=== PATIENT | female | born 1975 | race Caucasian/White ===

== ENCOUNTER 2016-07-12 18:53 | Emergency (ER) | payer OTHER ==
[~2016-07-12] VITALS: Ht 160 cm; Wt 71.7 kg
[~2016-07-12 18:53] MED LIST: AMBIEN 10MG10 MG PO; CLONAZEPAM1 MG PO; FLEXERIL10 MG PO; LAMICTAL200 MG PO; LEVOTHROID SO0.05 MG PO; MOBIC 15MG15 MG PO; MOBIC15 MG PO; MOTRIN 600 MG600 MG PO; NAPROXEN500 MG PO; PERCOCET 325 MG1 TA2 PO; PREDNISONE 20MG20 MG PO; VENLAFAXINE HY150 MG PO; VENLAFAXINE HYD75 M1 PO; VICODIN5-300 PO
--- NOTE | 2016-07-12 20:35 | ED MVC/FALL/TRAUMA COMPLAINT ---
History of Present Illness General Chief Complaint: Headache Stated Complaint: PT FELL AND GETTING HEADACHES Source: patient Exam Limitations: no limitations Vital Signs & Intake/Output Vital Signs & Intake/Output Vital Signs Date Time Temp Pulse Resp B/P Pulse O2 O2 Flow FiO2 Ox Delivery Rate 07/120 96.7 80 20 128/80 07/12 1913 97.2 84 20 129/84 97 Room Air ED Intake and Output 07/13 0000 07/12 1200 Intake Total Output Total Balance Patient 158 lb Weight Allergies Coded Allergies: cat dander (UNKNOWN 08/31/15) Reconcile Medications Clonazepam 1 MG TAB 1 TAB PO BID DEPRESSION (Reported) Cyclobenzaprine HCl 10 MG TABLET 1 TAB PO TID spasms Hydrocodone/Acetaminophen (Hydrocodon-Acetaminophen 5-325) 5 MG-325 MG TABLET 1-2 TAB PO Q4-6 PRN PRN pain Ibuprofen 800 MG TABLET 1 TAB PO TID pain Ibuprofen (Motrin 600 MG Tab) 600 MG TAB 1 TAB PO Q6P PRN PAIN Lamotrigine (Lamictal) 200 MG TAB 1 TAB PO DAILY DEPRESSION (Reported) Levothyroxine Sodium (Levothroid Sodium) 0.05 MG TAB 1 TAB PO DAILY AC THYROID (Reported) Naproxen 500 MG TAB 1 TAB PO BID PAIN OXYCODONE HCL/ACETAMINOPHEN (Percocet 5-325 MG Tablet) 325 MG/5 MG TAB 1 TAB PO Q4-6 PRN PRN PAIN VENLAFAXINE HCL (Venlafaxine HCl ER) 75 MG CER 1 CAP PO DAILY DEPRESSION ( Reported) VENLAFAXINE HCL (Venlafaxine HCl ER) 150 MG CER 1 CAP PO DAILY DEPRESSION ( Reported) Zolpidem Tartrate (Ambien 10MG) 10 MG TAB 1 TAB PO QPM SLEEP (Reported) Triage Note: PT TO ED C/O CONTINUED THROBBING HEADACHES, RT SHOULDER AND ARM PAIN S/P FALL 2 WEEKS AGO. HAD XRAYS AFTER FALL. "THE ALIGNMENT IS WRONG ON MY NECK" TAKES RA MEDS AND PERCOCETS 7.5 MG WITH NO RELIEF. Triage Nurses Notes Reviewed? yes Onset: Abrupt Duration: week(s): (2), continues in ED Severity: moderate, severe Injuries/Fall Location: head, neck, upper extremity Loss of Consciousness: brief (seconds) No Modifying Factors: none : No Patient currently breastfeeds: No HPI: 41-year-old female comes in for further evaluation after falling 2 weeks ago her head. Patient reports that she had a loss of consciousness. Patient reports that since the fall that she's had some persistent headaches bitemporal as well as neck pain. Patient had some x-rays of her neck but reports that her symptoms are getting progressively worse and she has pain in her right shoulder now is well. Denies any vomiting. Denies any confusion or slurring of words. Patient has a history of rheumatoid arthritis and reports that she falls intermittently due to pain issues and this is how she fell a couple weeks ago. (MARIA DEL CARMEN OMALLEY) Past History Travel History Traveled to [place] past 21 day No Medical History Any Pertinent Medical History? see below for history Neurological: NONE EENT: NONE Cardiovascular: NONE Respiratory: asthma Gastrointestinal: NONE Hepatic: NONE Renal: NONE Musculoskeletal: rheumatoid arthritis Psychiatric: NONE Endocrine: hypothyroidism Blood Disorders: NONE Cancer(s): NONE PAROLE OR PROBATION OFFICER/Reproductive: NONE Surgical History Surgical History: APPY Psychosocial History What is your primary language Belarusian Tobacco Use: Never used ETOH Use: denies use Illicit Drug Use: denies illicit drug use Family History Hx Contributory? No (MARIA DEL CARMEN OMALLEY) Review of Systems Review of Systems Constitutional: Reports: no symptoms. Eyes: Reports: no symptoms. Ears, Nose, Throat, Mouth: Reports: no symptoms. Respiratory: Reports: no symptoms. Cardiovascular: Reports: no symptoms. Gastrointestinal/Abdominal: Reports: no symptoms. Genitourinary: Reports: no symptoms. Musculoskeletal: Reports: see HPI. Skin: Reports: no symptoms. Neurological/Psychological: Reports: see HPI. All Other Systems: Reviewed and Negative (MARIA DEL CARMEN OMLALEY) Physical Exam Physical Exam General Appearance: well developed/nourished, no apparent distress, alert Head: atraumatic, normal appearance Eyes: Bilateral: normal appearance, PERRL, EOMI. Ears, Nose, Throat, Mouth: hearing grossly normal, moist mucous membrane Neck: normal inspection, full range of motion, normal alignment, paraspinous muscle tender Respiratory: normal breath sounds, chest non-tender, no respiratory distress Cardiovascular: regular rate/rhythm Back: normal inspection Extremities: pain with forward flexion and abduction, full range of motion, radial pulse intact, sensation intact Neurologic/Psych: awake, alert, oriented x 3, normal gait, normal mood/affect Skin: intact, normal color Core Measures ACS in differential dx? No Severe Sepsis Present: No Septic Shock Present: No (MARIA DEL CRAMEN OMALLEY) Progress Differential Diagnosis: abd injury, C/T/L spine injury, ext injury, ICH, pelvis injury, pnemothorax, spinal cord injury Plan of Care: Orders Procedure Date/time Status URINE 07/12 2026 Complete Laboratory Tests 07/12/162129: Urine Test NEGATIVE Diagnostic Imaging: Viewed by Me: Radiology Read, CT Scan. Discussed w/RAD: Radiology Read, CT Scan. Radiology Impression: SERVICE DATE: 07/12/16 EXAM TYPE: RAD - XRY- SHOULDER COMPLETE-RIGHT EXAMINATION: XR SHOULDER, RIGHT CLINICAL INFORMATION: Trauma. Fall. Pain COMPARISON: None TECHNIQUE: Three views of the right shoulder. FINDINGS: There is no acute fracture, subluxation or focal lesion. No abnormal soft tissue calcification. No suspicious abnormality in the visualized right upper chest. Small cystic or erosive changes in the humeral head at the expected insertion of the rotator cuff. IMPRESSION: No fracture or subluxation demonstrated DICTATED BY: MELLY ANGULO MD , SERVICE DATE: 07/12/16 EXAM TYPE: CAT - CT CERV SPINE WO IV CONTRAST EXAMINATION: CT CERVICAL SPINE WITHOUT CONTRAST CLINICAL INFORMATION: Fall. Trauma. Pain. COMPARISON: None TECHNIQUE: Multidetector CT. Examination of the cervical spine without contrast. Postprocessing including reformatting in the coronal and parasagittal planes DLP : 876 mGy-cm total FINDINGS: No prevertebral hematoma. There is no fracture, subluxation, focal lesion or loss of volume. Small smooth ossific densities associated with the ventral aspect of the C5/C6 and C6/C7 discs are likely chronic or degenerative. No suspicious abnormality in the visualized apex of the chest. IMPRESSION: No cervical fracture or subluxation DICTATED BY: MELLY ANGULO MD , SERVICE DATE: 07/12/16 EXAM TYPE: CAT - CT HEAD WO IV CONTRAST EXAMINATION: CT HEAD WITHOUT CONTRAST CLINICAL INFORMATION: Trauma. Fall. Pain. Headache COMPARISON: None. TECHNIQUE: Multidetector CT examination of the head is performed without contrast. DLP: 876 mGy-cm total for brain and cervical CT FINDINGS: There is no evidence of a recent intracranial hemorrhage or extra- axial collection. The midline structures are nondisplaced. The ventricles, cisterns, and sulci are within normal limits. There is no evidence of an intra- axial mass. There are no suspicious focal areas of abnormal brain attenuation. The merrill-white interface is within normal limits. There is no evidence of acute territorial infarct. No fluid. There is irregularity of the mandibular condyles on each side which appears chronic IMPRESSION: 1. There is no evidence of a recent intracranial hemorrhage. 2. No acute infarct. DICTATED BY: MELLY ANGULO MD DATE/TIME DICTATED:07/12/162213 FOOD SERVICE DIRECTOR:JACKELYN (NIYAH MARIA DEL CARMEN COMER) Departure Departure Disposition: HOME OR SELF CARE Condition: Stable Clinical Impression Primary Impression: Cervical strain Secondary Impressions: Head injury Referrals: GREGORY BO MD (PCP/Family) Additional Instructions: Take Vicodin, Flexeril, and ibuprofen as prescribed. Follow-up with orthopedic doctor. Return if any concerns worsening symptoms. Please go over all results of today's visit with your primary care doctor. Contact your primary care doctor to let them know you were here in the emergency room. There may be nonspecific findings which may not be related to your visit today here in the emergency room but may require further evaluation and chronic monitoring by your primary care doctor. If you had a laceration today the chance of foreign body always remains. You should follow-up with your primary care doctor for recheck in 3-5 days for a wound check. If you had an x-ray done there is a chance that a fracture could have been missed on initial read and you should follow-up with your primary care doctor for repeat x-rays if symptoms persist. If your blood pressure was elevated here in the emergency room please have rechecked by her primary care doctor within the next 48 hours by your primary care doctor. If you were prescribed a narcotic here in the emergency room or any type of controlled substances you're not allowed to drive while taking this medication or operate any type of heavy machinery. Narcotics can make you feel lightheaded dizziness nausea and can cause constipation. You may need to vegetable picker a stool softener. Thank you for choosing [facility] emergency room. Please return to the emergency room immediately if you have any other concerns worsening of symptoms. Departure Forms: Customer Survey General Discharge Information Prescriptions: Current Visit Scripts Ibuprofen 1 TAB PO TID #30 TAB Cyclobenzaprine HCl 1 TAB PO TID #20 TAB Hydrocodone/Acetaminophen (Hydrocodon-Acetaminophen 5-325) 1-2 TAB PO Q4-6 PRN PRN pain #10 TAB (MARIA DEL CARMEN OMALLEY) PA/COAL DUMPING EQUIPMENT OPERATOR Co-Sign Statement Statement: ED Attending supervision documentation- [] I saw and evaluated the patient. I have also reviewed all the pertinent lab results and diagnostic results. I agree with the findings and the plan of care as documented in the PA's/COAL DUMPING EQUIPMENT OPERATOR's documentation. x I have reviewed the ED Record and agree with the PA's/COAL DUMPING EQUIPMENT OPERATOR's documentation. [] Additions or exceptions (if any) to the PAs/COAL DUMPING EQUIPMENT OPERATOR's note and plan are summarized below: [] (MANUEL ABDUL,[place])
--- NOTE | 2016-07-12 22:24 | CT SCAN REPORT ---
EXAMINATION: CT HEAD WITHOUT CONTRAST CLINICAL INFORMATION: Trauma. Fall. Pain. Headache COMPARISON: None. TECHNIQUE: Multidetector CT examination of the head is performed without contrast. DLP: 876 mGy-cm total for brain and cervical CT FINDINGS: There is no evidence of a recent intracranial hemorrhage or extra-axial collection. The midline structures are nondisplaced. The ventricles, cisterns, and sulci are within normal limits. There is no evidence of an intra-axial mass. There are no suspicious focal areas of abnormal brain attenuation. The merrill-white interface is within normal limits. There is no evidence of acute territorial infarct. No fluid. There is irregularity of the mandibular condyles on each side which appears chronic IMPRESSION: 1. There is no evidence of a recent intracranial hemorrhage. 2. No acute infarct.
[2016-07-12 22:30] VITALS: BP 128/80
--- NOTE | 2016-07-12 22:30 | CT SCAN REPORT ---
EXAMINATION: CT CERVICAL SPINE WITHOUT CONTRAST CLINICAL INFORMATION: Fall. Trauma. Pain. COMPARISON: None TECHNIQUE: Multidetector CT. Examination of the cervical spine without contrast. Postprocessing including reformatting in the coronal and parasagittal planes DLP: 876 mGy-cm total FINDINGS: No prevertebral hematoma. There is no fracture, subluxation, focal lesion or loss of volume. Small smooth ossific densities associated with the ventral aspect of the C5/C6 and C6/C7 discs are likely chronic or degenerative. No suspicious abnormality in the visualized apex of the chest. IMPRESSION: No cervical fracture or subluxation
--- NOTE | 2016-07-12 22:37 | RADIOLOGY REPORT ---
EXAMINATION: XR SHOULDER, RIGHT CLINICAL INFORMATION: Trauma. Fall. Pain COMPARISON: None TECHNIQUE: Three views of the right shoulder. FINDINGS: There is no acute fracture, subluxation or focal lesion. No abnormal soft tissue calcification. No suspicious abnormality in the visualized right upper chest. Small cystic or erosive changes in the humeral head at the expected insertion of the rotator cuff. IMPRESSION: No fracture or subluxation demonstrated
[2016-07-12] MEDS ORDERED: HYDROCODON-ACE1 EAC2 PO (23:02)
[2016-07-12] MEDS ORDERED: CYCLOBENZAPRINE10 M1 PO (23:02)
[2016-07-12] MEDS ORDERED: IBUPROFEN800 M1 PO (23:02)
== END 2016-07-12 23:32 ==
LOC: ERH 18:53
DX: S16.1XXA Strain of muscle, fascia and tendon at neck level, initial encounter (principal); S06.9X1A Unspecified intracranial injury with loss of consciousness of 30 minutes or less, initial encounter; W19.XXXA Unspecified fall, initial encounter; Y93.9 Activity, unspecified; Y92.9 Unspecified place or not applicable
CPT/HCPCS: 73030-RT; 81025

== ENCOUNTER 2016-08-05 19:50 | Inpatient (IN) | payer OTHER ==
[~2016-08-05] VITALS: Ht 160 cm; Wt 76.2 kg
[~2016-08-05 19:50] MED LIST changes: +CYCLOBENZAPRINE10 M1 PO; +HYDROCODON-ACE1 EAC2 PO; +IBUPROFEN800 M1 PO
--- NOTE | 2016-08-05 19:57 | NUR ---
PT TO TRIAGE WITH ASTHMA EXACERBATION SINCE YESTERDAY PROGRESSIVELY GETTING WORSE, AUDITORY WHEEZES, O2SAT 93% ON RA, INCREASED WORK OF BREATHING. PT TO ROOM1. RESP CALLED FOR CROW.
--- NOTE | 2016-08-05 20:03 | NUR ---
SOULEYMANE LINDER AT BEDSIDE TO LUIS
--- NOTE | 2016-08-05 20:06 | ED DYSPNEA/ASTHMA COMPLAINT ---
History of Present Illness General Chief Complaint: Wheezing/Asthma Stated Complaint: ASTHMA ACTING UP, DIFF BREATHING 92% 111 HR Source: patient Exam Limitations: no limitations Vital Signs & Intake/Output Vital Signs & Intake/Output Vital Signs Date Time Temp Pulse Resp B/P Pulse O2 O2 Flow FiO2 Ox Delivery Rate 08/05 2301 97.3 103 20 131/60 95 Nasal 2.0L Cannula 08/05 2128 97 Nasal 2.0L Cannula 08/06 2023 100 Nasal 3.0L Cannula 08/05 2021 94 Room Air 08/06 1955 97.1 91 28 142/89 93 Room Air Allergies Coded Allergies: cat dander (UNKNOWN 08/31/15) Reconcile Medications Adalimumab (Humira) 40 MG/0.8 ML SYRINGEKIT 40 MG SC Q2W RA (Reported) Clonazepam 0.5 MG TABLET 1 TAB PO BID ANXIETY (Reported) Folic Acid 1 MG TABLET 1 TAB PO DAILY SUPPLEMENT (Reported) Hydroxychloroquine Sulfate 200 MG TABLET 1 TAB PO BID RA (Reported) Lamotrigine 200 MG TABLET 1 TAB PO DAILY MENTAL HEALTH (Reported) Leflunomide (Arava) 20 MG TABLET 1 TAB PO BID RA (Reported) Levothyroxine Sodium 50 MCG TABLET 1 TAB PO DAILY THYROID (Reported) Oxycodone HCl/Acetaminophen (Percocet 7.5-325 MG Tablet) 7.5 MG-325 MG TABLET 1 TAB PO BID PRN PAIN (Reported) Prednisone 2.5 MG TABLET 1 TAB PO BID STEROID (Reported) Ranitidine (Ranitidine HCl) 150 MG TABLET 1 TAB PO PRN GI (Reported) Sulfasalazine 500 MG TABLET 1 TAB PO BID RA (Reported) Venlafaxine HCl (Venlafaxine HCl ER) 225 MG TAB.ER.24 1 TAB PO DAILY MENTAL HEALTH (Reported) Zolpidem Tartrate 5 MG TABLET 1 TAB PO QPM SLEEP (Reported) Triage Note: PT TO TRIAGE WITH ASTHMA EXACERBATION SINCE YESTERDAY PROGRESSIVELY GETTING WORSE, AUDITORY WHEEZES, O2SAT 93% ON RA, INCREASED WORK OF BREATHING. PT TO ROOM1. Triage Nurses Notes Reviewed? yes Onset: Abrupt Duration: day(s):, constant Timing: recent history Severity: severe : No Patient currently breastfeeds: No HPI: 41-year-old female comes into the emergency room for further evaluation of shortness of breath is been going on for the past few days getting progressively worse. Patient has a history of bronchitis and asthma. Denies any smoking. Breathing has gotten progressively worse. Denies any fever or chills or cough. Patient has associated chest tightness. Denies any other associated symptoms. (MARIA DEL CARMEN OMALLEY) Past History Travel History Traveled to [place] past 21 day No Medical History Any Pertinent Medical History? 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 No (MARIA DEL CARMEN OMALLEY) Review of Systems Review of Systems Constitutional: Reports: no symptoms. EENTM: Reports: no symptoms. Respiratory: Reports: see HPI. Cardiovascular: Reports: see HPI. GI: Reports: no symptoms. Genitourinary: Reports: no symptoms. Musculoskeletal: Reports: no symptoms. Skin: Reports: no symptoms. Neurological/Psychological: Reports: no symptoms. Hematologic/Endocrine: Reports: no symptoms. Immunologic/Allergic: Reports: no symptoms. All Other Systems: Reviewed and Negative (MARIA DEL CARMEN OMALLEY) Physical Exam Physical Exam General Appearance: well developed/nourished, alert, moderate distress Head: atraumatic, normal appearance Eyes: Bilateral: normal appearance. Ears, Nose, Throat: normal ENT inspection, hearing grossly normal Neck: normal inspection Respiratory: decreased breath sounds, rhonchi, wheezing Cardiovascular: regular rate/rhythm Gastrointestinal: soft Extremities: normal inspection, normal range of motion Neurologic/Psych: awake, alert, oriented x 3, normal gait, normal mood/affect Skin: intact, normal color Core Measures ACS in differential dx? No Severe Sepsis Present: No Septic Shock Present: No (MARIA DEL CARMEN OMALLEY) Progress Differential Diagnosis: asthma, AMI, bronchitis, costochondritis, CHF, COPD, musculoskeletal pain, pericarditis, pulmonary embolism, pneumonia, pneumothorax, rib fracture, unstable angina Plan of Care: Orders Procedure Date/time Status Nothing by Mouth 08/06 B Active Saline Lock 08/05 2313 Active Misc Message 08/05 2313 Active ED Holding Orders 08/05 2313 Active Admit to inpatient 04/16 2314 Active Vital Signs 08/05 2314 Active Code Status 08/054 Active Patient Data 08/05 2257 Active TROPONIN LEVEL 08/05 2004 Complete COMPREHENSIVE METABOLIC PANEL 08/05 2004 Complete CBC WITHOUT DIFFERENTIAL 08/05 2004 Complete EKG 08/05 2004 Active Laboratory Tests 08/05/16 2019: Anion Gap 12, Estimated GFR > 60, BUN/Creatinine Ratio 13.3, Glucose 109 H, Calcium 8.9, Total Bilirubin 0.4, AST 24, ALT 28, Alkaline Phosphatase 94, Troponin I < 0.01, Total Protein 7.3, Albumin 3.4 L, Globulin 3.9, Albumin/ Globulin Ratio 0.9 L, CBC w Diff NO MAN DIFF REQ, RBC 5.14, MCV 76.9 L, MCH 24.7 L, RDW 17.4 H, MPV 7.2 L, Gran % 49.2, Lymphocytes % 30.0, Monocytes % 10.5 H, Eosinophils % 9.6 H, Basophils % 0.7, Absolute Granulocytes 4.7, Absolute Lymphocytes 2.9, Absolute Monocytes 1.0 H, Absolute Eosinophils 0.9, Absolute Basophils 0.1, PUBS MCHC 32.1 L Diagnostic Imaging: Viewed by Me: Radiology Read. Discussed w/RAD: Radiology Read. Radiology Impression: EXAM TYPE: RAD - XRY-PORTABLE CHEST XRAY EXAMINATION: XR CHEST PORTABLE CLINICAL INFORMATION: Shortness of breath. COMPARISON: None. TECHNIQUE: Portable AP view of the chest was obtained. FINDINGS: No airspace consolidation. No pleural effusion or pneumothorax. No cardiomediastinal silhouette enlargement. No abnormal soft tissue calcification. IMPRESSION: No airspace consolidation. No significant interval change since the prior examination. Initial ED EKG: normal intervals, normal p-waves, normal sinus rhythm, rate (86) (NIYAH COMER,MARIA DEL CARMEN) Departure Departure Disposition: STILL A PATIENT Condition: Stable Clinical Impression Primary Impression: Asthma exacerbation Referrals: GREGORY BO MD (PCP/Family) Departure Forms: Customer Survey General Discharge Information Admission Note Spoke With: ZABRINA ABDUL,VY Documentation of Exam: Documentation of any treatments & extenuating circumstances including Concerns Regarding Discharge (functional status, medication knowledge or non-compliance, living conditions, etc.) that warrant an admission rather than observation: Patient will require IV steroids. Supplemental oxygen. Pulmonary consult. Serial breathing treatments. Patient would do poorly as an outpatient. Patients walking O2 saturation is 85% on room air. (MARIA DEL CARMEN OMALLEY) PA/INFORMATICA ARCHITECT Co-Sign Statement Statement: ED Attending supervision documentation- [] I saw and evaluated the patient. I have also reviewed all the pertinent lab results and diagnostic results. I agree with the findings and the plan of care as documented in the PA's/INFORMATICA ARCHITECT's documentation. [x] I have reviewed the ED Record and agree with the PA's/INFORMATICA ARCHITECT's documentation. [] Additions or exceptions (if any) to the PAs/INFORMATICA ARCHITECT's note and plan are summarized below: [] (JONAH ABDUL,AUBREE Forte) Critical Care Note Critical Care Note Critical Care Time: 30-74 min (60 minutes) (MARIA DEL CARMEN OMALLEY)
[2016-08-05] MEDS ORDERED: CLONAZEPAM0.5 M2 PO (20:12)
[2016-08-05] MEDS ORDERED: PERCOCET 7.5-31 EACH PO (20:12)
[2016-08-05] MEDS ORDERED: RANITIDINE HCL150 MG PO (20:13)
[2016-08-05] MEDS ORDERED: LAMOTRIGINE200 M2 PO (20:13)
[2016-08-05] MEDS ORDERED: ZOLPIDEM TARTRAT5 M1 PO (20:13)
[2016-08-05] MEDS ORDERED: PREDNISONE2.5 M1 PO (20:13)
[2016-08-05] MEDS ORDERED: VENLAFAXINE HC225 MG PO (20:14)
[2016-08-05] MEDS ORDERED: HUMIRA40 MG/0.1 SC (20:14)
[2016-08-05] MEDS ORDERED: ARAVA20 M1 PO (20:15)
[2016-08-05] MEDS ORDERED: LEVOTHYROXINE50 MCG PO (20:15)
[2016-08-05] MEDS ORDERED: HYDROXYCHLOROQ200 M2 PO (20:15)
[2016-08-05] MEDS ORDERED: SULFASALAZINE500 M2 PO (20:16)
[2016-08-05] MEDS ORDERED: FOLIC ACID1 M1 PO (20:16)
--- NOTE | 2016-08-05 20:22 | NUR ---
PT MEDICATED WITH SOLU MEDROL PER EMAR. TOLERATED WELL. RESP AT BEDSIDE FOR TX. BLOOD SENT TO LAB (1SST,1LAV,1GRAY,1BLUE)
[2016-08-05 20:26] LABS: ABSOLUTE BASOPHIL COUNT 0.1 /CUMM (0.0-0.2); ABSOLUTE EOSINOPHIL COUNT 0.9 /CUMM (0.0-0.7); ABSOLUTE GRANULOCYTE CT 4.7 /CUMM (1.4-6.5); ABSOLUTE LYMPH COUNT 2.9 /CUMM (1.2-3.4); BASOPHIL % 0.7 % (0.0-2.0); EOSINOPHIL % 9.6 % (0-5); GRANULOCYTE % 49.2 % (42.2-75.2); HEMATOCRIT 39.5 % (37-47); MEAN CORPUSCULAR HGB 24.7 PG (27.0-31.0); MEAN CORPUSCULAR HGB CONC 32.1 G/DL (33.0-37.0); MEAN CORPUSCULAR VOLUME 76.9 FL (81.0-99.0); MEAN PLATELET VOLUME 7.2 FL (7.4-10.4); PLATELET COUNT 380 /CUMM (130-400); RBC DISTRIBUTION WIDTH 17.4 % (11.5-14.5); RED BLOOD CELL CT 5.14 /CUMM (4.20-5.40); WHITE BLOOD CELL COUNT 9.6 /CUMM (4.8-10.8)
--- NOTE | 2016-08-05 20:37 | NUR ---
PT SATTING 98% ON 2L NC S/P SOLUMEDROL AND DUONEB. SOULEYMANE LINDER AWARE.
--- NOTE | 2016-08-05 20:49 | NUR ---
PT RECIEVING CONTINUOUS NEB AT THIS TIME BY RESPIRATORY. WILL CTM.
--- NOTE | 2016-08-05 21:30 | NUR ---
PT CONTINUES TO BE WHEEZING. SATTING 97% ON 2L NC. PROVIDER AWARE.
--- NOTE | 2016-08-05 21:32 | NUR ---
[facility] NOTIFIED THAT PT IS RECEIVING A CONTINUOUS NEB TX AND PORTABLE INDICATED FOR CXR
--- NOTE | 2016-08-05 21:49 | NUR ---
RADIOLOGY AT BEDSIDE FOR PORTABLE CHEST XRAY
--- NOTE | 2016-08-05 22:22 | NUR ---
LIVE ANDERS AMBULATED PT IN FRIEND ON RA, PT DESATTED TO 85%.
--- NOTE | 2016-08-05 22:34 | RADIOLOGY REPORT ---
EXAMINATION: XR CHEST PORTABLE CLINICAL INFORMATION: Shortness of breath. COMPARISON: None. TECHNIQUE: Portable AP view of the chest was obtained. FINDINGS: No airspace consolidation. No pleural effusion or pneumothorax. No cardiomediastinal silhouette enlargement. No abnormal soft tissue calcification. IMPRESSION: No airspace consolidation. No significant interval change since the prior examination.
--- NOTE | 2016-08-05 22:39 | NUR ---
PT SATTING 98% ON 2 L NC AT THIS TIME. WITH A HR 109. SLIGHT WHEEZING NOTED. NO ACCESSORY MUSCLE USE NOTED AT THIS TIME.
--- NOTE | 2016-08-05 23:02 | NUR ---
1GM MAG IN D5 INFUSING AT THIS TIME AT 50MLS/HR PER EMAR. PT TOLERATED WELL. PT AWAITING ADMISSION. VSS.
--- NOTE | 2016-08-05 23:03 | NUR ---
HOUSE STAFF AT BEDSIDE
--- NOTE | 2016-08-05 23:32 | History & Physical ---
BUSTER ABDUL,MINNIE 08/05/16 8261: General Information and HPI MD Statement: I have seen and personally examined BRENDA ANGULO and documented this H&P. The patient is a 41 year old F who presented with a patient stated chief complaint of [SOB]. Source of Information: patient, old records Exam Limitations: no limitations History of Present Illness: 41-year-old lady with a medical history of hypothyroidism, anxiety, depression, rheumatoid arthritis, asthma since childhood, never been intubated, apparently had an admission to [facility] 5 years ago (no records available in EMR) presents with a three-day history of progressive dyspnea. She states that this happens to her every year during spring, she ran out of her albuterol inhaler, became extremely dyspneic today subsequently came to the emergency room. The ER physician did try to ambulate with her and her oxygen saturation dropped to the mid 80s. Denies any fevers, chills, cough. Just states that it has been extremely difficult for her to breathe lately. He uses no oxygen at home. Does not see a park ranger. No recent pet or environmental exposure. Allergies/Medications Allergies: Coded Allergies: cat dander (UNKNOWN 08/31/15) Home Med list Adalimumab (Humira) 40 MG/0.8 ML SYRINGEKIT 40 MG SC Q2W RA (Reported) Clonazepam 0.5 MG TABLET 1 TAB PO BID ANXIETY (Reported) Folic Acid 1 MG TABLET 1 TAB PO DAILY SUPPLEMENT (Reported) Hydroxychloroquine Sulfate 200 MG TABLET 1 TAB PO BID RA (Reported) Lamotrigine 200 MG TABLET 1 TAB PO DAILY MENTAL HEALTH (Reported) Leflunomide (Arava) 20 MG TABLET 1 TAB PO BID RA (Reported) Levothyroxine Sodium 50 MCG TABLET 1 TAB PO DAILY THYROID (Reported) Oxycodone HCl/Acetaminophen (Percocet 7.5-325 MG Tablet) 7.5 MG-325 MG TABLET 1 TAB PO BID PRN PAIN (Reported) Prednisone 2.5 MG TABLET 1 TAB PO BID STEROID (Reported) Ranitidine (Ranitidine HCl) 150 MG TABLET 1 TAB PO PRN GI (Reported) Sulfasalazine 500 MG TABLET 1 TAB PO BID RA (Reported) Venlafaxine HCl (Venlafaxine HCl ER) 225 MG TAB.ER.24 1 TAB PO DAILY MENTAL HEALTH (Reported) Zolpidem Tartrate 5 MG TABLET 1 TAB PO QPM SLEEP (Reported) Past History Travel History Traveled to [place] past 21 day No Medical History Neurological: NONE EENT: NONE Cardiovascular: NONE Respiratory: asthma Gastrointestinal: NONE Hepatic: NONE Renal: NONE Musculoskeletal: rheumatoid arthritis Psychiatric: NONE Endocrine: hypothyroidism Blood Disorders: NONE Cancer(s): NONE INCIDENT ANALYST/Reproductive: NONE Surgical History Surgical History: appendectomy Review of Systems Review of Systems Constitutional: Reports: see HPI. Exam & Diagnostic Data Last 24 Hrs of Vital Signs/I&O Vital Signs Date Time Temp Pulse Resp B/P Pulse O2 O2 Flow FiO2 Ox Delivery Rate 08/05 2301 97.3 103 20 131/60 95 Nasal 2.0L Cannula 08/05 2128 97 Nasal 2.0L Cannula 08/06 2023 100 Nasal 3.0L Cannula 08/05 2021 94 Room Air 08/06 1955 97.1 91 28 142/89 93 Room Air Physical Exam General Appearance Alert, Oriented X3, Cooperative, No Acute Distress HEENT Atraumatic, PERRLA, EOMI Cardiovascular Regular Rate, Normal S1, Normal S2 Lungs B/L DIFFUSE RONCHII AND RALES Abdomen Normal Bowel Sounds, Soft, No Tenderness Neurological Normal Gait, Normal Speech, Strength at 5/5 X4 Ext, Normal Tone, Sensation Intact, Cranial Nerves 3-12 NL Last 24 Hrs of Labs/Shreyas: Laboratory Tests 08/05/16 2019: Anion Gap 12, Estimated GFR > 60, BUN/Creatinine Ratio 13.3, Glucose 109 H, Calcium 8.9, Total Bilirubin 0.4, AST 24, ALT 28, Alkaline Phosphatase 94, Troponin I < 0.01, Total Protein 7.3, Albumin 3.4 L, Globulin 3.9, Albumin/ Globulin Ratio 0.9 L, CBC w Diff NO MAN DIFF REQ, RBC 5.14, MCV 76.9 L, MCH 24.7 L, RDW 17.4 H, MPV 7.2 L, Gran % 49.2, Lymphocytes % 30.0, Monocytes % 10.5 H, Eosinophils % 9.6 H, Basophils % 0.7, Absolute Granulocytes 4.7, Absolute Lymphocytes 2.9, Absolute Monocytes 1.0 H, Absolute Eosinophils 0.9, Absolute Basophils 0.1, PUBS MCHC 32.1 L Diagnostic Data EKG Results Rate 86, SD 144, QRS 88, QTC 488 Sinus rhythm CXR Results PATIENT: BRENDA ANGULO PRESENT AGE: 41 PATIENT ACCOUNT NO: [id number] : 77 LOCATION: [facility] ORDERING PHYSICIAN: MARIA DEL CARMEN COMER SERVICE DATE: 08/05/16 EXAM TYPE: RAD - XRY-PORTABLE CHEST XRAY EXAMINATION: XR CHEST PORTABLE CLINICAL INFORMATION: Shortness of breath. COMPARISON: None. TECHNIQUE: Portable AP view of the chest was obtained. FINDINGS: No airspace consolidation. No pleural effusion or pneumothorax. No cardiomediastinal silhouette enlargement. No abnormal soft tissue calcification. IMPRESSION: No airspace consolidation. No significant interval change since the prior examination. DICTATED BY: LEONIE PETTY MD DATE/TIME DICTATED:08/05/162225 POULTRY HATCHERY MAN:JACKELYN DATE/TIME TRANSCRIBED:08/05/162225 CONFIDENTIAL, DO NOT COPY WITHOUT APPROPRIATE AUTHORIZATION. <Electronically signed in Other Vendor System> SIGNED BY: LEONIE PETTY MD 2233 Assessment/Plan Assessment: Assessment- 1. SIRS, likely secondary to asthma exacerbation 2. Asthma exacerbation 3. Hypothyroidism 4. Rheumatoid arthritis 5. Anxiety and depression Plan- Gen med admission Vitals per protocol Solu-Medrol 40 every 8 Accu-Cheks while on steroids Daily peak flow TRC evaluation and treatment Pulmonary consultation in the morning Continue all other home meds Will get CT angiogram, PE protocol Pain pathway Regular diet Subcutaneous heparin for DVT prophylaxis Full code Addendum 08/06/16 at 2:30 AM- Her CTA shows no PE but is suggestive of PNA. Blood cultures x 2 were ordered, pt started on Ceftriaxone and Azithromycin for suspected CAP. As Ranked By This Provider Problem List: 1. Asthma exacerbation Core Measures/Miscellaneous Acute Coronary Syndrome ACS Diagnosis: No Cerebrovascular Accident CVA/TIA Diagnosis: No Congestive Heart Failure CHF Diagnosis: No Venous Thromboembolism VTE Risk Factors: Age > 40 [facility] prophylaxis d/t: No contraindications No VTE Pharm Prophylaxis d/t: No contraindications VTE Diagnosis: No VTE Type: NONE VTE Confirmed by (Test): NONE Severe Sepsis Severe Sepsis Present: No Septic Shock Septic Shock Present: No Miscellaneous Documentation Attending Case Discussed With: DR. GERBER Primary Care Physician: GREGORY BO MD Patient sees these Specialists [facility] Level of Patient Care: General Medicine Resident Review Statement Resident Statement: examined this patient, discussed with international account manager ZABRINA ABDUL, [facility] 08/06/16 0000: Attending MD Review Statement Attending Statement Attending MD Statement: examined this patient, discuss w/resident/PA/CARD PUNCHING MACHINE OPERATOR, agreed w/resident/PA/CARD PUNCHING MACHINE OPERATOR, reviewed EMR data (avail) Attending Assessment/Plan: 41 yo F with h/o childhood asthma, RA (on prednisone), hypothyroidism (stopped synthroid), anxiety, depression, is here with 3-day h/o worsening dyspnea on exertion. Denies smoking. She ran out of her albuterol inhaler. Denies cough/ phlegm, fever or chills. She reports her last asthma exacerbation was 5-6 yrs ago, never intubated and she does not follow a Printing Machine Operator Tape Rules. She has a pet dog at home. On ER arrival O2 dats were low 90's on RA with work of breathing and wheezing. She received solumedrol, mag sulf and multiple doses of albuterol, after which ambulatory sats were checked 85% on RA. Vitals: afebrile, tachycardic to 90-100's, BP 136/72, sats 95% on 2L. Chest b/l diffuse expiratory wheeze and rhonchi++, LE: b/l erythematous, warm and swollen 2/2 rheumatoid arthritis (not a new finding). Labs: WBC 9.6, eosinophils 9.6, trop neg, TSH 5.420, free T4 1.117. CXR: no airspace consolidation. EKG: SR, Qtc prolonged. 1. Acute hypoxic respiratory failure 2/2 asthma exacerbation with peripheral eosinophilia. GM admit, TRC nebs, check flu swab, sputum culture if able, IV solumedrol, no need for antibiotics. Anti-tussives PRN. Daily peak flows. Keep O2 sats > 92%. Check CTA to rule out PE and assess lung parenchyma. Pulm consult in AM. Check urine tox screen. 2. Rheumatoid arthritis. Patient is on chronic prednisone. She is also on disease modifying drugs hydroxychloroquine, sulfasalazine, leflunomide and adalimumab for her rheumatoid. These drugs have about 1-5% chances of worsening bronchospasm, hence will hold them for now. Please confirm with patient's activated sludge attendant (Rianna Rosen) about her current rheumatoid meds and resume based on her respiratory status. 3. Hypothyroidism. Resume synthroid. DVT ppx Lovenox. Full code. Update: 2.30 AM: CTA showed consolidative disease in the middle lobe c/w pneumonia. No PE. Given that patient is on chronic immunosuppresive therapy, she may not spike a fever or mount a WBC count, hence we have initiated Ceftriaxone and azithromycin to cover for CAP.
--- NOTE | 2016-08-05 23:51 | NUR ---
PHARMACY CALLED FOR MEDICATIONS
--- NOTE | 2016-08-06 00:01 | Admission Certification ---
Admission Certification Certification Statement - As attending physician, I certify that at the time of - admission, based on clinical presentation, severity of - symptoms, need for further diagnostic testing and - therapeutic interventions, and risk of adverse outcomes - without in-hospital treatment, in my clinical assessment, - this patient requires an acute hospital stay for a minimum - of two nights or longer. I have also considered psychsocial - factors such as support system, advanced age, financial - issues, cognitive issues, and failed out-patient treatments, - past re-admission history, safety of patient, and lack of - compliance as applicable. Specific rationale supporting this admission is: Acute hypoxic respiratory failure, asthma exacerbation.
--- NOTE | 2016-08-06 00:23 | NUR ---
PT IS GOING TO 204-2
--- NOTE | 2016-08-06 00:25 | NUR ---
PT MEDICATED WITH NIGHTTIME MEDS.
--- NOTE | 2016-08-06 00:26 | NUR ---
CALLED CAT SCAN, WILL BE COMING FOR PT
--- NOTE | 2016-08-06 00:37 | NUR ---
REPORT GIVEN TO WENDY DELAROSA
[2016-08-06 02:12] VITALS: BP 140/70
--- NOTE | 2016-08-06 02:17 | CT SCAN REPORT ---
EXAMINATION: CT ANGIOGRAM OF THE CHEST WITH AND WITHOUT CONTRAST (CT PULMONARY ANGIOGRAM FOR PE) CLINICAL INFORMATION: Shortness of breath. Cough. Wheezing. Tachycardia. COMPARISON: Chest radiograph 08/05/2016. TECHNIQUE: Prior to contrast administration, noncontrast localization images were obtained. Subsequently, multidetector volumetric imaging was performed from the thoracic inlet to below the diaphragms following the administration of 90 mL Optiray 320 intravenous contrast. No contrast reaction reported. Sagittal, coronal, and MIP oblique sagittal reformatted images were obtained on the CT workstation, uploaded to PACS, and reviewed. Total exam dose-length product 442 mGy-cm. FINDINGS: The timing of the contrast bolus injection provides adequate opacification of the pulmonary arterial vasculature. There is however some degradation of image quality due to patient motion. No central luminal filling defect is visualized to suggest the presence of a acute pulmonary embolism. There is focal consolidative disease within the medial segment of the middle lobe that is most consistent with pneumonia. Otherwise no worrisome pulmonary nodule. There is no pleural effusion. No pneumothorax. The trachea and major airways are patent. The heart is normal in size. There is no pericardial effusion. The thoracic aortic arch is normal. Origins of the major aortic branches are widely patent. Limited visualization of the thoracic outlet including the thyroid gland are unremarkable. IMPRESSION: Consolidative disease within the medial segment of the middle lobe is most consistent with pneumonia. There is no evidence of acute pulmonary embolism. VTE: Negative.
--- NOTE | 2016-08-06 05:18 | NUR ---
PT ARRIVED TO FLOOR APPX 0115. PT ANXIOUS BUT COOPERATIVE, SATTING 95% ON 2L NC WITH TENDENCY TO REMOVE OXYGEN. INSPIRATORY AND EXPIRATORY WHEEZES HEARD ON AUSCULTATION. PT'S LOWER EXTREMITIES TRACE TO +1 SWELLING. SMALL DOT-LIKE SPOTS TO PATIENT'S LEG. PT STATED THAT HER LEGS ARE CONSTANTLY ITCHY. PT REPORTED FALL ABOUT THREE MONTHS AGO THAT RESULTED IN RIGHT SHOULDER NOT BEING ABLE TO BACK A CIRCULAR MOTION WITHOUT CRACKING OR HURTING. PT ALSO REPORTS HEADACHE AND STATES HER LEG PAIN IS BASELINE AND NOW RATING AT 8/10. URINALYSIS AND FLU SWAB SENT TO LABL. BEFORE GIVING SECOND BOLUS OF MG, THIS RN NOTED NO MG WAS DRAWN. MD CONTACTED WHO THEN ORDERED AN ADD-ON AND ORDERED RN TO HOLD MAGNESIUM UNTIL ABX WERE DONE. ABX HUNG AND RUNNING. MG FROM LAB REPORTED AT 1.9. MD CONTACTED. ORDERED SECOND BOLUS OF MG TO NOT BE RUN.
[2016-08-06 06:00] VITALS: BP 137/73
--- NOTE | 2016-08-06 07:39 | PN- Housestaff ---
IAIN BOSS 08/06/16 0739: Subjective Follow-up For: Asthma exacerbation Subjective: Seen and examined patient this morning. I saw her after she ambulated to the bathroom and came back. She seems very anxious and jittery and short of breath. She was able to complete sentences. Zachary that her breathing improved since her admission however is not back to her baseline. Denied chest pain, palpitations. Review of Systems Constitutional: Denies: chills, diaphoresis, fever, malaise, weakness, unexplained weight loss. Cardiovascular: Denies: chest pain, edema, orthopena, palpitations, peripheral edema, syncope. Respiratory: Reports: short of breath. Denies: cough, hemoptysis, orthopnea, sputum production, stridor, wheezing. Objective Last 24 Hrs of Vital Signs/I&O Vital Signs Date Time Temp Pulse Resp B/P Pulse O2 O2 Flow FiO2 Ox Delivery Rate 08/06 1425 97.9 68 20 150/71 98 Room Air 08/06 1103 96 Nasal 2.0L Cannula 08/06 1011 Nasal Cannula 08/06 0800 Room Air 08/06 0600 97.4 83 24 137/73 95 Nasal 2.0L Cannula 08/06 0212 98.0 102 28 140/70 95 Nasal 2.0L Cannula 08/06 0118 Nasal 2.0L Cannula 08/06 0027 97.3 97 20 136/72 95 Nasal 2.0L Cannula 08/05 2302 97.3 103 20 131/60 95 Nasal 2.0L Cannula 08/059 97 Nasal 2.0L Cannula 08/06 2023 100 Nasal 3.0L Cannula 08/05 2021 94 Room Air 08/05 1956 97.1 91 28 142/89 93 Room Air Intake & Output 08/06 1600 08/06 0800 08/06 0000 Intake Total 1180 0 Output Total 500 Balance 680 0 Intake, IV 380 Intake, Oral 800 0 Output, Urine 500 Patient 168 lb 160 lb Weight Physical Exam General Appearance: Alert, Oriented X3, Cooperative, No Acute Distress Cardiovascular: Regular Rate, Normal S1, Normal S2 Lungs: Normal Air Movement, b/l wheezing Extremities: No Edema Current Medications: Current Medications Sig/Carlos Start time Last Medication Dose Route Stop Time Status Admin Acetaminophen 650 MG Q4P PRN 08/06 1145 AC 04/17 PO 1235 Albuterol Sulfate 3 ML EVERY 4 HRS/AWAKE 08/06 1200 AC 08/06 INH 1100 Albuterol Sulfate 3 ML ONCE ONE 08/05 204 DC 08/05 INH 08/05 Albuterol Sulfate 3 ML ONCE ONE 08/05 2045 DC 08/05 INH 08/05 Albuterol Sulfate 3 ML ONCE ONE 08/05 2045 DC 08/05 INH 08/05 Albuterol Sulfate 3 ML ONCE ONE 08/05 2045 DC 08/05 INH 08/05 2045 204 Albuterol Sulfate 3 ML ONCE ONE 08/05 204 DC 08/05 INH 08/05 Albuterol Sulfate 3 ML ONCE ONE 08/05 2044 DC 08/05 INH 08/05 Albuterol Sulfate 3 ML ONCE ONE 08/05 2014 DC 08/05 INH 08/05 Azithromycin 500 MG DAILY 08/06 0245 AC 08/06 Sodium Chloride 250 ML IV 0339 Ceftriaxone Sodium 1,000 MG DAILY 08/06 0245 AC 08/06 IV 0331 Clonazepam 0 .STK-MED ONE 08/06 0023 DC PO Clonazepam 0.5 MG BID 08/05 2341 AC 08/06 PO 08/12 2340 0025 Folic Acid 1 MG DAILY 08/06 1000 AC 08/06 PO 0945 Heparin Sodium 5,000 UNIT Q8 08/06 0600 AC (Porcine) SC Hydroxychloroquine 200 MG BID 08/05 2359 DC 08/06 Sulfate PO 0025 Ipratropium [place] 2.5 ML ONCE ONE 08/05 2014 DC 08/05 INH 08/05 Lamotrigine 200 MG DAILY 08/06 1000 AC 08/06 PO 0945 Leflunomide 20 MG BID 08/06 1000 DC PO Leflunomide 20 MG DAILY 08/06 1000 CAN PO Levothyroxine Sodium 0.05 MG DAILY AC 08/06 0700 AC 08/06 PO 0649 Magnesium Sulfate 1 GM Q2H 08/05 2245 DC 08/05 Dextrose/Water 100 ML IV 08/07 0244 2301 Methylprednisolone 40 MG Q12 08/06 2200 AC IV Methylprednisolone 40 MG Q8 08/06 0600 DC 08/06 IV 0638 Methylprednisolone 0 .STK-MED ONE 08/05 2018 DC .ROUTE Methylprednisolone 125 MG ONCE ONE 08/05 2014 DC 08/05 IV 08/05 Non-Formulary 0 SEE ADMIN CRITERIA 08/06 0915 CAN Medication ANY Omeprazole 40 MG DAILY AC 08/06 0700 AC 08/06 PO 0649 Oxycodone HCl 7.5 MG Q12 08/06 1000 AC 08/06 PO 0946 Oxycodone/ 1 TAB Q12P PRN 08/05 2345 DC 08/06 Acetaminophen PO 0306 Patient Medication 1 ED .STK-MED ONE 08/06 1322 DC Teaching ED 08/06 1323 Potassium Chloride 0 .STK-MED ONE 08/06 0023 DC PO Potassium Chloride 60 MEQ ONCE ONE 08/05 2345 DC 08/06 PO 08/05 2346 0025 Sulfasalazine 500 MG BID 08/05 2359 DC 08/06 PO 0025 Venlafaxine HCl 225 MG 0800 08/06 0800 AC 08/06 PO 0945 Zolpidem Tartrate 5 MG QPM 08/06 2200 AC PO Last 24 Hrs of Lab/Shreyas Results Last 24 Hrs of Labs/Mics: Laboratory Tests 08/06/1615: Anion Gap 14, Estimated GFR > 60, BUN/Creatinine Ratio 18.0, CBC w Diff NO MAN DIFF REQ, RBC 4.61, MCV 76.2 L, MCH 25.5 L, RDW 17.5 H, MPV 7.7, Gran % 90.6 H, Lymphocytes % 5.7 L, Monocytes % 3.6, Eosinophils % 0, Basophils % 0.1, Absolute Granulocytes 5.8, Absolute Lymphocytes 0.4 L, Absolute Monocytes 0.2, Absolute Eosinophils 0, Absolute Basophils 0, PUBS MCHC 33.4 08/06/16 0253: Urine Opiates Screen 105.00, Methadone Screen > 735 H, Barbiturate Screen < 60, Ur Phencyclidine Scrn 10.40, Amphetamines Screen < 100, U Benzodiazepines Scrn < 85, Urine Cocaine Screen < 50, Urine Cannabis Screen < 5.00, Urine Color YEL, Urine Clarity HAZY H, Urine pH 6.0, Ur Specific [place] <= 1.005, Urine Protein NEG, Urine Ketones NEG, Urine Nitrite NEG, Urine Bilirubin NEG, Urine Urobilinogen 0.2, Ur Leukocyte Esterase NEG, Ur Microscopic SEDIMENT EXAMINED, Urine RBC 25-50 H, Urine WBC 1-3 H, Ur Epithelial Cells FEW, Urine Crystals 1+ HIPPURATE, Urine Bacteria FEW H, Urine Hemoglobin LARGE H, Urine Glucose 250 H 08/05/16 2019: Anion Gap 12, Estimated GFR > 60, BUN/Creatinine Ratio 13.3, Glucose 109 H, Calcium 8.9, Magnesium 1.9, Total Bilirubin 0.4, AST 24, ALT 28, Alkaline Phosphatase 94, Troponin I < 0.01, Total Protein 7.3, Albumin 3.4 L, Globulin 3.9, Albumin/Globulin Ratio 0.9 L, TSH 5.420 H, Free T4 1.17, Total Beta HCG NEGATIVE, CBC w Diff NO MAN DIFF REQ, RBC 5.14, MCV 76.9 L, MCH 24.7 L, RDW 17.4 H, MPV 7.2 L, Gran % 49.2, Lymphocytes % 30.0, Monocytes % 10.5 H, Eosinophils % 9.6 H, Basophils % 0.7, Absolute Granulocytes 4.7, Absolute Lymphocytes 2.9, Absolute Monocytes 1.0 H, Absolute Eosinophils 0.9, Absolute Basophils 0.1, PUBS MCHC 32.1 L Microbiology 08/07 719 BLOOD: Blood Culture - RECD 08/06 714 BLOOD: Blood Culture - RECD 08/06 309 NASOPHARYN: Influenza Virus A & B Rapid Smear - COMP 08/06 252 URINE ROUT: Legionella Antigen - COMP 08/06 252 URINE ROUT: Streptococcus pneumoniae Antigen (M - COMP 08/06 156 LOWER RESP: Respiratory Culture - COLB 08/06 156 LOWER RESP: Gram Stain - COLB Assessment/Plan Assessment: 41 -year-old woman nonsmoker with past medical history significant for asthma diagnosed in childhood (last exacerbation 5 years ago), RA (on prednisone and disease modifying drugs), hypothyroidism, anxiety, depression, current admission for dyspnea, low O2 sats (90's) on RA. CTA chest ruled out PE, positive for focal consolidative disease within the medial segment of the middle lobe that is most consistent with pneumonia. Continues to have bilateral wheezing this morning on examination. Problem list Asthma exacerbation Pneumonia Hypothyroidism Rheumatoid arthritis Anxiety and depression Plan: Initially started on IV Solu-Medrol 40 mg every 8 hours Pulmonary consulted today, recommending decreasing dose of steroids as it might be causing her to be more anxious and jittery. Daily peak flow ordered, today was 150 Continue IV ceftriaxone/IV azithromycin day 2, afebrile overnight Will try to reach out to her analysis consultant to confirm her medications, continue home meds of leflunomide, Lamictal, Synthyroid, Effexor, Prilosec, Ambien repeat cbc on 08/08/16 Regular diet DVT prophylaxis: Q heparin Patient is a full code Problem List: 1. Asthma exacerbation 2. Hypothyroid 3. Anxiety Pain Ratin Pain Location: na Pain Goal: Pain 4 or less Pain Plan: current regimen Tomorrow's Labs & Rationales: none required JANEE DUKE MD 08/06/16 1310: Attending MD Review Statement Attending Statement Attending MD Statement: examined this patient, discuss w/resident/PA/MIDDLE SCHOOL SPANISH TEACHER, agreed w/resident/PA/MIDDLE SCHOOL SPANISH TEACHER, discussed with family, reviewed EMR data (avail), discussed with nursing, discussed with case mgmt, amended to note Attending Assessment/Plan: Patient seen and examined. Lying in bed. She is not in loco respiratory distress although uncomfortable. She does report feeling better compared to presentation. She denies any chest pain. She is maintaining saturation on 2 L of oxygen. On auscultation she does have diffuse wheezing bilaterally. There is no use of accessory muscles. She does appear mildly agitated. Recommendations: -Pulmonary follow-up appreciated. The reduction of his Synthroid dose as recommended due to her anxiety. -Monitor PFTs daily. -Confirmed from her rheumatologic regimen and steroid dose with her analysis consultant prior to discharge. -There is no indication for repeat chemistry tomorrow. Repeat CBC in 48 hours to ensure stability.
[2016-08-06 08:30] LABS: ABSOLUTE BASOPHIL COUNT 0 /CUMM (0.0-0.2); ABSOLUTE EOSINOPHIL COUNT 0 /CUMM (0.0-0.7); ABSOLUTE GRANULOCYTE CT 5.8 /CUMM (1.4-6.5); ABSOLUTE LYMPH COUNT 0.4 /CUMM (1.2-3.4); ABSOLUTE MONOCYTE COUNT 0.2 /CUMM (0.10-0.60); BASOPHIL % 0.1 % (0.0-2.0); EOSINOPHIL % 0 % (0-5); HEMATOCRIT 35.1 % (37-47); MEAN CORPUSCULAR HGB 25.5 PG (27.0-31.0); MEAN CORPUSCULAR HGB CONC 33.4 G/DL (33.0-37.0); MEAN CORPUSCULAR VOLUME 76.2 FL (81.0-99.0); MEAN PLATELET VOLUME 7.7 FL (7.4-10.4); RBC DISTRIBUTION WIDTH 17.5 % (11.5-14.5); RED BLOOD CELL CT 4.61 /CUMM (4.20-5.40); WHITE BLOOD CELL COUNT 6.4 /CUMM (4.8-10.8)
[2016-08-06 08:56] LABS: GRANULOCYTE % 90.6 % (42.2-75.2); PLATELET COUNT 306 /CUMM (130-400)
--- NOTE | 2016-08-06 12:35 | Cons- Pulmonary ---
General Information and HPI Consulting Request Date of Consult: 08/06/16 Requested By: Dr. Wright Reason for Consult: asthma exacerbation/pna Source of Information: patient Exam Limitations: no limitations History of Present Illness: 41 year old woman. Consultation for asthma in setting of pneumonia. PMH - hypothyridism, RA on humira and prednisone, asthma since childhood. No history of intubation. Not on inhalers at home, not a smoker. Presented with a hx of 3 days of dyspnea, she used to have an albuterol mdi inhaler that ran out. Spring allergies are likely. Admitted due to low saturation. No environmental exposures. CTA 07/2016 - consolidation medial segment of RML No leukocytosis, aferbrile. Feels better with steroids, however makes her jittery. No sick contacts or travel history. No n/v/d/c. No cough at this time. Allergies/Medications Allergies: Coded Allergies: cat dander (UNKNOWN 08/31/15) Home Med List: Adalimumab (Humira) 40 MG/0.8 ML SYRINGEKIT 40 MG SC Q2W RA (Reported) Clonazepam 0.5 MG TABLET 1 TAB PO BID ANXIETY (Reported) Folic Acid 1 MG TABLET 1 TAB PO DAILY SUPPLEMENT (Reported) Hydroxychloroquine Sulfate 200 MG TABLET 1 TAB PO BID RA (Reported) Lamotrigine 200 MG TABLET 1 TAB PO DAILY MENTAL HEALTH (Reported) Leflunomide (Arava) 20 MG TABLET 1 TAB PO BID RA (Reported) Levothyroxine Sodium 50 MCG TABLET 1 TAB PO DAILY THYROID (Reported) Oxycodone HCl/Acetaminophen (Percocet 7.5-325 MG Tablet) 7.5 MG-325 MG TABLET 1 TAB PO BID PRN PAIN (Reported) Prednisone 2.5 MG TABLET 1 TAB PO BID STEROID (Reported) Ranitidine (Ranitidine HCl) 150 MG TABLET 1 TAB PO PRN GI (Reported) Sulfasalazine 500 MG TABLET 1 TAB PO BID RA (Reported) Venlafaxine HCl (Venlafaxine HCl ER) 225 MG TAB.ER.24 1 TAB PO DAILY MENTAL HEALTH (Reported) Zolpidem Tartrate 5 MG TABLET 1 TAB PO QPM SLEEP (Reported) Current Medications: Current Medications Sig/Carlos Start time Last Medication Dose Route Stop Time Status Admin Acetaminophen 650 MG Q4P PRN 08/06 1145 AC PO Albuterol Sulfate 3 ML EVERY 4 HRS/AWAKE 08/06 1200 AC 08/06 INH 1100 Albuterol Sulfate 3 ML ONCE ONE 08/05 204 DC 08/05 INH 08/05 Albuterol Sulfate 3 ML ONCE ONE 08/05 204 DC 08/05 INH 08/05 Albuterol Sulfate 3 ML ONCE ONE 08/05 2045 DC 08/05 INH 08/05 Albuterol Sulfate 3 ML ONCE ONE 08/05 2044 DC 08/05 INH 08/05 Albuterol Sulfate 3 ML ONCE ONE 08/05 204 DC 08/05 INH 08/05 Albuterol Sulfate 3 ML ONCE ONE 08/05 2044 DC 08/05 INH 08/05 Albuterol Sulfate 3 ML ONCE ONE 08/05 2014 DC 08/05 INH 08/05 Azithromycin 500 MG DAILY 08/06 0245 AC 08/06 Sodium Chloride 250 ML IV 0339 Ceftriaxone Sodium 1,000 MG DAILY 08/06 0245 AC 08/06 IV 0331 Clonazepam 0 .STK-MED ONE 08/06 0023 DC PO Clonazepam 0.5 MG BID 08/05 2341 AC 08/06 PO 08/12 2340 0025 Folic Acid 1 MG DAILY 08/06 1000 AC 08/06 PO 0945 Heparin Sodium 5,000 UNIT Q8 08/06 0600 AC (Porcine) SC Hydroxychloroquine 200 MG BID 08/05 2359 DC 08/06 Sulfate PO 0025 Ipratropium [place] 2.5 ML ONCE ONE 08/05 2014 DC 08/05 INH 08/05 Lamotrigine 200 MG DAILY 08/06 1000 AC 08/06 PO 0945 Leflunomide 20 MG BID 08/06 1000 DC PO Leflunomide 20 MG DAILY 08/06 1000 CAN PO Levothyroxine Sodium 0.05 MG DAILY AC 08/06 0700 AC 08/06 PO 0649 Magnesium Sulfate 1 GM Q2H 08/05 2245 DC 08/05 Dextrose/Water 100 ML IV 08/07 0244 2301 Methylprednisolone 40 MG Q12 08/06 2200 AC IV Methylprednisolone 40 MG Q8 08/06 0600 DC 08/06 IV 0638 Methylprednisolone 0 .STK-MED ONE 08/05 2018 DC .ROUTE Methylprednisolone 125 MG ONCE ONE 08/05 2014 DC 08/05 IV 08/05 Non-Formulary 0 SEE ADMIN CRITERIA 08/06 0915 CAN Medication ANY Omeprazole 40 MG DAILY AC 08/06 0700 AC 08/06 PO 0649 Oxycodone HCl 7.5 MG Q12 08/06 1000 AC 08/06 PO 0946 Oxycodone/ 1 TAB Q12P PRN 08/05 2345 DC 08/06 Acetaminophen PO 0306 Potassium Chloride 0 .STK-MED ONE 08/06 0023 DC PO Potassium Chloride 60 MEQ ONCE ONE 08/05 2345 DC 08/06 PO 08/05 2346 0025 Sulfasalazine 500 MG BID 08/05 2359 DC 08/06 PO 0025 Venlafaxine HCl 225 MG 0800 08/06 0800 AC 08/06 PO 0945 Zolpidem Tartrate 5 MG QPM 08/06 2200 AC PO Review of Systems Comments 18 point review of systems performed. Pertinent positive and negative findings are in the HPI, otherwise negative. 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 Home Smoking Status: Never Smoked Exam & Diagnostic Data Last 24 Hrs of Vital Signs/I&O Vital Signs Date Time Temp Pulse Resp B/P Pulse O2 O2 Flow FiO2 Ox Delivery Rate 08/06 1103 96 Room Air 08/06 1011 Nasal Cannula 08/06 0800 Room Air 08/06 0600 97.4 83 24 137/73 95 Nasal 2.0L Cannula 08/06 0212 98.0 102 28 140/70 95 Nasal 2.0L Cannula 08/06 0118 Nasal 2.0L Cannula 08/06 0027 97.3 97 20 136/72 95 Nasal 2.0L Cannula 08/05 2302 97.3 103 20 131/60 95 Nasal 2.0L Cannula 08/059 97 Nasal 2.0L Cannula 08/06 2023 100 Nasal 3.0L Cannula 08/05 2021 94 Room Air 08/05 1956 97.1 91 28 142/89 93 Room Air Intake & Output 08/06 1600 08/06 0800 08/06 0000 Intake Total 1180 0 Output Total 500 Balance 680 0 Intake, IV 380 Intake, Oral 800 0 Output, Urine 500 Patient 168 lb 160 lb Weight Physical Exam Other Physical Findings: Gen - alert and awake HEENT - NCAT CVS - S1, S2, no murmurs, rubs or gallops Lungs - bilateral inspiratory and expiratory wheezing Abdomen - soft, non-tender, bs+ Ext - no edema, no cyanosis Last 48 Hrs of Labs/Shreyas: Laboratory Tests 08/06/16 0715: Anion Gap 14, Estimated GFR > 60, BUN/Creatinine Ratio 18.0, CBC w Diff NO MAN DIFF REQ, RBC 4.61, MCV 76.2 L, MCH 25.5 L, RDW 17.5 H, MPV 7.7, Gran % 90.6 H, Lymphocytes % 5.7 L, Monocytes % 3.6, Eosinophils % 0, Basophils % 0.1, Absolute Granulocytes 5.8, Absolute Lymphocytes 0.4 L, Absolute Monocytes 0.2, Absolute Eosinophils 0, Absolute Basophils 0, PUBS MCHC 33.4 08/06/16 0253: Urine Opiates Screen 105.00, Methadone Screen > 735 H, Barbiturate Screen < 60, Ur Phencyclidine Scrn 10.40, Amphetamines Screen < 100, U Benzodiazepines Scrn < 85, Urine Cocaine Screen < 50, Urine Cannabis Screen < 5.00, Urine Color YEL, Urine Clarity HAZY H, Urine pH 6.0, Ur Specific [place] <= 1.005, Urine Protein NEG, Urine Ketones NEG, Urine Nitrite NEG, Urine Bilirubin NEG, Urine Urobilinogen 0.2, Ur Leukocyte Esterase NEG, Ur Microscopic SEDIMENT EXAMINED, Urine RBC 25-50 H, Urine WBC 1-3 H, Ur Epithelial Cells FEW, Urine Crystals 1+ HIPPURATE, Urine Bacteria FEW H, Urine Hemoglobin LARGE H, Urine Glucose 250 H 08/05/16 2019: Anion Gap 12, Estimated GFR > 60, BUN/Creatinine Ratio 13.3, Glucose 109 H, Calcium 8.9, Magnesium 1.9, Total Bilirubin 0.4, AST 24, ALT 28, Alkaline Phosphatase 94, Troponin I < 0.01, Total Protein 7.3, Albumin 3.4 L, Globulin 3.9, Albumin/Globulin Ratio 0.9 L, TSH 5.420 H, Free T4 1.17, Total Beta HCG NEGATIVE, CBC w Diff NO MAN DIFF REQ, RBC 5.14, MCV 76.9 L, MCH 24.7 L, RDW 17.4 H, MPV 7.2 L, Gran % 49.2, Lymphocytes % 30.0, Monocytes % 10.5 H, Eosinophils % 9.6 H, Basophils % 0.7, Absolute Granulocytes 4.7, Absolute Lymphocytes 2.9, Absolute Monocytes 1.0 H, Absolute Eosinophils 0.9, Absolute Basophils 0.1, PUBS MCHC 32.1 L Microbiology 08/06 309 NASOPHARYN: Influenza Virus A & B Rapid Smear - COMP 08/06 252 URINE ROUT: Legionella Antigen - COMP 08/06 252 URINE ROUT: Streptococcus pneumoniae Antigen (M - COMP Assessment/Plan Impression/Plan: Impression 41 year old woman * acute exacerbation of asthma secondary to a community acquired right middle lobe pneumonia with acute hypoxemic respiratory failure on admission requiring oxygen, now improved Plan - cont ceftriaxone, zithromax - sputum cx for c&s - negative legionella, negative influenza, negative strep ag - reduce solumedrol to 40mg iv q12h - peak flow q shift - steroid reduction should be coordinated with sand mill operator core sand - to ensure to get back to baseline dose - will need f/u imaging and pfts as outpt DVT prophylaxis at all times Consult Acknowledgment - Thank you for your consult request.
[2016-08-06 14:25] VITALS: BP 150/71
[2016-08-06 22:23] VITALS: BP 100/68
[2016-08-07 06:41] VITALS: BP 118/76
--- NOTE | 2016-08-07 06:55 | PN- Housestaff ---
IAIN BOSS 08/07/16 0655: Subjective Follow-up For: Asthma exacerbation Subjective: Seen and examined patient this morning. Lying comfortably in bed. Says that her breathing is improved, she still mildly short of breath on ambulation. Denies chest pain, palpitations. Review of Systems Constitutional: Denies: chills, diaphoresis, fever, malaise, weakness, unexplained weight loss. Cardiovascular: Denies: chest pain, edema, orthopena, palpitations, peripheral edema, syncope. Respiratory: Denies: cough, hemoptysis, orthopnea, short of breath, sputum production, stridor, wheezing. Objective Last 24 Hrs of Vital Signs/I&O Vital Signs Date Time Temp Pulse Resp B/P Pulse O2 O2 Flow FiO2 Ox Delivery Rate 08/07 0641 97.9 71 18 118/76 97 Room Air 08/07 0000 Room Air 08/06 2223 98.0 71 20 100/68 94 Room Air 08/06 1705 94 Room Air 08/06 1600 Room Air 08/06 1425 97.9 68 20 150/71 98 Room Air 08/06 1103 96 Nasal 2.0L Cannula 08/06 1011 Nasal Cannula Intake & Output 08/07 1600 08/07 0800 08/07 0000 Intake Total 120 240 Output Total Balance 120 240 Intake, Oral 120 240 Physical Exam General Appearance: Alert, Oriented X3, Cooperative, No Acute Distress Cardiovascular: Regular Rate, Normal S1, Normal S2 Lungs: Clear to Auscultation, b/l scattered wheezes Abdomen: Normal Bowel Sounds, Soft Extremities: No Edema Current Medications: Current Medications Sig/Carlos Start time Last Medication Dose Route Stop Time Status Admin Acetaminophen 650 MG Q4P PRN 08/06 1145 AC 08/06 PO 1830 Albuterol Sulfate 3 ML EVERY 4 HRS/AWAKE 08/06 1200 AC 08/06 INH 2120 Azithromycin 500 MG DAILY 08/06 0245 AC 08/06 Sodium Chloride 250 ML IV 0339 Ceftriaxone Sodium 1,000 MG DAILY 08/06 0245 AC 08/06 IV 0331 Clonazepam 0.5 MG BID 08/05 2341 AC 08/06 PO 08/12 2340 2157 Folic Acid 1 MG DAILY 08/06 1000 AC 08/06 PO 0945 Heparin Sodium 5,000 UNIT Q8 08/06 0600 AC (Porcine) SC Lamotrigine 200 MG DAILY 08/06 1000 AC 08/06 PO 0945 Leflunomide 20 MG BID 08/06 1000 DC PO Levothyroxine Sodium 0.05 MG DAILY AC 08/06 0700 AC 08/07 PO 0610 Methylprednisolone 40 MG Q12 08/06 2200 AC 08/06 IV 2150 Methylprednisolone 40 MG Q8 08/06 0600 DC 08/06 IV 0638 Non-Formulary 0 SEE ADMIN CRITERIA 08/06 0915 CAN Medication ANY Omeprazole 40 MG DAILY AC 08/06 0700 AC 08/06 PO 0649 Oxycodone HCl 7.5 MG Q12 08/06 1000 AC 08/06 PO 2149 Oxycodone/ 1 TAB Q12P PRN 08/05 2345 DC 08/06 Acetaminophen PO 0306 Patient Medication 1 ED .STK-MED ONE 08/06 1322 DC Teaching ED 08/06 1323 Venlafaxine HCl 225 MG 0800 08/06 0800 AC 08/06 PO 0945 Zolpidem Tartrate 5 MG QPM 08/06 2200 AC 08/06 PO 2149 Assessment/Plan Assessment: 41 -year-old woman nonsmoker with past medical history significant for asthma diagnosed in childhood (last exacerbation 5 years ago), RA (on prednisone and disease modifying drugs), hypothyroidism, anxiety, depression, current admission for dyspnea, low O2 sats (90's) on RA. CTA chest ruled out PE, positive for focal consolidative disease within the medial segment of the middle lobe that is most consistent with pneumonia. Improved this morning, saturating well on room air Problem list Asthma exacerbation Pneumonia Hypothyroidism Rheumatoid arthritis Anxiety and depression. Plan: Patient has PCP at [facility] who prescribes her thyroid medication, she goes to [facility] where her Lamictal Effexor Klonopin and Ambien prescribed. We spoke to her flooring sales manager office, [facility] pharmacy as well as [facility] pharmacy to confirm her medications. There is some concern regarding compliance regarding follow-up visits as well as medications. Decrease IV Solu-Medrol to 40 every 12, start by mouth prednisone tomorrow Pulmonary on board appreciate recommendations Daily peak flow 210--> 250 today Continue IV ceftriaxone/IV azithromycin day 2, afebrile overnight continue home meds of leflunomide, Lamictal, Synthyroid, Effexor, Prilosec, Ambien Regular diet DVT prophylaxis: sc heparin Patient is a full code Problem List: 1. Hypothyroid 2. Anxiety 3. Asthma exacerbation Pain Ratin Pain Location: na Pain Goal: Pain 4 or less Pain Plan: Current regimen Tomorrow's Labs & Rationales: CBC BARBARA DUKE [email or web address] 08/07/16 1047: Attending MD Review Statement Attending Statement Attending MD Statement: examined this patient, discuss w/resident/PA/FORESTRY SUPERVISOR, agreed w/resident/PA/FORESTRY SUPERVISOR, discussed with family, reviewed EMR data (avail), discussed with nursing, discussed with case mgmt, amended to note Attending Assessment/Plan: Patient seen and examined. Resting comfortably and not in acute distress today. She is conversing more comfortably today. She reports feeling better. She is actually eager to leave the hospital immediately. Her peak flow rate has improved from 150 yesterday to 250 today. However she continues to have significant wheezing bilaterally. Clarifying her home medication list has been a challenge. Patient states that she does not know which medications she is taking at home. Her medication list was obtained from her rheumatology service. However it appears that patient is no longer taking a number of the medications on that list after discussion with the to pharmacist that she utilizes. Her heart TSH levels are high suggests seen poorly controlled hypothyroidism. From her pharmacy's report it appears she is 2 months overdue from filling her Synthroid. Her urine drug screen was positive for methadone Recommendations: -Recommend continue bronchodilator and steroid therapy in the hospital in order to avoid acute decompensation from premature discharge. -Taper steroid therapy as recommended by the pulmonology service. -Clarify her home medication list indicating the medications she is no longer on. Please forward a completed his to her rheumatology service and primary care provider. 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 -No need for repeat CBC or chemistry tomorrow.
--- NOTE | 2016-08-07 10:42 | Patient Discharge Instructions ---
Discharge Instructions General Discharge Information You were seen/treated for: Asthma exacerbation Special Instructions: please follow up with your pcp with two weeks discharge please follow up with your Derrick Boat Lever Operator with two weeks of discharge please follow up at [facility] Acute Coronary Syndrome Inclusion Criteria At DC or during hospital stay patient has or had the following: ACS DIAGNOSIS No Discharge Core Measures Meds if any: Prescribed or Continued at Discharge Meds if any: NOT Prescribed or Continued at Discharge Congestive Heart Failure Inclusion Criteria At DC or during hospital stay patient has or had the following: CHF DIAGNOSIS No Discharge Core Measures Meds if any: Prescribed or Continued at Discharge Meds if any: NOT Prescribed or Continued at Discharge Cerebrovascular accident Inclusion Criteria At DC or during hospital stay patient has or had the following: CVA/TIA Diagnosis No Discharge Core Measures Meds if any: Prescribed or Continued at Discharge Meds if any: NOT Prescribed or Continued at Discharge Venous thromboembolism Inclusion Criteria VTE Diagnosis No VTE Type NONE VTE Confirmed by (Test) NONE Discharge Core Measures - Per Current guidelines, there needs to be overlap - treatment for the first 5 days of Warfarin therapy. - If discharged on Warfarin prior to 5 days of - overlap therapy, the patient will need to be - assessed for post discharge needs including - *Post discharge parental anticoagulation - *Warfarin and/or parental anticoagulation education - *Follow up date to check INR post discharge At least 5 days overlap therapy as Inpatient No Meds if any: Prescribed or Continued at Discharge Note: Overlap Therapy is Warfarin and Anticoagulant Meds if any: NOT Prescribed or Continued at Discharge
--- NOTE | 2016-08-07 12:55 | PN- Pulmonary ---
Subjective HPI/Critical Care Issues: Patient seen and examined this morning. She appears to be be doing better however she is still wheezing on inspiration and expiration. Patient also has a peak flow that is improved from as low as 120 to 250 today. Objective Current Medications: Current Medications Sig/Carlos Start time Last Medication Dose Route Stop Time Status Admin Acetaminophen 650 MG Q4P PRN 08/06 1145 AC 08/06 PO 1830 Albuterol Sulfate 3 ML EVERY 4 HRS/AWAKE 08/06 1200 AC 08/07 INH 0924 Azithromycin 500 MG DAILY 08/06 0245 AC 08/06 Sodium Chloride 250 ML IV 0339 Ceftriaxone Sodium 1,000 MG DAILY 08/06 0245 AC 08/07 IV 1109 Clonazepam 0.5 MG BID 08/05 2341 AC 08/07 PO 08/12 2340 1108 Folic Acid 1 MG DAILY 08/06 1000 AC 08/07 PO 1108 Heparin Sodium 5,000 UNIT Q8 08/06 0600 AC (Porcine) SC Lamotrigine 200 MG DAILY 08/06 1000 AC 08/07 PO 1108 Levothyroxine Sodium 0.05 MG DAILY AC 08/06 0700 AC 08/07 PO 0610 Methylprednisolone 40 MG Q12 08/06 2200 AC 08/07 IV 1108 Omeprazole 40 MG DAILY AC 08/06 0700 AC 08/06 PO 0649 Oxycodone HCl 7.5 MG Q12 08/06 1000 AC 08/07 PO 1108 Patient Medication 1 ED .STK-MED ONE 08/06 1322 [place] Teaching ED 08/06 1323 Venlafaxine HCl 225 MG 0800 08/06 0800 AC 08/07 PO 1108 Zolpidem Tartrate 5 MG QPM 08/06 2200 AC 08/06 PO 2149 Vital Signs & I&O Last 24 Hrs of Vitals and I&O: Vital Signs Date Time Temp Pulse Resp B/P Pulse O2 O2 Flow FiO2 Ox Delivery Rate 08/07 0932 98 Room Air 08/07 0800 96 Room Air 08/07 0641 97.9 71 18 118/76 97 Room Air 08/07 0000 Room Air 08/06 2223 98.0 71 20 100/68 94 Room Air 08/06 1705 94 Room Air 08/06 1600 Room Air 08/06 1425 97.9 68 20 150/71 98 Room Air Intake & Output 08/07 1600 04/18 0800 04/18 0000 Intake Total 120 240 Output Total Balance 120 240 Intake, Oral 120 240 Exam Other Physical Findings: Gen - alert and awake HEENT - NCAT CVS - S1, S2, no murmurs, rubs or gallops Lungs - bilateral inspiratory and expiratory wheezing Abdomen - soft, non-tender, bs+ Ext - no edema, no cyanosis Impression/Plan Impression/Plan Impression/Plan: Impression 41 year old woman * acute exacerbation of asthma secondary to a community acquired right middle lobe pneumonia with acute hypoxemic respiratory failure on admission requiring oxygen, now improved Plan - cont ceftriaxone, zithromax - can switch over to PO in am - negative legionella, negative influenza, negative strep ag - prednisone 60x3, 50x3, 40x3, 20x3, 10mg and then defer to patient's transcript evaluator for further prednisone dosing - peak flow q shift - will need f/u imaging and pfts as outpt DVT prophylaxis at all times
[2016-08-07 14:42] VITALS: BP 138/76
[2016-08-07] MEDS ORDERED: PREDNISONE10 M2 PO ×2 (15:05)
[2016-08-07 22:04] VITALS: BP 140/92
[2016-08-08 07:31] VITALS: BP 157/105
[2016-08-08 07:41] VITALS: BP 150/88
[2016-08-08 07:55] LABS: ABSOLUTE BASOPHIL COUNT 0 /CUMM (0.0-0.2); ABSOLUTE EOSINOPHIL COUNT 0 /CUMM (0.0-0.7); ABSOLUTE LYMPH COUNT 1.1 /CUMM (1.2-3.4); ABSOLUTE MONOCYTE COUNT 0.5 /CUMM (0.10-0.60); BASOPHIL % 0.2 % (0.0-2.0); EOSINOPHIL % 0 % (0-5)
[2016-08-08] MEDS ORDERED: AUGMENTIN 500-1 EACH PO (08:11)
[2016-08-08 08:21] LABS: HEMATOCRIT 38.4 % (37-47); MEAN CORPUSCULAR HGB 24.8 PG (27.0-31.0); MEAN CORPUSCULAR HGB CONC 31.9 G/DL (33.0-37.0); MEAN CORPUSCULAR VOLUME 77.7 FL (81.0-99.0); MEAN PLATELET VOLUME 7.9 FL (7.4-10.4); PLATELET COUNT 353 /CUMM (130-400); RBC DISTRIBUTION WIDTH 18.6 % (11.5-14.5); RED BLOOD CELL CT 4.94 /CUMM (4.20-5.40)
--- NOTE | 2016-08-08 08:26 | PN- Housestaff ---
IAIN BOSS 08/08/16 0826: Subjective Follow-up For: Asthma exacerbation Subjective: Seen and examined patient. Complaining of left side back pain, associated with pleuritic chest pain. Denies fevers, chills, chest pain, shortness of breath. Review of Systems Constitutional: Denies: chills, diaphoresis, fever, malaise, weakness, unexplained weight loss. Cardiovascular: Denies: chest pain, edema, orthopena, palpitations, peripheral edema, syncope. Respiratory: Denies: cough, hemoptysis, orthopnea, short of breath, sputum production, stridor, wheezing. Objective Last 24 Hrs of Vital Signs/I&O Vital Signs Date Time Temp Pulse Resp B/P B/P Pulse O2 O2 Flow FiO2 Mean Ox Delivery Rate 08/08 1412 97.6 70 18 144/84 97 Room Air 08/08 0821 99 Room Air Room Air 08/08 0800 95 Room Air 08/08 0741 150/88 08/08 0731 97.8 78 20 97 08/08 0136 98 Room Air 08/08 0000 Room Air 08/07 2204 98.6 86 20 140/92 98 08/07 1645 96 Room Air Intake & Output 08/08 1600 08/08 0800 08/08 0000 Intake Total 1150 840 Output Total 150 Balance 1150 690 Intake, IV 250 Intake, Oral 900 840 Number 1 Bowel Movements Output, Urine 150 Physical Exam General Appearance: Alert, Oriented X3, Cooperative, No Acute Distress Cardiovascular: Regular Rate, Normal S1, Normal S2 Lungs: Normal Air Movement, scattered expiratory wheezes Current Medications: Current Medications Sig/Carlos Start time Last Medication Dose Route Stop Time Status Admin Acetaminophen 650 MG Q4P PRN 08/06 1145 DCD 08/06 PO 1830 Albuterol Sulfate 3 ML EVERY 4 HRS/AWAKE 08/06 1200 DCD 08/08 INH 1202 Azithromycin 500 MG DAILY 08/06 0245 DCD 08/08 Sodium Chloride 250 ML IV 0910 Ceftriaxone Sodium 1,000 MG DAILY 08/06 0245 DCD 08/08 IV 0910 Clonazepam 0.5 MG BID 08/05 2341 DCD 08/08 PO 08/12 2340 0911 Folic Acid 1 MG DAILY 08/06 1000 DCD 08/08 PO 0911 Heparin Sodium 5,000 UNIT Q8 08/06 0600 DCD (Porcine) SC Lamotrigine 200 MG DAILY 08/06 1000 DCD 08/08 PO 0911 Levothyroxine Sodium 0.05 MG DAILY AC 08/06 0700 DCD 08/08 PO 0615 Methadone HCl 95 MG DAILY 08/08 1201 DCD 08/08 PO 1251 Methylprednisolone 40 MG Q12 08/06 2200 DC 08/07 IV 08/08 0000 2150 Omeprazole 40 MG DAILY AC 08/06 0700 DCD 08/06 PO 0649 Oxycodone HCl 7.5 MG Q12 08/06 1000 DCD 08/08 PO 0910 Patient Medication 1 ED .STK-MED ONE 08/08 1352 AL Teaching ED 08/08 1353 Prednisone 60 MG DAILY 08/08 1000 DCD 08/08 PO 0910 Venlafaxine HCl 225 MG 0800 08/06 0800 DCD 08/08 PO 0911 Zolpidem Tartrate 5 MG QPM 08/06 2200 DCD 08/07 PO 2150 Last 24 Hrs of Lab/Shreyas Results Last 24 Hrs of Labs/Mics: Laboratory Tests 08/08/16 0615: CBC w Diff NO MAN DIFF REQ, RBC 4.94, MCV 77.7 L, MCH 24.8 L, RDW 18.6 H, MPV 7.9, Gran % 84.6 H, Lymphocytes % 10.3 L, Monocytes % 4.9, Eosinophils % 0, Basophils % 0.2, Absolute Granulocytes 9.0 H, Absolute Lymphocytes 1.1 L, Absolute Monocytes 0.5, Absolute Eosinophils 0, Absolute Basophils 0, PUBS MCHC 31.9 L Assessment/Plan Assessment: 41 -year-old woman nonsmoker with past medical history significant for asthma diagnosed in childhood (last exacerbation 5 years ago), RA (on prednisone and disease modifying drugs), hypothyroidism, anxiety, depression, current admission for dyspnea, low O2 sats (90's) on RA. CTA chest ruled out PE, positive for focal consolidative disease within the medial segment of the middle lobe that is most consistent with pneumonia. Complaining of left upper back pain which is worse with breathing. Problem list Asthma exacerbation Pneumonia Hypothyroidism Rheumatoid arthritis Anxiety and depression. Plan: Repeat chest x-ray this morning was unremarkable On prednisone taper and then will be on maintenance prednisone dose of 10 mg daily. We'll be also discharged on albuterol inhaler. Was consulted counseled on the importance of following up with her regular doctors. Advised her to revise her med list with them to see which medication she should be on ,especially with regards to her rheumatoid arthritis. Pulmonary on board appreciate recommendations, will follow up with them as outpatient Daily peak flow 210--> 250-->250 today Will be discharged on by mouth Augmentin for a total of 7 days duration continue home meds of sulfasalazine leflunomide, Lamictal, Synthyroid, Effexor, Prilosec, Ambien Of note patient goes to the Methadone clinic and her current dose of methadone is 95 mL daily. Regular diet DVT prophylaxis: sc heparin Patient is a full code Medically stable for discharge today Problem List: 1. Asthma exacerbation 2. Hypothyroid 3. Anxiety Pain Ratin Pain Location: Not applicable Pain Goal: Pain 4 or less Pain Plan: Current regimen Tomorrow's Labs & Rationales: None required JANEE DUKE MD 08/08/16 1521: Attending MD Review Statement Attending Statement Attending MD Statement: examined this patient, discuss w/resident/PA/CHILDREN'S MINISTRY DIRECTOR, agreed w/resident/PA/CHILDREN'S MINISTRY DIRECTOR, discussed with family, reviewed EMR data (avail), discussed with nursing, discussed with case mgmt, amended to note Attending Assessment/Plan: Patient seen and examined. Alert and oriented 3. Not in acute distress. Denies shortness of breath at rest. She did complain of left chest wall pain posteriorly. Pain is reproducible and very tender to touch. She denies any trauma. Chest x-ray done to evaluate shows no acute pathology. Pain is likely musculoskeletal in nature due to her repeated coughing. Her urine drug screen was positive for methadone. When patient was asked about this she stated that she was ashamed to notify staff that she was on methadone. We confirm that she is on methadone from a methadone clinic. She was very hesitant to allow support this medication on her discharge medication list but she later conceded. She did not request methadone at all during this admission. We did administer a dose today after confirming that she was indeed on this medication. Her medication list has been cleaned up and we have advised her to notify her healthcare providers of the medications that she is truly taking. There was concern about diabetes due to her glucosuria. Her blood glucose levels have been within normal limits. Her hemoglobin A1c however is 5.1 ruling out diabetes. Recommendations: -Patient is medically stable to be discharged home today. -She is being discharged on a prednisone taper. -She is to follow-up with González Rowell MD as an outpatient. He will follow-up with repeat imaging of her chest to ensure resolution of abnormal findings noted on the CT scan. Chest x-ray today did not clearly delineate the infiltrate.
[2016-08-08 08:28] LABS: WHITE BLOOD CELL COUNT 10.6 /CUMM (4.8-10.8)
[2016-08-08 09:18] LABS: GRANULOCYTE % 84.6 % (42.2-75.2)
--- NOTE | 2016-08-08 10:53 | PN- Pulmonary ---
Subjective HPI/Critical Care Issues: pt seen and examined having some left sided back pain that is reproducible dyspnea improved still with some wheezing Objective Current Medications: Current Medications Sig/Carlos Start time Last Medication Dose Route Stop Time Status Admin Acetaminophen 650 MG Q4P PRN 08/06 1145 AC 08/06 PO 1830 Albuterol Sulfate 3 ML EVERY 4 HRS/AWAKE 08/06 1200 AC 08/08 INH 0819 Azithromycin 500 MG DAILY 08/06 0245 AC 08/08 Sodium Chloride 250 ML IV 0910 Ceftriaxone Sodium 1,000 MG DAILY 08/06 0245 AC 08/08 IV 0910 Clonazepam 0.5 MG BID 08/05 2341 AC 08/08 PO 08/12 2340 0911 Folic Acid 1 MG DAILY 08/06 1000 AC 08/08 PO 0911 Heparin Sodium 5,000 UNIT Q8 08/06 0600 AC (Porcine) SC Lamotrigine 200 MG DAILY 08/06 1000 AC 08/08 PO 0911 Levothyroxine Sodium 0.05 MG DAILY AC 08/06 0700 AC 08/08 PO 0615 Methylprednisolone 40 MG Q12 08/06 2200 DC 08/07 IV 08/08 0000 2150 Omeprazole 40 MG DAILY AC 08/06 0700 AC 08/06 PO 0649 Oxycodone HCl 7.5 MG Q12 08/06 1000 AC 08/08 PO 0910 Prednisone 60 MG DAILY 08/08 1000 AC 08/08 PO 0910 Venlafaxine HCl 225 MG 0800 08/06 0800 AC 08/08 PO 0911 Zolpidem Tartrate 5 MG QPM 08/06 2200 AC 08/07 PO 2150 Vital Signs & I&O Last 24 Hrs of Vitals and I&O: Vital Signs Date Time Temp Pulse Resp B/P B/P Pulse O2 O2 Flow FiO2 Mean Ox Delivery Rate 08/08 0821 99 Room Air Room Air 08/08 0800 95 Room Air 08/08 0741 150/88 08/08 0731 97.8 78 20 97 08/08 0136 98 Room Air 08/08 0000 Room Air 08/07 2204 98.6 86 20 140/92 98 08/07 1645 96 Room Air 08/07 1600 98 Room Air 08/07 1442 98.9 103 20 138/76 98 Intake & Output 08/08 1600 08/08 0800 08/08 0000 Intake Total 840 Output Total 150 Balance 690 Intake, Oral 840 Number 1 Bowel Movements Output, Urine 150 Exam Other Physical Findings: Gen - alert and awake HEENT - NCAT CVS - S1, S2, no murmurs, rubs or gallops Lungs - bilateral inspiratory and expiratory wheezing Abdomen - soft, non-tender, bs+ Ext - no edema, no cyanosis Results Last 24 Hrs of Lab Results: Laboratory Tests 08/08/16 0615: CBC w Diff NO MAN DIFF REQ, RBC 4.94, MCV 77.7 L, MCH 24.8 L, RDW 18.6 H, MPV 7.9, Gran % 84.6 H, Lymphocytes % 10.3 L, Monocytes % 4.9, Eosinophils % 0, Basophils % 0.2, Absolute Granulocytes 9.0 H, Absolute Lymphocytes 1.1 L, Absolute Monocytes 0.5, Absolute Eosinophils 0, Absolute Basophils 0, PUBS MCHC 31.9 L Impression/Plan Impression/Plan Impression/Plan: Impression 41 year old woman * acute exacerbation of asthma secondary to a community acquired right middle lobe pneumonia with acute hypoxemic respiratory failure on admission requiring oxygen, now improved Plan - course of abx - check cxr and rib series prior to discharge to ensure to pathology with back pain on left - negative legionella, negative influenza, negative strep ag - prednisone 60x3, 50x3, 40x3, 20x3, 10mg and then defer to patient's picker feeder for further prednisone dosing - peak flow q shift - will need f/u imaging and pfts as outpt DVT prophylaxis at all times
--- NOTE | 2016-08-08 10:55 | NUR ---
NURSING NOTE: PT LEFT FLOOR VIA STRETCHER WITH DISTRIBUTION FOR CXR PER MD ORDER, PT AWAKE, A/OX3, ROOM AIR, DENIES DISTRESS, IV ANTIBX INFUSING, TICKET TO RIDE COMPLETE, AWAIT RETURN TO FLOOR.
--- NOTE | 2016-08-08 11:44 | RADIOLOGY REPORT ---
EXAMINATION: XR CHEST CLINICAL INFORMATION: Left posterior rib pain. Cough. Asthma. COMPARISON: CT from 08/06/2016 TECHNIQUE: 2 views of the chest were obtained. FINDINGS: The lungs are well expanded. There is no focal consolidation, edema, or effusion. The right middle lobe opacity seen on prior CT is not well visualized on this study. No pneumothorax. The cardiomediastinal silhouette is within normal limits. No acute osseous abnormality. IMPRESSION: No acute pulmonary findings.
[2016-08-08] MEDS ORDERED: ALBUTEROL2.5 MG/3 M INH ×2 (13:46→14:01)
[2016-08-08] MEDS ORDERED: METHADONE PO (13:56)
[2016-08-08 14:12] VITALS: BP 144/84
--- NOTE | 2016-08-09 07:12 | Discharge Summary ---
Visit Information Visit Dates Admission Date: 08/05/16 Discharge Date: 08/08/16 Hospital Course Course Attending Physician: JANEE DUKE M.D Primary Care Physician: BETZY ABDUL,[facility] Course: 41 year old woman non smoker with pmh of childhood asthma,last asthma exacerbation was 5-6 yrs ago, RA (on chronic prednisone), hypothyroidism ( noncompliant with medication),anxiety, depression, admitted to [facility] for worsening dyspnea on exertion of three days duration. She stated that she ran out of her albuterol inhaler. Vitals: afebrile, tachycardic to 90-100's, BP 136/72 Labs On Arrival she was saturating low 90s on room air, In ER she received solumedrol , mag sulf and multiple doses of albuterol, after which ambulatory sats were checked and found to be saturating 85% on RA. Labs significant for: WBC 9.6, eosinophils 9.6, trop neg, TSH 5.420, free T4 1.117. CXR: no airspace consolidation. EKG: SR, Qtc She was admitted to the General Medicine floor and the following issues were addressed: Asthma exacerbation Intially started on IV steroids and then transitioned to PO prednisone taper. Clinical improvement was monitored with daily peak flow. Once her taper is finished she is to be on maintenance prednisone dose of 10 mg daily for her RA. She was also discharged on albuterol inhaler. Pulmonary was consulted and will follow up with them as outpatient. Pneumonia CTA chest ruled out PE however was significant for focal consolidative disease within the medial segment of the middle lobe most consistent with pneumonia. IV ceftriaxone/IV azithromycin was started and then transitioned to Augmentin for a total of 7 days duration. Hypothyroidism Synthyroid was continued Rheumatoid arthritis When we reached out to her [employer] office we were told that she does not follow up regularly with them and noncompliance was an issue. Her Medications were verified and confirmed with the patient as to what she was taking. She was counseled on the importance of following up with her regular doctors. Advised her to revise her med list wtih her [employer]. Continued home meds of sulfasalazine leflunomide, Lamictal. Anxiety/depression/substance abuse Home meds of Effexor, Prilosec, Ambien. Her dose of methadone was confirmed and continued while in the hospital. Her current dose of methadone is 95 mL daily. Complications: none Allergies: Coded Allergies: cat dander (UNKNOWN 08/31/15) Significant Procedures: SERVICE DATE: 08/05/16 EXAM TYPE: CAT - CTA CHEST-PULMONARY EMBOLISM FINDINGS: The timing of the contrast bolus injection provides adequate opacification of the pulmonary arterial vasculature. There is however some degradation of image quality due to patient motion. No central luminal filling defect is visualized to suggest the presence of a acute pulmonary embolism. There is focal consolidative disease within the medial segment of the middle lobe that is most consistent with pneumonia. Otherwise no worrisome pulmonary nodule. There is no pleural effusion. No pneumothorax. The trachea and major airways are patent. The heart is normal in size. There is no pericardial effusion. The thoracic aortic arch is normal. Origins of the major aortic branches are widely patent. Limited visualization of the thoracic outlet including the thyroid gland are unremarkable. IMPRESSION: Consolidative disease within the medial segment of the middle lobe is most consistent with pneumonia. There is no evidence of acute pulmonary embolism. VTE: Negative. SERVICE DATE: 08/08/16 EXAM TYPE: RAD - XRY-CHEST XRAY, PA AND LATERAL EXAMINATION: FINDINGS: The lungs are well expanded. There is no focal consolidation, edema, or effusion. The right middle lobe opacity seen on prior CT is not well visualized on this study. No pneumothorax. The cardiomediastinal silhouette is within normal limits. No acute osseous abnormality. IMPRESSION: No acute pulmonary findings. Disposition Summary Disposition Principal Diagnosis: Asthma exacerbation Additional Diagnosis: Pneumonia Hypothyroidism Rheumatoid arthritis Anxiety and depression. Discharge Disposition: home or self care Discharge Instructions General Discharge Information Code Status: Full Code Patient's Diet: Regular diet Patient's Activity: full activity Follow-Up Instructions/Appts: follow up with your pcp with two weeks discharge follow up with your [employer] with two weeks of discharge follow up at [facility] [place] Medications at Discharge Discharge Medications: Stop taking the following medications: Oxycodone HCl/Acetaminophen (Percocet 7.5-325 MG Tablet) 7.5 MG-325 MG TABLET ORAL TWICE DAILY as needed for PAIN Qty = 60 Prednisone (Prednisone) 2.5 MG TABLET ORAL TWICE DAILY Qty = 240 Folic Acid (Folic Acid) 1 MG TABLET ORAL DAILY Qty = 30 Continue taking these medications: Clonazepam (Clonazepam) 0.5 MG TABLET 1 Tablet ORAL TWICE DAILY Qty = 7 Comments: Last Taken:08/08/16 Time: 0900AM Zolpidem Tartrate (Zolpidem Tartrate) 5 MG TABLET 1 Tablet ORAL Every night Qty = 30 Comments: NOT GIVEN Ranitidine (Ranitidine HCl) 150 MG TABLET 1 Tablet ORAL as needed for GI Qty = 30 Comments: NOT GIVEN Lamotrigine (Lamotrigine) 200 MG TABLET 1 Tablet ORAL DAILY Qty = 5 Comments: Last Taken: 08/08/16 Time:0900AM Venlafaxine HCl (Venlafaxine HCl ER) 225 MG TAB.ER.24 225 Milligram ORAL DAILY Qty = 30 Comments: Last Taken: 08/08/16 Time: 0900AM Adalimumab (Humira) 40 MG/0.8 ML SYRINGEKIT 40 Milligram Inject into fatty tissue EVERY 2 WEEKS Qty = 2 Comments: NOT GIVEN IN HOSPITAL Hydroxychloroquine Sulfate (Hydroxychloroquine Sulfate) 200 MG TABLET 1 Tablet ORAL TWICE DAILY Qty = 60 Comments: NOT GIVEN Leflunomide (Arava) 20 MG TABLET 1 Tablet ORAL TWICE DAILY Qty = 30 Comments: NOT GIVEN Levothyroxine Sodium (Levothyroxine Sodium) 50 MCG TABLET 1 Tablet ORAL DAILY Qty = 30 Comments: Last Taken: 08/08/16 Time: 0600AM Sulfasalazine (Sulfasalazine) 500 MG TABLET 1 Tablet ORAL TWICE DAILY Qty = 60 Comments: NOT GIVEN Methadone HCl (Methadone Intensol) 10 MG/ML ORAL.CONC 9.5 Milliliters ORAL DAILY Days = 30 Comments: Last Taken:08/08/16 Time: 1200pm Start taking the following new medications: Albuterol Sulfate (Albuterol Sulfate) 2.5 MG/3 ML (0.083 %) VIAL.NEB 3 Milliliters Inhale through mouth EVERY SIX HOURS as needed for ASTHMA CONTROL Qty = 1 No Refills Instructions: TAKE 4X DAY DAILY FOR ONE WEEK AND THEN USE NECESSARY Comments: Last Taken: 08/08/16 Time: 1200pm Prednisone (Prednisone) 10 MG TABLET 10 Milligram ORAL See Instructions Qty = 20 No Refills Instructions: On Take 08/08-08/10 6 TAB 08/11-08/13 5 TAB 08/14-08/16 4 TAB 08/17-08/19 3 TAB 08/20-08/22 2 TAB Comments: Last Taken: 08/08/16 60MG GIVEN Time: 0900AM Prednisone (Prednisone) 10 MG TABLET 1 Tablet ORAL DAILY Qty = 10 No Refills Instructions: take after your prednisone taper is done from Aug 22 2016 Comments: NOT GIVEN Augmentin (Augmentin 500-125 Tablet) 500 MG-125 MG TABLET 1 Tablet ORAL TWICE DAILY Days = 4 No Refills Comments: NOT GIVEN Copies To: BETZY ABDUL,GREGORY Attending MD Review Statement Documenting Attending: JANEE DUKE M.D Other Findings: I have reviewed the discharge summary.
== END 2016-08-08 15:21 | DRG 139 ==
LOC: ENRESERVDT → ENRESERVTM → ERH 19:50 → ERHI 23:14 → 2NB 23:14 → ENPENDDIS 08-08 14:33 → 2NB 08-08 15:21
PROVIDERS: Internal Medicine; Physician Assistant Medical; ADMIT Student in an Organized Health Care Education/Training Program
DX: J18.9 Pneumonia, unspecified organism (principal); J96.01 Acute respiratory failure with hypoxia; J45.901 Unspecified asthma with (acute) exacerbation; M06.9 Rheumatoid arthritis, unspecified; E03.9 Hypothyroidism, unspecified; F41.8 Other specified anxiety disorders
CPT/HCPCS: 2NBSP; ERO; 36415; 80307; 81001; 82436; 87040; 87070; 87449; 87450; 87804; 87804-59; 93005; 93010; 94644; 96374; 96375; J0456; J0696; J1644; J2920; J2930; J3490; J7040

== ENCOUNTER 2016-08-24 14:04 | Inpatient (IN) | payer OTHER ==
[~2016-08-24] VITALS: Ht 160 cm; Wt 74.8 kg
[~2016-08-24 14:04] MED LIST changes: +ALBUTEROL2.5 MG/3 M INH; +ARAVA20 M1 PO; +AUGMENTIN 500-1 EACH PO; +CLONAZEPAM0.5 M2 PO; +FOLIC ACID1 M1 PO; +HUMIRA40 MG/0.1 SC; +HYDROXYCHLOROQ200 M2 PO; +LAMOTRIGINE200 M2 PO; +LEVOTHYROXINE50 MCG PO; +METHADONE PO; +PERCOCET 7.5-31 EACH PO; +PREDNISONE10 M2 PO; +PREDNISONE2.5 M1 PO; +RANITIDINE HCL150 MG PO; +SULFASALAZINE500 M2 PO; +VENLAFAXINE HC225 MG PO; +ZOLPIDEM TARTRAT5 M1 PO
--- NOTE | 2016-08-24 14:11 | NUR ---
PT STATES THAT SHE WAS ADMITTED TO HOSPITAL ABOUT 1.5 WEEKS AGO WITH PNA, DISCHARGED ON ABT AND PREDNISONE STATES THAT SHE STILL DOES NOT FEEL BETTER. O2 SAT 95% ON RA WHILE SPEAKING, DENIES COUGH
[2016-08-24] MEDS ORDERED: PREDNISONE5 M1 PO (15:00)
--- NOTE | 2016-08-24 15:03 | NUR ---
APPRECIATE TRIAGE NOTE. PT AMBULATORY TO ROOM 19 WITH STEADY GAIT. SOULEYMANE MORA PT.
--- NOTE | 2016-08-24 15:25 | NUR ---
PT QUESTIONING WHY BLOODWORK IS BEING ORDERED. WAIT FOR PROVIDER EVAL.
--- NOTE | 2016-08-24 15:30 | ED DYSPNEA/ASTHMA COMPLAINT ---
History of Present Illness General Chief Complaint: Upper Respiratory Sx/Fever Stated Complaint: NO RELIEF OF PNA SYMPTOMS Source: patient, old records Exam Limitations: no limitations Vital Signs & Intake/Output Vital Signs & Intake/Output Vital Signs Date Time Temp Pulse Resp B/P B/P Pulse O2 O2 Flow FiO2 Mean Ox Delivery Rate 08/24 2222 97.7 76 20 120/70 96 Room Air 08/24 2205 93 Room Air 08/24 2138 98.0 78 18 118/68 93 Room Air Room Air 08/24 1741 98.1 85 20 121/74 93 Room Air Room Air 08/24 1636 97.1 74 18 113/67 98 Aerosol Mask 08/24 1625 97 08/24 1553 98 08/24 1545 Room Air Room Air 08/24 1408 97.1 86 18 137/80 95 Room Air Allergies Coded Allergies: cat dander (UNKNOWN 08/31/15) Triage Note: PT STATES THAT SHE WAS ADMITTED TO HOSPITAL ABOUT 1.5 WEEKS AGO WITH PNA, DISCHARGED ON ABT AND PREDNISONE STATES THAT SHE STILL DOES NOT FEEL BETTER. O2 SAT 95% ON RA WHILE SPEAKING, DENIES COUGH Triage Nurses Notes Reviewed? yes Onset: Abrupt Duration: constant Timing: recent history Severity: moderate : No Patient currently breastfeeds: No HPI: Patient is a 41-year-old female with past medical history of childhood asthma, rheumatoid arthritis on 5 mg of chronic prednisone, hypothyroidism, anxiety, depression who per old records was admitted to [facility] on August 05 and discharged on the for concerns of asthma exacerbation and significant focal consolidation of pneumonia noted to the middle lobe. Patient received IV antibiotics for 3 days and was discharged home with Augmentin which patient was compliant with. Patient also is compliant with her home medications of prednisone however she states the last 3 days symptoms of wheezing shortness of breath and chills have worsened. Patient does not smoke. Denies any hemoptysis leg swelling abdominal pain and chest pain arm pain and jaw pain nausea vomiting. Patient has not followed up with Dr. Rowell as she was advised patient has taken multiple doses of inhaler with no relief of symptoms. (TYESHA COMER,CATRACHO) Reconcile Medications Adalimumab (Humira) 40 MG/0.8 ML SYRINGEKIT 40 MG SC Q2W RA (Reported) Albuterol Sulfate 2.5 MG/3 ML (0.083 %) VIAL.NEB 3 ML INH Q6 PRN ASTHMA CONTROL TAKE 4X DAY DAILY FOR ONE WEEK AND THEN USE NECESSARY Clonazepam 0.5 MG TABLET 1 TAB PO BID ANXIETY (Reported) Hydroxychloroquine Sulfate 200 MG TABLET 1 TAB PO BID RA (Reported) Lamotrigine 200 MG TABLET 1 TAB PO DAILY MENTAL HEALTH (Reported) Leflunomide (Arava) 20 MG TABLET 1 TAB PO BID RA (Reported) Levothyroxine Sodium 50 MCG TABLET 1 TAB PO DAILY THYROID (Reported) Methadone HCl (Methadone Intensol) 10 MG/ML ORAL.CONC 95 MG PO DAILY MAINTENCE (Reported) Oxycodone HCl/Acetaminophen (Percocet 7.5-325 MG Tablet) 7.5 MG-325 MG TABLET 1 TAB PO BID RA (Reported) Prednisone 5 MG TABLET 1 TAB PO DAILY ARTHRITIS (Reported) Ranitidine (Ranitidine HCl) 150 MG TABLET 1 TAB PO PRN GI (Reported) Sulfasalazine 500 MG TABLET 1 TAB PO BID RA (Reported) Venlafaxine HCl (Venlafaxine HCl ER) 225 MG TAB.ER.24 225 MG PO DAILY MENTAL HEALTH (Reported) Zolpidem Tartrate 5 MG TABLET 1 TAB PO QPM SLEEP (Reported) (JONAH ABDUL,AUBREE Forte) Past History Travel History Traveled to [place] past 21 day No Medical History Any Pertinent Medical History? see below for history Neurological: NONE EENT: NONE Cardiovascular: NONE Respiratory: asthma Gastrointestinal: NONE Hepatic: NONE Renal: NONE Musculoskeletal: rheumatoid arthritis Psychiatric: NONE Endocrine: hypothyroidism Blood Disorders: NONE Cancer(s): NONE ARCHITECTURE INTERN/Reproductive: NONE History of MRSA: No History of VRE: No History of CDIFF: No Surgical History Surgical History: appendectomy Psychosocial History Who do you live with Daughter What is your primary language Mongolian Tobacco Use: Never used ETOH Use: denies use Illicit Drug Use: denies illicit drug use Family History Family History, If Any: Relation not specified for: *No pertinent family history Hx Contributory? No (TYESHA COMER,CATRACHO) Review of Systems Review of Systems Constitutional: Reports: no symptoms. EENTM: Reports: no symptoms. Respiratory: Reports: see HPI, short of breath. Cardiovascular: Reports: no symptoms. GI: Reports: no symptoms. Genitourinary: Reports: no symptoms. Musculoskeletal: Reports: no symptoms. Skin: Reports: no symptoms. Neurological/Psychological: Reports: no symptoms. Hematologic/Endocrine: Reports: no symptoms. Immunologic/Allergic: Reports: no symptoms. All Other Systems: Reviewed and Negative (CATRACHO ERVIN) Physical Exam Physical Exam General Appearance: no apparent distress, comfortable Respiratory: chest non-tender, BILATERAL POSTERIOR LUNG FIELD WHEEZING NOTED Comments: Well-developed well-nourished person in no acute distress HEENT: Normal EENT exam, extraocular motion intact, no nystagmus. Pupils equally round and reactive to light and accommodation. Nose is atraumatic. External auditory canal and Tympanic membranes clear. Pharynx normal. No swelling or edema. Neck: Supple, no lymphadenopathy, normal range of motion without pain or tenderness Back: Nontender, no CVA tenderness Cardiovascular: Regular rate and rhythms no murmurs rubs or gallops, normal JVP Abdomen: Soft, nontender nondistended, no appreciable organomegaly. Normal bowel sounds. No ascites Extremity: No edema, no calf tenderness to palpation, normal and equal pulses. Neuro: Alert oriented x3, motor sensory normal Skin: No appreciable rash on exposed skin, skin is warm and dry. Psych: Mood and affect is normal, memory and judgment is normal. Core Measures ACS in differential dx? No Severe Sepsis Present: No Septic Shock Present: No (CATRACHO ERVIN) Progress Differential Diagnosis: asthma, AMI, bronchitis, costochondritis, CHF, COPD, musculoskeletal pain, pericarditis, pulmonary embolism, pneumonia, pneumothorax, rib fracture, unstable angina Plan of Care: Orders Procedure Date/time Status Nothing by Mouth 08/25 B Active CBC WITHOUT DIFFERENTIAL 08/25 599 Active BASIC ELECTROLYTES PLUS BUN&CR 08/25 599 Active Regular Diet 08/24 D Complete Vital Signs 08/24 2209 Active Teach/Educate 08/24 2209 Active Pain Treatment and Response 08/24 2209 Active Nutritional Intake, Monitor 08/24 2209 Active Isolation 08/24 2209 Active Intake & Output 08/24 2209 Active Patient Care Conference 08/24 2209 Active Activity/Ambulation 08/24 2209 Active Pathway - chart 08/24 2142 Active House Staff 08/24 2142 Active Patient Data 08/24 2142 Active Code Status 08/24 2142 Active Saline Lock 08/24 2009 Active Misc Message 08/24 2009 Active ED Holding Orders 08/24 2009 Active Admit to inpatient 08/24 2009 Active Vital Signs 08/24 2009 Active Code Status 08/24 2009 Complete Patient Data 08/24 2006 Active Add-on Test (ER Only) 08/24 194 Active EKG 08/24 191 Active HUMAN BETA HCG SCREEN 08/24 190 Complete Intake & Output 08/24 1544 Active URINE 08/24 151 Active COMPREHENSIVE METABOLIC PANEL 08/24 151 Complete CBC WITHOUT DIFFERENTIAL 08/24 1510 Complete TRC EVALUATION (GEN) 08/24 UNK Active AEROSOL (GEN) 08/24 UNK Active VTE Mechanical Prophylaxis 08/24 UNK Active Current Medications Sig/Carlos Start time Last Medication Dose Stop Time Status Admin Enoxaparin Sodium 40 MG DAILY 08/25 1000 AC (Lovenox) Oxycodone/ 1 TAB BID 08/25 1000 AC Acetaminophen (Percocet) Levothyroxine Sodium 0.05 MG DAILY AC 08/25 699 AC (Synthroid) Omeprazole 20 MG DAILY AC 08/25 699 AC (Prilosec) Methylprednisolone 40 MG Q8 08/25 599 AC (Solumedrol) Lamotrigine 200 MG DAILY 08/24 2244 AC (LaMICtal) Venlafaxine HCl 150 MG DAILY 08/24 2244 AC (Effexor Xr) Albuterol Sulfate 3 ML Q6 PRN 08/24 2199 CAN (Proventil) Clonazepam 0.5 MG BID 08/24 2199 AC 08/24 (KlonoPIN) 08/31 2158 234 Hydroxychloroquine 200 MG BID 08/24 2199 AC Sulfate (Plaquenil 200MG Tab) Ipratropium [place] 2.5 ML TID 08/24 2199 AC (Atrovent) Leflunomide 20 MG BID 08/24 2199 AC (Arava) Sulfasalazine 500 MG BID 08/24 2199 AC (Azulfidine 500 MG Tablet) Zolpidem Tartrate 5 MG QPM 08/24 2199 AC 08/24 (Ambien) 2344 Albuterol Sulfate 3 ML Q4P PRN 08/24 2144 AC (Proventil) Laboratory Tests 08/24/160: Anion Gap 15, Estimated GFR > 60, BUN/Creatinine Ratio 7.1, Glucose 124 H, Calcium 8.3 L, Total Bilirubin 0.5, AST 29, ALT 29, Alkaline Phosphatase 90, Total Protein 6.9, Albumin 3.7, Globulin 3.2, Albumin/Globulin Ratio 1.2, Total Beta HCG NEGATIVE, CBC w Diff MAN DIFF ORDERED, RBC 4.97, MCV 77.9 L, MCH 25.4 L, RDW 18.4 H, MPV 7.6, Gran % 90.3 H, Lymphocytes % 6.5 L, Monocytes % 1.5 L, Eosinophils % 1.4, Basophils % 0.3, Absolute Granulocytes 5.9, Segmented Neutrophils 87 H, Band Neutrophils 6 H, Absolute Lymphocytes 0.4 L, Lymphocytes 5 L, Monocytes 1 L, Absolute Monocytes 0.1 L, Absolute Eosinophils 0.1, Basophils 1, Absolute Basophils 0, Platelet Estimate ADEQUATE, Hypochromic-Microcytic 1+, Anisocytosis 1+, Microcytic Cells 1+, PUBS MCHC 32.5 L Patient is in no respiratory distress. Oxygen saturation 96% room air. Patient will be given nebulizer treatment SOLUMEDEROL and antibiotic. 08/24/2016 5:16:02 PM patient was detention through the continuous nebulizer treatment and showed minimal improvement of wheezing. Magnesium IV was administered 08/24/2016 5:52:34 PM reevaluation the patient, patient still had no improvement of wheezing which aerogen nebulizer was then administered After aerogen NEB was administered patient still had significant wheezing and was patient will be admitted for concerns of asthma exacerbation. Patient on chest x-ray does show concern is a pneumonia however patient was recently diagnosed with pneumonia which most likely can be residual findings. Patient however was administered Levaquin Discussed disposition with patient who agrees. (TYESHA COMER,CATRACHO) Diagnostic Imaging: Viewed by Me: Radiology Read. Radiology Impression: SEE COMMENTS Initial ED EKG: normal intervals, normal p-waves, normal QRS complex, 75 BPM NORMAL SINUS RHYTHM Prior EKG: unchanged Comments: PATIENT: BRENDA ANGULO PRESENT AGE: 41 PATIENT ACCOUNT NO: [id number] : 77 LOCATION: [facility] ORDERING PHYSICIAN: CATRACHO COMER SERVICE DATE: 08/24/16 EXAM TYPE: RAD - XRY-CHEST XRAY, PA AND LATERAL EXAMINATION: XR CHEST CLINICAL INFORMATION: Concern for pneumonia. COMPARISON: Chest x-ray 08/08/2016. TECHNIQUE: PA and lateral views of the chest were obtained. FINDINGS: PA and lateral views of the chest demonstrate infiltrates within the right middle lobe, suspicious for pneumonia. Left lung appears to be grossly clear. No pleural effusions or pneumothoraces. Stable cardiomediastinal contours. No acute osseous abnormality. IMPRESSION: Infiltrates within the right middle lobe, suspicious for pneumonia. (CATRACHO ERVIN) Departure Departure Disposition: STILL A PATIENT Condition: Stable Referrals: GREGORY BO MD (PCP/Family) Departure Forms: Customer Survey General Discharge Information Admission Note Spoke With: MORGAN ANDEROSN MD Documentation of Exam: Documentation of any treatments & extenuating circumstances including Concerns Regarding Discharge (functional status, medication knowledge or non-compliance, living conditions, etc.) that warrant an admission rather than observation: [ Discussed patient with Dr. ANDERSON who agrees with general medicine admission for concerns of asthma exacerbation. Patient requires pulmonary consultation, IV Solu-Medrol, continuous nebulizer treatments and possible further antibiotics. The patient treatment at this time due to unresolved wheezing would be medically harmful] (CATRACHO ERVIN) Departure Clinical Impression Primary Impression: Asthma PA/FURNACE HAND Co-Sign Statement Statement: ED Attending supervision documentation- [] I saw and evaluated the patient. I have also reviewed all the pertinent lab results and diagnostic results. I agree with the findings and the plan of care as documented in the PA's/FURNACE HAND's documentation. [x] I have reviewed the ED Record and agree with the PA's/FURNACE HAND's documentation. [] Additions or exceptions (if any) to the PAs/FURNACE HAND's note and plan are summarized below: [] (JONAH ABDUL,AUBREE Forte) Critical Care Note Critical Care Note Critical Care Time: non-applicable (CATRACHO ERVIN)
--- NOTE | 2016-08-24 15:41 | NUR ---
SOULEYMANE ARAMBULA TO BEDSIDE FOR EVAL.
--- NOTE | 2016-08-24 15:44 | NUR ---
RT CALLED FOR TX.
--- NOTE | 2016-08-24 15:49 | NUR ---
RT TO BEDSIDE AT THIS TIME FOR TX.
--- NOTE | 2016-08-24 15:53 | NUR ---
PER CATRACHO COMER, NO BLOOD WORK AT THIS TIME.
--- NOTE | 2016-08-24 16:00 | NUR ---
LINE EST #20 TO LFA. PT MEDICATED PER EMAR.
--- NOTE | 2016-08-24 16:28 | NUR ---
RT TO BEDSIDE FOR CONTINUOUS NEB TX.
--- NOTE | 2016-08-24 17:39 | NUR ---
MAGNESIUM SULFATE HUNG PER EMAR. MEDICATED PER EMAR. SOULEYMANE ARAMBULA TO BEDSIDE TO DISCUSS POC.
--- NOTE | 2016-08-24 18:22 | NUR ---
DINNER TRAY ORDERED FOR PT.
--- NOTE | 2016-08-24 18:30 | NUR ---
AMBULATORY O2SAT 92%
--- NOTE | 2016-08-24 18:41 | NUR ---
FOOD TRAY PROVIDED TO PT.
--- NOTE | 2016-08-24 19:02 | NUR ---
BLOOD DRAWN AND SENT TO LAB. SST,LAV,BLUE,GARCIA
[2016-08-24 19:09] LABS: ABSOLUTE BASOPHIL COUNT 0 /CUMM (0.0-0.2); ABSOLUTE EOSINOPHIL COUNT 0.1 /CUMM (0.0-0.7); ABSOLUTE GRANULOCYTE CT 5.9 /CUMM (1.4-6.5); ABSOLUTE LYMPH COUNT 0.4 /CUMM (1.2-3.4); ABSOLUTE MONOCYTE COUNT 0.1 /CUMM (0.10-0.60); BASOPHIL % 0.3 % (0.0-2.0); EOSINOPHIL % 1.4 % (0-5); GRANULOCYTE % 90.3 % (42.2-75.2); HEMATOCRIT 38.7 % (37-47); MEAN CORPUSCULAR HGB 25.4 PG (27.0-31.0); MEAN CORPUSCULAR HGB CONC 32.5 G/DL (33.0-37.0); MEAN CORPUSCULAR VOLUME 77.9 FL (81.0-99.0); MEAN PLATELET VOLUME 7.6 FL (7.4-10.4); PLATELET COUNT 240 /CUMM (130-400); RBC DISTRIBUTION WIDTH 18.4 % (11.5-14.5); RED BLOOD CELL CT 4.97 /CUMM (4.20-5.40); WHITE BLOOD CELL COUNT 6.6 /CUMM (4.8-10.8)
--- NOTE | 2016-08-24 20:26 | History & Physical ---
PRASANNA VERAS MD 08/24/162025: General Information and HPI MD Statement: I have seen and personally examined LIANE KENT and documented this H&P. The patient is a 41 year old F who presented with a patient stated chief complaint of shortness of breath. Source of Information: patient, old records Exam Limitations: no limitations History of Present Illness: Ms. Kent is a 41 year old female with PMH asthma (never intubated ), anxiety, depression, hypothyroidism, rheumatoid arthritis on chronic prednisone with associated chronic pain and GERD who presents with chief complaint of shortness of breath. The patient was recently admitted at [facility] from 08/05/16-08/08/16 for an asthma exacerbation and community acquired pneumonia. She was discharged home on oral augmentin for 7 days and an oral prednisone taper after she felt slightly better and requested discharge. She reports she was compliant with these medications after discharge but she continued to experience shortness of breath, wheezing, chills and occasional dry cough. She was noted to use her inhaler more frequently without any relief. Also , due to persistent symptoms in combination with her chronic, severe pain secondary to rheumatoid arthritis, Liane endorses recent worsening of her depression, though she denies thoughts to harm herself or others. Patient denied fever, sore throat, chest pain, palpitations, abdominal pain, nausea, or weakness. Past surgical history is significant for an appendectomy. Social history is negative for tobacco, alcohol or illicit drug use. She follows with Dr. Silas MD at [place] for her rheumatoid arthritis, [facility] for her hypothyroidism/primary care and Care for her anxiety and depression. Though her rheumatoid arthritis is limiting, she is able to ambulate without assist device. Allergies/Medications Allergies: Coded Allergies: cat dander (UNKNOWN 08/31/15) Home Med list Adalimumab (Humira) 40 MG/0.8 ML SYRINGEKIT 40 MG SC Q2W RA (Reported) Albuterol Sulfate 2.5 MG/3 ML (0.083 %) VIAL.NEB 3 ML INH Q6 PRN ASTHMA CONTROL TAKE 4X DAY DAILY FOR ONE WEEK AND THEN USE NECESSARY Clonazepam 0.5 MG TABLET 1 TAB PO BID ANXIETY (Reported) Hydroxychloroquine Sulfate 200 MG TABLET 1 TAB PO BID RA (Reported) Lamotrigine 200 MG TABLET 1 TAB PO DAILY MENTAL HEALTH (Reported) Leflunomide (Arava) 20 MG TABLET 1 TAB PO BID RA (Reported) Levothyroxine Sodium 50 MCG TABLET 1 TAB PO DAILY THYROID (Reported) Methadone HCl (Methadone Intensol) 10 MG/ML ORAL.CONC 95 MG PO DAILY MAINTENCE (Reported) Oxycodone HCl/Acetaminophen (Percocet 7.5-325 MG Tablet) 7.5 MG-325 MG TABLET 1 TAB PO BID RA (Reported) Prednisone 5 MG TABLET 1 TAB PO DAILY ARTHRITIS (Reported) Ranitidine (Ranitidine HCl) 150 MG TABLET 1 TAB PO PRN GI (Reported) Sulfasalazine 500 MG TABLET 1 TAB PO BID RA (Reported) Venlafaxine HCl (Venlafaxine HCl ER) 225 MG TAB.ER.24 225 MG PO DAILY MENTAL HEALTH (Reported) Zolpidem Tartrate 5 MG TABLET 1 TAB PO QPM SLEEP (Reported) Compliance With Home Meds: UNKNOWN Past History Travel History Traveled to [place] past 21 day No Medical History Neurological: NONE EENT: NONE Cardiovascular: NONE Respiratory: asthma Gastrointestinal: NONE Hepatic: NONE Renal: NONE Musculoskeletal: rheumatoid arthritis Psychiatric: NONE Endocrine: hypothyroidism Blood Disorders: NONE Cancer(s): NONE PERMACULTURE DESIGNER/Reproductive: NONE History of MRSA: No History of VRE: No History of CDIFF: No Surgical History Surgical History: appendectomy Past Family/Social History Family History Relations & Conditions if any Relation not specified for: *No pertinent family history Psychosocial History Where do you live? Home Services at Home: None Primary Language: Turkmen Smoking Status: Never Smoked ETOH Use: denies use Illicit Drug Use: denies illicit drug use Functional Ability ADLs Independent: dressing, eating, toileting, bathing. Ambulation: independent IADLs Independent: shopping, housework, finances, food prep, telephone, transportation , medication admin. Sexual History Sexually Active Yes Employment History Employment Disability (Applying for disability) Review of Systems Review of Systems Constitutional: Reports: chills, malaise. Denies: fever. EENTM: Denies: blurred vision, visual changes, hearing changes, nasal congestion, throat pain. Cardiovascular: Reports: peripheral edema (Chronic 2/2 RA). Denies: chest pain, palpitations, syncope. Respiratory: Reports: cough (Dry), short of breath, wheezing. Denies: hemoptysis, orthopnea, sputum production. GI: Denies: abdominal pain, constipation, diarrhea, nausea, vomiting. Genitourinary: Denies: dysuria, hematuria. Musculoskeletal: Reports: joint pain (Chronic RA pain), muscle stiffness. Skin: Denies: rash. Neurological/Psychological: Reports: emotional problems. Denies: confusion, headache, weakness. Hematologic/Endocrine: Denies: bruising, bleeding. Immunologic/Allergic: Denies: splenectomy. All Other Systems: Reviewed and Negative Exam & Diagnostic Data Last 24 Hrs of Vital Signs/I&O Vital Signs Date Time Temp Pulse Resp B/P B/P Pulse O2 O2 Flow FiO2 Mean Ox Delivery Rate 08/24 222 97.7 76 20 120/70 96 Room Air 08/24 2205 93 Room Air 08/24 2138 98.0 78 18 118/68 93 Room Air Room Air 08/24 1741 98.1 85 20 121/74 93 Room Air Room Air 08/24 1636 97.1 74 18 113/67 98 Aerosol Mask 08/24 1625 97 08/24 1553 98 / 1545 Room Air Room Air 08/24 1408 97.1 86 18 137/80 95 Room Air Intake & Output 08/25 0800 08/25 0000 08/24 1600 Intake Total Output Total Balance Patient 165 lb 165 lb Weight Physical Exam General Appearance Alert, Oriented X3, Cooperative, Slightly anxious Skin No Rashes, Slight lower extremity erythema and tight skin 2/2 RA Skin Temp/Moisture Exam: Warm/Dry HEENT Atraumatic, PERRLA, EOMI, Mucous Membr. moist/pink Neck Supple, +2 Carotid Pulse wo Bruit Lymphatic Cervical nl Cardiovascular Regular Rate, Normal S1, Normal S2, No Murmurs Lungs Bilateral wheezing in all lung nieves Abdomen Normal Bowel Sounds, Soft, No Tenderness, No Hepatospenomegaly, No Masses Neurological Normal Speech, Strength at 5/5 X4 Ext, Normal Tone Extremities No Clubbing, No Cyanosis, Tenderness to palpation of bilateral shins which patient reports is chronic 2/2 RA Vascular Pulses Symmetrical Last 24 Hrs of Labs/Shreyas: Laboratory Tests 08/24/16 2350: Urine Test NEGATIVE 08/24/16 1900: Anion Gap 15, Estimated GFR > 60, BUN/Creatinine Ratio 7.1, Glucose 124 H, Calcium 8.3 L, Total Bilirubin 0.5, AST 29, ALT 29, Alkaline Phosphatase 90, Total Protein 6.9, Albumin 3.7, Globulin 3.2, Albumin/Globulin Ratio 1.2, Total Beta HCG NEGATIVE, CBC w Diff MAN DIFF ORDERED, RBC 4.97, MCV 77.9 L, MCH 25.4 L, RDW 18.4 H, MPV 7.6, Gran % 90.3 H, Lymphocytes % 6.5 L, Monocytes % 1.5 L, Eosinophils % 1.4, Basophils % 0.3, Absolute Granulocytes 5.9, Segmented Neutrophils 87 H, Band Neutrophils 6 H, Absolute Lymphocytes 0.4 L, Lymphocytes 5 L, Monocytes 1 L, Absolute Monocytes 0.1 L, Absolute Eosinophils 0.1, Basophils 1, Absolute Basophils 0, Platelet Estimate ADEQUATE, Hypochromic-Microcytic 1+, Anisocytosis 1+, Microcytic Cells 1+, PUBS MCHC 32.5 L Diagnostic Data EKG Results NSR HR 86 bom, QTC prolonged to 519 CXR Results IMPRESSION: Infiltrates within the right middle lobe, suspicious for pneumonia. Assessment/Plan Assessment: Ms. Kent is a 41 year old female with PMH asthma (never intubated) , anxiety, depression, hypothyroidism, rheumatoid arthritis on chronic prednisone with associated chronic pain and GERD who presents with chief complaint of shortness of breath. Patient was recently discharged from [facility] on 08/08/16 after treatment for an asthma exacerbation and pneumonia. She was compliant with discharge instructions to take both a prednisone taper and oral augmentin, however she never followed up with pulmonology, Dr. González Rowell MD. She did not return to baseline respiratory status after discharge and continued to experience shortness of breath, wheezing, chills, dry cough and worsening of her depression secondary to poor physical condition. In the ED: Vital signs showed T 98.1, HR 85 bpm, RR 20, BP 121/74 and O2 saturation of 93% on room air. Labs were significant for WBC 6.6 with 90.3% granulocytosis, normal H&H, Na 138, K 3.5, Cl 103, HCO3 21, BUN 5, Cre 0.7, Glu 124, Ca 8.3, negative beta-HCG. CXR showed similar findings to previous admission with infiltrate in right middle lobe, suspicious for pneumonia. EKG showed NSR HR 86 bpm and prolonged QTC to 519. Patient is admitted to the general medicine floor and the following is the management: 1. Likely asthma exacerbation * Noted diffuse wheezing in all lung nieves in the setting of patient remaining afebrile without leukocytosis likely suggests asthma exacerbation * CXR findings likely show old pneumonia before complete resolution of imaging findings * Differential also includes vocal cord dysfunction and bronchitis * Vital signs Q shift * TRC evaluation and nebs, incentive spirometer * IV soluemdrol 40 mg IV BID * Mucinex BID * Pulm consult to be placed in AM * Consider CT chest without IV contrast in AM if symptoms do not improve, consider rheumatoid arthritis associated lung process 2. Rheumatoid arthritis * Continue planquenil 200 mg PO BID, arava 20 g PO BID, sulfasalaxine 500 mg PO BID * Patient due for Humira on Saturday 3. Chronic pain * Confirm CMR in AM, clarify if patient is on roxicodone with her pharmacy * Percocet 1 tab PO BID (note that patient takes 7.5-325 mg at home) 4. Mental health * Continue effexor XR 150 mg PO daily and lamictal 200 mg PO daily * Ambien 5 mg PO QPM 5. GERD * Prilosec 20 mg PO daily AC 6. Prolonged QTC * Avoid QTC prolonging medications FULL CODE DVTP: SC Lovenox Regular diet Chronic pain pathway As Ranked By This Provider Problem List: 1. Asthma exacerbation 2. Anxiety 3. Hypothyroid 4. Asthma 5. Joint pain 6. Pneumonia Core Measures/Miscellaneous Acute Coronary Syndrome ACS Diagnosis: No Cerebrovascular Accident CVA/TIA Diagnosis: No Congestive Heart Failure CHF Diagnosis: No Venous Thromboembolism VTE Risk Factors: Acute medical illness, Age > 40 [address] [facility] VTE prophylaxis d/t: No contraindications No VTE Pharm Prophylaxis d/t: No contraindications VTE Diagnosis: No VTE Type: NONE VTE Confirmed by (Test): NONE Severe Sepsis Severe Sepsis Present: No Septic Shock Septic Shock Present: No Miscellaneous Documentation Attending Case Discussed With: MORGAN ANDERSON MD Primary Care Physician: GREGORY BO MD Patient sees these Specialists 1. Dr. Silas MD at [facility] for her rheumatoid arthritis 2. [facility] for her hypothyroidism/primary care 3. Care for her anxiety and depression Level of Patient Care: General Medicine NAIMA HAHN 08/24/16 2230: Resident Review Statement Resident Statement: examined this patient, discussed with product marketing intern, agreed with product marketing intern Other Findings: Patient is a 89-year-old female with past medical history significant for childhood asthma,'s rheumatoid arthritis, hypothyroidism, anxiety and depression who had recent admission at [facility] from August 05 to August 08 with pneumonia and asthma exacerbation and was discharged home on oral Augmentin and tapering course of steroid. Patient admits that she didn't feel any better since discharge from hospital and continuously to have wheezing, shortness of breath with slight exertion and tiredness. She denied any cough, phlegm production, headache, nausea, vomiting, any bowel complaints. She endorses to have increased urinary frequency but that is not something new. She has off-and-on chest tightness and sometimes pleuritic chest pain. Her vital signs on admission were temperature 97.1, pulse 86, respiratory rate 18, blood pressure 137/80 mmHg and he was saturating 95% on room air. Labs on admission were WBC count 6.6, hemoglobin 12.6, hematocrit 38.7, platelet count 240, sodium 138, potassium 3.5, BUN 5, creatinine 0.5, Chest x-ray showed infiltrate within right middle lobe which is suspicious for pneumonia Physical examination She is alert and oriented 3, in mild respiratory distress using her accessory muscles Head atraumatic Neck supple Heart S1-S2 normal with no added sounds Lungs bilateral expiratory wheezes throughout Christian Abdomen soft nontender Extremities showed slight erythema without warmth, 1+ dense bilateral edema No neurological deficit noted Assessment and plan Patient is 61-year-old female with past medical history significant for asthma, anxiety, hypothyroidism, depression, severe rheumatoid arthritis recently treated at [facility] for pneumonia and asthma exacerbation came with persistent shortness of breath and respiratory distress along with wheezing most likely her symptoms are due to asthma [place] IV patient versus slowly resolving pneumonia. We will admit patient to general medical floor involving problems will be addressed Problem list 1. Persistent wheezing/shortness of breath most likely asthma exacerbation 2. Right middle lobe infiltrate most likely from recent pneumonia 3. History of rheumatoid arthritis 4. History of anxiety and depression 5. History of GERD Plan 1. TRC and nebulization 2. IV Solu-Medrol 40 mg daily 3. We will watch patient off of antibiotics for now and will repeat her CBC and basic electrolyte panel in a.m. 4. We will continue all her home medications including levothyroxine, Effexor, and motor changes, zolpidem, sulfasalazine, hydroxychloroquine. 5. Pulmonology consultation in a.m. 6. Supplemental oxygen to keep oxygen saturation more than 90%. We will watch patient closely and if she doesn't improve we will consider doing CT chest without contrast. Pharmacological DVT prophylaxis Patient is full code MORGAN ANDERSON 08/25/16 0601: Attending MD Review Statement Attending Statement Attending MD Statement: examined this patient, discuss w/resident/PA/BUILD ENGINEER, agreed w/resident/PA/BUILD ENGINEER, discussed with family, reviewed EMR data (avail), reviewed images, amended to note Attending Assessment/Plan: Cc: Persistent shortness of breath PMH: Rheumatoid arthritis, hypothyroidism, depression, anxiety, asthma Patient was discharged on August 08, was treated for pneumonia and asthma exacerbation, discharged on tapering dose of prednisone and Augmentin. Patient completed this and was still not improving symptomatically so she came back to ER. She does not endorse any new symptoms, no fever or chills, mild chest tightness secondary to shortness of breath but no new sputum production. Vitals: Afebrile, HR 80s, RR 18, blood pressure and O2 saturation in acceptable range. On exam: A O 3, cooperative, mild respiratory distress, accessory muscles in use, neck supple, JVD normal, no lymphadenopathy, mucosa moist, no focal neurological deficit, no dependent edema, no obvious skin rashes or inflammation CVS: S1-S2, RRR. RS: Wheezing bilaterally. Abdomen: Soft, NT, ND, bowel sounds present. Peripheral pulses perfusion normal. Labs: CBC, BMP, LFT unremarkable. Except mild left shift on WBC, bands 6 and bicarbonate 21 CXR: Infiltrates within the right middle lobe, suspicious for pneumonia. A and P Patient comes with persistent shortness of breath and wheezing and dry cough, denies any pleuritic chest pain or new sputum production. She was recently admitted and treated for pneumonia confirmed on CT scan in the right middle lobe. Current chest x-ray confirms right middle lobe infiltrates, slightly that it is persistent from the previous one as compared to new infiltrate. It might take time to resolution of this changes. But at the same times patient has bandemia and patient is immunocompromised secondary to multiple medications for rheumatoid arthritis, in that setting under treatment of pneumonia may be a possibility. She is wheezing bilaterally persistent asthma symptoms may be contributing respiratory compromise. Consider CT without contrast in a.m. if symptoms persist, we will hold off antibiotics for now + Asthma exacerbation + ? Pneumonia + History of traumatic arthritis, hypothyroidism, depression - Admit to general medicine - Continue IV methylprednisolone 40 mg twice a day - Albuterol nebulization when necessary and scheduled - Mucinex - Incentive spirometry - Pulmonary consult - Considers CT chest without contrast if no symptomatic improvement - Repeat CBC, BMP in a.m. - Adequate pain control, DVT prophylaxis
--- NOTE | 2016-08-24 20:31 | NUR ---
PT BED ASSIGNMENT 224-1
--- NOTE | 2016-08-24 20:39 | NUR ---
PT AMBULATORY TO AND FROM RADIOLOGY FOR CHEST X-RAY.
--- NOTE | 2016-08-24 20:50 | RADIOLOGY REPORT ---
EXAMINATION: XR CHEST CLINICAL INFORMATION: Concern for pneumonia. COMPARISON: Chest x-ray 08/08/2016. TECHNIQUE: PA and lateral views of the chest were obtained. FINDINGS: PA and lateral views of the chest demonstrate infiltrates within the right middle lobe, suspicious for pneumonia. Left lung appears to be grossly clear. No pleural effusions or pneumothoraces. Stable cardiomediastinal contours. No acute osseous abnormality. IMPRESSION: Infiltrates within the right middle lobe, suspicious for pneumonia.
--- NOTE | 2016-08-24 20:59 | NUR ---
REPORT GIVEN TO RN ON 2NA. DR. Kraft TO BEDSIDE FOR EVAL AT THIS TIME.
--- NOTE | 2016-08-24 21:27 | NUR ---
TRANSPORT CALLED FOR PT TRANSPORT.
--- NOTE | 2016-08-24 21:30 | NUR ---
PT REFUSING TO CHANGE INTO HOSPITAL GOWN. FAMILY BROUGHT SWEATS FOR PT FOR ADMISSION.
--- NOTE | 2016-08-24 22:05 | NUR ---
PT ARRIVED TO FLOOR AT 2205 VIA WHEELCHAIR. PT AMBULATED TO BED WITHOUT DIFFICULTY, STEADY GAIT. PT STATES SHE HAS A HX OF FALLS IN PAST 3 MO DUE TO HX OF RHEUMATOID ARTHRITIS. PT REFUSING BED ALARM, FALL RISK SCORE 4. PT A/V/OX3. ON RA, O2 SAT AT 96%. PT STATES SHE HAS A COUGH BUT IT IS NONPRODUCTIVE. WHEEZES/RHONCHI NOTED THROUGHOUT LUNGS. PT C/O PAIN 6/10 TO JOINTS, MOSTLY KNEE JOINTS. QA SOFTWARE TESTER CLEMENT MADE AWARE OF PTS REQUEST. PER PT, SHE TAKES 1 TAB PERCOCET BID. PT ALSO REQUESTING DAILY MEDICATIONS WHICH ARE ORDERED TO BEGIN IN AM, QA SOFTWARE TESTER CLEMENT MADE AWARE. SKIN CLEAN DRY & INTACT. PT AWARE OF NEED FOR URINE SAMPLE, PROVIDED URINE CUP. LAST BM 08/24/16. #20 LFA FLUSHING EASILY. PT ORIENTED TO ROOM, CALL BAKER, AND SURROUNDINGS. WILL CONTINUE TO MONITOR.
[2016-08-24 22:23] VITALS: BP 120/70
[2016-08-24] MEDS ORDERED: PERCOCET 7.5-31 EACH PO (23:49)
--- NOTE | 2016-08-25 06:02 | Admission Certification ---
Admission Certification Certification Statement - As attending physician, I certify that at the time of - admission, based on clinical presentation, severity of - symptoms, need for further diagnostic testing and - therapeutic interventions, and risk of adverse outcomes - without in-hospital treatment, in my clinical assessment, - this patient requires an acute hospital stay for a minimum - of two nights or longer. I have also considered psychsocial - factors such as support system, advanced age, financial - issues, cognitive issues, and failed out-patient treatments, - past re-admission history, safety of patient, and lack of - compliance as applicable. Specific rationale supporting this admission is: Asthma exacerbation
[2016-08-25 06:34] VITALS: BP 128/70
--- NOTE | 2016-08-25 07:35 | PN- Housestaff ---
NAIMA HAHN 08/25/16 0735: Subjective Follow-up For: Worsening shortness of breath most likely asthma exacerbation Complaints: no complaints Subjective: This was seen and examined this morning. She still complaining of some shortness of breath. She remained afebrile with temperature 98.2, pulse 75, blood pressure 122/70 and she is saturating 95% on room air. Review of Systems Constitutional: Denies: chills, diaphoresis. EENTM: Denies: blurred vision, double vision. Cardiovascular: Denies: chest pain, orthopena. Respiratory: Reports: short of breath. Denies: cough. Gastrointestinal: Denies: abdominal pain, bloating. Genitourinary: Denies: discharge, dysuria. Objective Last 24 Hrs of Vital Signs/I&O Vital Signs Date Time Temp Pulse Resp B/P B/P Pulse O2 O2 Flow FiO2 Mean Ox Delivery Rate 08/25 0634 98.2 75 20 128/70 95 Room Air 05/ 0000 96 Room Air 08/24 2223 97.7 76 20 120/70 96 Room Air 08/24 2205 93 Room Air 08/24 2138 98.0 78 18 118/68 93 Room Air Room Air 08/24 1741 98.1 85 20 121/74 93 Room Air Room Air 05/ 1636 97.1 74 18 113/67 98 Aerosol Mask 08/24 1625 97 05/05 1553 98 05/05 1545 Room Air Room Air 05/ 1408 97.1 86 18 137/80 95 Room Air Intake & Output / 1600 05/06 0800 05/ 0000 Intake Total 490 Output Total Balance 490 Intake, IV 10 Intake, Oral 480 Number 0 Bowel Movements Patient 165 lb Weight Physical Exam General Appearance: Alert, Oriented X3, Cooperative, No Acute Distress Skin: No Rashes Cardiovascular: Regular Rate, Normal S1, Normal S2 Lungs: bilateral expiratory wheezes Abdomen: Soft, No Tenderness Current Medications: Current Medications Sig/Carlos Start time Last Medication Dose Route Stop Time Status Admin Albuterol Sulfate 3 ML Q6 PRN 08/24 2200 CAN INH Albuterol Sulfate 3 ML Q4P PRN 08/24 2145 AC INH Albuterol Sulfate 3 ML ONCE ONE 08/24 1730 DC / INH 08/24 1731 1736 Albuterol Sulfate 3 ML ONCE ONE 05/05 1545 DC 05/ INH 08/24 1546 1545 Albuterol Sulfate 18 ML ONCE ONE 08/24 1545 DC 08/24 INH 08/24 1546 1547 Clonazepam 0.5 MG BID 08/24 2199 AC 08/24 PO 08/31 2159 2344 Enoxaparin Sodium 40 MG DAILY 08/25 1000 AC SC Guaifenesin 600 MG Q12 08/25 1000 AC PO Hydroxychloroquine 200 MG BID 08/24 2199 AC 08/25 Sulfate PO 0053 Ipratropium [place] 2.5 ML TID 08/24 220 AC INH Ipratropium [place] 2.5 ML ONCE ONE 08/24 1545 DC 08/24 INH 08/24 1546 1547 Lamotrigine 200 MG DAILY 08/24 2244 AC 08/25 PO 0053 Leflunomide 20 MG BID 08/24 220 AC 08/25 PO 0052 Levofloxacin 750 MG ONE ONE 08/24 1545 DC 08/24 PO 08/24 1546 1739 Levothyroxine Sodium 0.05 MG DAILY AC 08/25 0700 AC 08/25 PO 0605 Magnesium Sulfate 1 GM ONCE ONE 08/24 1700 DC 08/24 Dextrose/Water 100 ML IV 08/24 2059 1739 Methylprednisolone 40 MG BID 08/25 1000 AC IV Methylprednisolone 40 MG Q8 08/25 599 DC IV Methylprednisolone 0 .STK-MED ONE 08/24 1559 DC .ROUTE Methylprednisolone 125 MG ONCE ONE 08/24 1545 DC 08/24 IV 08/24 1546 1600 Omeprazole 20 MG DAILY AC 08/25 0700 AC PO Oxycodone/ 1 TAB BID 08/25 1000 AC Acetaminophen PO Oxycodone/ 1 TAB ONCE ONE 08/25 0345 DC 08/25 Acetaminophen PO 08/25 0346 0340 Oxycodone/ 1 TAB ONCE ONE 08/24 2345 DC Acetaminophen PO 08/24 2346 Sulfasalazine 500 MG BID 08/24 2199 AC 08/25 PO 0053 Venlafaxine HCl 150 MG DAILY 08/24 224 AC PO Zolpidem Tartrate 5 MG QPM 08/24 220 AC 08/24 PO 2344 Last 24 Hrs of Lab/Shreyas Results Last 24 Hrs of Labs/Mics: Laboratory Tests 08/25/16 0645: Sodium Pending, Potassium Pending, Chloride Pending, Carbon Dioxide Pending, Anion Gap Pending, BUN Pending, Creatinine Pending, BUN/Creatinine Ratio Pending , CBC w Diff Pending, WBC Pending, RBC Pending, Hgb Pending, Hct Pending, MCV Pending, MCH Pending, RDW Pending, Plt Count Pending, MPV Pending, PUBS MCHC Pending 08/24/16 2350: Urine Test NEGATIVE 08/24/16 1900: Anion Gap 15, Estimated GFR > 60, BUN/Creatinine Ratio 7.1, Glucose 124 H, Calcium 8.3 L, Total Bilirubin 0.5, AST 29, ALT 29, Alkaline Phosphatase 90, Total Protein 6.9, Albumin 3.7, Globulin 3.2, Albumin/Globulin Ratio 1.2, Total Beta HCG NEGATIVE, CBC w Diff MAN DIFF ORDERED, RBC 4.97, MCV 77.9 L, MCH 25.4 L, RDW 18.4 H, MPV 7.6, Gran % 90.3 H, Lymphocytes % 6.5 L, Monocytes % 1.5 L, Eosinophils % 1.4, Basophils % 0.3, Absolute Granulocytes 5.9, Segmented Neutrophils 87 H, Band Neutrophils 6 H, Absolute Lymphocytes 0.4 L, Lymphocytes 5 L, Monocytes 1 L, Absolute Monocytes 0.1 L, Absolute Eosinophils 0.1, Basophils 1, Absolute Basophils 0, Platelet Estimate ADEQUATE, Hypochromic-Microcytic 1+, Anisocytosis 1+, Microcytic Cells 1+, PUBS MCHC 32.5 L Assessment/Plan Assessment: Patient is 61-year-old female with past medical history significant for asthma, anxiety, hypothyroidism, depression, severe rheumatoid arthritis recently treated at [facility] for pneumonia and asthma exacerbation came with persistent shortness of breath and respiratory distress along with wheezing most likely her symptoms are due to asthma [place] IV patient versus slowly resolving pneumonia. We will admit patient to general medical floor involving problems will be addressed Problem list 1. Persistent wheezing/shortness of breath most likely asthma exacerbation 2. Right middle lobe infiltrate most likely from recent pneumonia 3. History of rheumatoid arthritis 4. History of anxiety and depression 5. History of GERD Plan 1. TRC and nebulization 2. IV Solu-Medrol 40 mg daily 3. We will watch patient off of antibiotics for now and will repeat her CBC and basic electrolyte panel in a.m. 4. We will continue all her home medications including levothyroxine, Effexor, and motor changes, zolpidem, sulfasalazine, hydroxychloroquine. 5. Pulmonology consultation in a.m. 6. Supplemental oxygen to keep oxygen saturation more than 90%. We will watch patient closely and if she doesn't improve we will consider doing CT chest without contrast. Problem List: 1. Asthma Pain Ratin Pain Location: Diffuse joint pain Pain Goal: Pain 4 or less Pain Plan: Percocet Tomorrow's Labs & Rationales: CBC and BEP JANEE DUKE MD 08/25/16 1407: Attending MD Review Statement Attending Statement Attending MD Statement: examined this patient, discuss w/resident/PA/CREPE SOLE SCOURER, agreed w/resident/PA/CREPE SOLE SCOURER, reviewed EMR data (avail), discussed with nursing, discussed with case mgmt, amended to note Attending Assessment/Plan: Patient is a 61-year-old female with history of asthma and arthritis. Recently admitted to the hospital with asthma exacerbation and completed her pneumonia. She was discharged about a week and half ago and recently completed her antibiotic course and prednisone taper. She returned to the emergency room yesterday with complaints of shortness of breath. She was found to be in acute asthma exacerbation. She currently reports feeling better. She is ambulating freely around the unit. She is not requiring oxygen supplementation. She was able to take a shower this morning with no complaints. She however continues to wheeze diffusely on examination. She has no jugular venous distention. She does have 1+ bilateral pedal edema and the well-demarcated erythematous rash present on both lower extremities which she reports is chronic and related to her rheumatoid arthritis. Recommendations: -Continue bronchodilator therapy. Continue systemic sure therapy. -I agree with holding off on antibiotic therapy for now. -Please reconsult the pulmonology service. -Obtain sputum culture if possible.
[2016-08-25 09:10] LABS: ABSOLUTE BASOPHIL COUNT 0 /CUMM (0.0-0.2); ABSOLUTE EOSINOPHIL COUNT 0 /CUMM (0.0-0.7); ABSOLUTE GRANULOCYTE CT 6.7 /CUMM (1.4-6.5); ABSOLUTE LYMPH COUNT 0.7 /CUMM (1.2-3.4); ABSOLUTE MONOCYTE COUNT 0.3 /CUMM (0.10-0.60); BASOPHIL % 0 % (0.0-2.0); EOSINOPHIL % 0 % (0-5); GRANULOCYTE % 87.8 % (42.2-75.2); MEAN CORPUSCULAR HGB 25.3 PG (27.0-31.0); MEAN CORPUSCULAR HGB CONC 32.4 G/DL (33.0-37.0); MEAN CORPUSCULAR VOLUME 78.2 FL (81.0-99.0); MEAN PLATELET VOLUME 8.4 FL (7.4-10.4); PLATELET COUNT 258 /CUMM (130-400); RBC DISTRIBUTION WIDTH 18.5 % (11.5-14.5); RED BLOOD CELL CT 4.99 /CUMM (4.20-5.40); WHITE BLOOD CELL COUNT 7.6 /CUMM (4.8-10.8)
--- NOTE | 2016-08-25 13:05 | Event Note ---
Event Note Event Note: Confirmed her methadone dose of 95mg daily and her Effexor dose 150 mg daily.
[2016-08-25 15:49] VITALS: BP 128/70
--- NOTE | 2016-08-25 16:26 | NUR ---
1415- DR. IAIN BOSS AWARE OF K+ 5.4; NO NEW ORDERS AT THIS TIME. LABS TO BE DRAWN AGAIN TOMORROW.
[2016-08-25 22:48] VITALS: BP 132/82
[2016-08-26 06:25] VITALS: BP 140/90
--- NOTE | 2016-08-26 07:51 | PN- Housestaff ---
CESARAIDANIAIN 08/26/16 0750: Subjective Follow-up For: Worsening shortness of breath Subjective: Seen and examined patient. Continues to feel short of breath. Denies fevers, chills, chest pain Review of Systems Constitutional: Denies: chills, diaphoresis, fever, malaise, weakness, unexplained weight loss. Cardiovascular: Denies: chest pain, edema, orthopena, palpitations, peripheral edema, syncope. Respiratory: Reports: short of breath. Denies: cough, hemoptysis, orthopnea, sputum production, stridor, wheezing. Objective Last 24 Hrs of Vital Signs/I&O Vital Signs Date Time Temp Pulse Resp B/P B/P Pulse O2 O2 Flow FiO2 Mean Ox Delivery Rate 08/26 1024 95 Room Air Room Air 08/26 0625 98.4 64 14 140/90 96 Room Air 08/26 0000 95 Room Air / 2248 98.3 61 20 132/82 95 Room Air 08/25 2000 95 Room Air 08/25 1549 98.1 64 20 128/70 96 08/25 1445 Room Air / 1445 95 Room Air Intake & Output 08/26 1600 08/26 0800 08/26 0000 Intake Total 490 615 Output Total Balance 490 615 Intake, IV 10 15 Intake, Oral 480 600 Number 0 Bowel Movements Physical Exam General Appearance: Alert, Oriented X3, Cooperative Cardiovascular: Regular Rate, Normal S1, Normal S2 Lungs: b/l exp wheezes Assessment/Plan Assessment: Patient is 61-year-old female with past medical history significant for asthma, anxiety, hypothyroidism, depression, severe rheumatoid arthritis recently treated at [facility] for pneumonia and asthma exacerbation came with persistent shortness of breath and respiratory distress along with wheezing most likely her symptoms are due to asthma [place] IV patient versus slowly resolving pneumonia. Problem list 1. Persistent wheezing/shortness of breath most likely asthma exacerbation 2. Right middle lobe infiltrate most likely from recent pneumonia 3. History of rheumatoid arthritis 4. History of anxiety and depression 5. History of GERD Plan 1. TRC and nebulization 2. IV Solu-Medrol 40 mg q12 3. continue off antibiotics for now 4. We will continue all her home medications including levothyroxine, Effexor, zolpidem, sulfasalazine, hydroxychloroquine and methadone. 5. Pulmonology on board, appreciate recomendation, f/up CT chest 6. Supplemental oxygen to keep oxygen saturation more than 90%. 7 dvt ppx with lovenox 8. full code Problem List: 1. Pneumonia 2. Anxiety 3. Asthma Pain Ratin Pain Location: na Pain Goal: Pain 4 or less Pain Plan: current regimen Tomorrow's Labs & Rationales: none required SRIKANTH ABDUL,JANEE 08/26/16 1210: Attending MD Review Statement Attending Statement Attending MD Statement: examined this patient, discuss w/resident/PA/ELECTRIC APPLIANCE INSTALLER, agreed w/resident/PA/ELECTRIC APPLIANCE INSTALLER, reviewed EMR data (avail), discussed with nursing, amended to note Attending Assessment/Plan: Patient seen and examined. Resting comfortably not in any acute distress. Ambulating freely around the unit. Not requiring oxygen supplementation. On examination however she continues to wheeze diffusely. She was seen by the pulmonology service this morning and recommendations are to obtain another CT of the chest. She remains afebrile and hemodynamically stable with no leukocytosis off antibiotic therapy. Recommendations: -Repeat chest CT is recommended by the pulmonology service. -Continue to follow patient off antibiotic therapy. -Keep patient on current dose of Solu-Medrol 40 g IV every 12. -Patient encouraged to continue mobilization as tolerated. -Repeat serum chemistry and CBCs tomorrow if there is a change in patients clinical status.
[2016-08-26 09:26] LABS: ABSOLUTE BASOPHIL COUNT 0 /CUMM (0.0-0.2); ABSOLUTE EOSINOPHIL COUNT 0 /CUMM (0.0-0.7); ABSOLUTE GRANULOCYTE CT 7.9 /CUMM (1.4-6.5); ABSOLUTE LYMPH COUNT 1.4 /CUMM (1.2-3.4); ABSOLUTE MONOCYTE COUNT 1.1 /CUMM (0.10-0.60); BASOPHIL % 0.3 % (0.0-2.0); EOSINOPHIL % 0 % (0-5); GRANULOCYTE % 75.6 % (42.2-75.2); HEMATOCRIT 38.7 % (37-47); MEAN CORPUSCULAR HGB 25.4 PG (27.0-31.0); MEAN CORPUSCULAR HGB CONC 32.2 G/DL (33.0-37.0); MEAN CORPUSCULAR VOLUME 78.9 FL (81.0-99.0); MEAN PLATELET VOLUME 8.8 FL (7.4-10.4); PLATELET COUNT 283 /CUMM (130-400); RBC DISTRIBUTION WIDTH 19.2 % (11.5-14.5); WHITE BLOOD CELL COUNT 10.5 /CUMM (4.8-10.8)
--- NOTE | 2016-08-26 10:35 | Cons- Pulmonary ---
General Information and HPI Consulting Request Date of Consult: 08/26/16 Requested By: elyssa History of Present Illness: Patient is 41-year-old woman nonsmoker recently discharged after asthma exacerbation associate with right middle lobe infiltrate thought to be community acquired pneumonia. Returns with increasing shortness of breath bronchospasm and persistent middle lobe density. He said no hemoptysis and scant sputum Allergies/Medications Allergies: Coded Allergies: cat dander (UNKNOWN 08/31/15) Home Med List: Adalimumab (Humira) 40 MG/0.8 ML SYRINGEKIT 40 MG SC Q2W RA (Reported) Albuterol Sulfate 2.5 MG/3 ML (0.083 %) VIAL.NEB 3 ML INH Q6 PRN ASTHMA CONTROL TAKE 4X DAY DAILY FOR ONE WEEK AND THEN USE NECESSARY Clonazepam 0.5 MG TABLET 1 TAB PO BID ANXIETY (Reported) Hydroxychloroquine Sulfate 200 MG TABLET 1 TAB PO BID RA (Reported) Lamotrigine 200 MG TABLET 1 TAB PO DAILY MENTAL HEALTH (Reported) Leflunomide (Arava) 20 MG TABLET 1 TAB PO BID RA (Reported) Levothyroxine Sodium 50 MCG TABLET 1 TAB PO DAILY THYROID (Reported) Methadone HCl (Methadone Intensol) 10 MG/ML ORAL.CONC 95 MG PO DAILY MAINTENCE (Reported) Oxycodone HCl/Acetaminophen (Percocet 7.5-325 MG Tablet) 7.5 MG-325 MG TABLET 1 TAB PO BID RA (Reported) Prednisone 5 MG TABLET 1 TAB PO DAILY ARTHRITIS (Reported) Ranitidine (Ranitidine HCl) 150 MG TABLET 1 TAB PO PRN GI (Reported) Sulfasalazine 500 MG TABLET 1 TAB PO BID RA (Reported) Venlafaxine HCl (Venlafaxine HCl ER) 225 MG TAB.ER.24 225 MG PO DAILY MENTAL HEALTH (Reported) Zolpidem Tartrate 5 MG TABLET 1 TAB PO QPM SLEEP (Reported) Review of Systems Review of Systems Constitutional: Denies: chills, fever. Cardiovascular: Denies: chest pain. Respiratory: Reports: cough, short of breath, wheezing. Denies: hemoptysis. Past History Travel History Traveled to [place] past 21 day No Medical History Blood Transfusion Hx: No Neurological: NONE EENT: NONE Cardiovascular: NONE Respiratory: asthma Gastrointestinal: NONE Hepatic: NONE Renal: NONE Musculoskeletal: rheumatoid arthritis Psychiatric: NONE Endocrine: hypothyroidism Blood Disorders: NONE Cancer(s): NONE IRRIGATION SYSTEM OPERATOR/Reproductive: NONE Surgical History Surgical History: appendectomy Family History Relations & Conditions If Any: Relation not specified for: *No pertinent family history Psychosocial History Where Do You Live? Home Services at Home: None Primary Language: Marshallese Smoking Status: Never Smoked ETOH Use: denies use Illicit Drug Use: denies illicit drug use Functional Ability ADLs Independent: dressing, eating, toileting, bathing. Ambulation: independent IADLs Independent: shopping, housework, finances, food prep, telephone, transportation , medication admin. Employment History Employment: Disability (Applying for disability) Exam & Diagnostic Data Last 24 Hrs of Vital Signs/I&O Vital Signs Date Time Temp Pulse Resp B/P B/P Pulse O2 O2 Flow FiO2 Mean Ox Delivery Rate 08/26 1024 95 Room Air Room Air 08/26 0625 98.4 64 14 140/90 96 Room Air 08/26 0000 95 Room Air 08/25 2248 98.3 61 20 132/82 95 Room Air 08/25 2000 95 Room Air 08/25 1549 98.1 64 20 128/70 96 08/25 1445 Room Air 08/25 1445 95 Room Air Intake & Output 08/26 1600 08/26 0800 08/26 0000 Intake Total 490 615 Output Total Balance 490 615 Intake, IV 10 15 Intake, Oral 480 600 Number 0 Bowel Movements Room air oxygen saturation 95% exam for chest shows diffuse wheezing cardiac exam shows regular S1 and S2 without murmurs abdominal exam is soft nontender Last 48 Hrs of Labs/Shreyas: Laboratory Tests 08/26/16 0805: Anion Gap 11, Estimated GFR > 60, BUN/Creatinine Ratio 20.0, CBC w Diff NO MAN DIFF REQ, RBC 4.90, MCV 78.9 L, MCH 25.4 L, RDW 19.2 H, MPV 8.8, Gran % 75.6 H, Lymphocytes % 13.8 L, Monocytes % 10.3 H, Eosinophils % 0, Basophils % 0.3, Absolute Granulocytes 7.9 H, Absolute Lymphocytes 1.4, Absolute Monocytes 1.1 H, Absolute Eosinophils 0, Absolute Basophils 0, PUBS MCHC 32.2 L 08/25/16 0645: Anion Gap 11, Estimated GFR > 60, BUN/Creatinine Ratio 13.3, CBC w Diff NO MAN DIFF REQ, RBC 4.99, MCV 78.2 L, MCH 25.3 L, RDW 18.5 H, MPV 8.4, Gran % 87.8 H, Lymphocytes % 8.8 L, Monocytes % 3.4, Eosinophils % 0, Basophils % 0 L, Absolute Granulocytes 6.7 H, Absolute Lymphocytes 0.7 L, Absolute Monocytes 0.3, Absolute Eosinophils 0, Absolute Basophils 0, PUBS MCHC 32.4 L 08/24/16 2350: Urine Test NEGATIVE 08/24/16 1900: Anion Gap 15, Estimated GFR > 60, BUN/Creatinine Ratio 7.1, Glucose 124 H, Calcium 8.3 L, Total Bilirubin 0.5, AST 29, ALT 29, Alkaline Phosphatase 90, Total Protein 6.9, Albumin 3.7, Globulin 3.2, Albumin/Globulin Ratio 1.2, Total Beta HCG NEGATIVE, CBC w Diff MAN DIFF ORDERED, RBC 4.97, MCV 77.9 L, MCH 25.4 L, RDW 18.4 H, MPV 7.6, Gran % 90.3 H, Lymphocytes % 6.5 L, Monocytes % 1.5 L, Eosinophils % 1.4, Basophils % 0.3, Absolute Granulocytes 5.9, Segmented Neutrophils 87 H, Band Neutrophils 6 H, Absolute Lymphocytes 0.4 L, Lymphocytes 5 L, Monocytes 1 L, Absolute Monocytes 0.1 L, Absolute Eosinophils 0.1, Basophils 1, Absolute Basophils 0, Platelet Estimate ADEQUATE, Hypochromic-Microcytic 1+, Anisocytosis 1+, Microcytic Cells 1+, PUBS MCHC 32.5 L Assessment/Plan Impression/Plan: 41-year-old woman who carries diagnosis of asthma is readmitted with acute bronchospasm and persistent right middle lobe infiltrate. Recommendations: Repeat CT scan of the chest. Change sputum C&S. Continue current steroid dose nebs. Dr. Rowell will follow-up tomorrow Consult Acknowledgment - Thank you for your consult request.
[2016-08-26 15:49] VITALS: BP 120/80
--- NOTE | 2016-08-26 19:16 | CT SCAN REPORT ---
EXAMINATION: CT CHEST WITHOUT CONTRAST CLINICAL INFORMATION: Pneumonia COMPARISON: Chest x-rays dated 08/24/2016 and 08/08/[address] scan 08/06/2016 TECHNIQUE: Multidetector volumetric CT imaging of the chest was done. Axial MIP volume rendering provided. Sagittal and coronal reformatted images were obtained. DLP: 240.62 mGy-cm FINDINGS: LUNGS: There is a 5 cm area of right middle lobe opacity as seen on axial image 36 from series 3 . This area of opacities is slightly more anteriorly located than the CT finding on 08/06/2016 and is more retracted in appearance as seen on coronal image 26/96 from series 601. There is a subsegmental area of groundglass opacity in the lingula, a new finding since the comparison CT scan. It is better seen on axial image 40 and 41/61 from series 3 and coronal image 39/96 from series 601. The lungs are otherwise clear. No suspicious pulmonary nodules. No pleural effusions. No pneumothorax. MEDIASTINUM: The cardiac size is normal. No pericardial effusion. The thoracic aorta and pulmonary arteries are normal in diameter. The trachea and cristian are normal. There are no mediastinal, hilar or axillary adenopathy is the in the noncontrast CT scan. PLEURA: There is no pleural effusion. No pleural mass or thickening. UPPER ABDOMEN: Unremarkable. OSSEOUS STRUCTURES: Unremarkable. IMPRESSION: 1. The area of pulmonary airspace disease in the right middle lobe has a more retracted appearance on the current exam than the 08/06/2016 CT scan and could represent resolving pneumonia. Clinical correlation is advised. In an asymptomatic patient, follow-up chest CT scan in 3-4 months may be considered to ensure complete imaging resolution. 2. Interval development of a small subsegmental groundglass opacity in the lingula, could be atelectatic in nature. This area can also be followed by the follow-up CT scan.
[2016-08-26 21:41] VITALS: BP 160/100
[2016-08-26 23:51] VITALS: BP 136/80
[2016-08-27 06:30] VITALS: BP 140/80
--- NOTE | 2016-08-27 06:33 | PN- Housestaff ---
See Addendum Subjective Follow-up For: Worsening shortness of breath Subjective: Seen and examined patient. States her breathing has improved Denies fevers, chills, chest pain Review of Systems Constitutional: Denies: chills, diaphoresis, fever, malaise, weakness, unexplained weight loss. Cardiovascular: Denies: chest pain, edema, orthopena, palpitations, peripheral edema, syncope. Respiratory: Reports: cough. Denies: hemoptysis, orthopnea, short of breath, sputum production, stridor, wheezing. Objective Last 24 Hrs of Vital Signs/I&O Vital Signs Date Time Temp Pulse Resp B/P B/P Pulse O2 O2 Flow FiO2 Mean Ox Delivery Rate 08/27 629 97.8 56 18 140/80 96 Room Air 08/26 2351 66 20 136/80 98 Room Air 08/26 2349 95 Room Air 08/26 2144 95 Room Air 08/26 2141 98.2 59 20 160/100 96 Room Air 08/26 1549 98.3 70 20 120/80 96 08/26 1024 95 Room Air Room Air Intake & Output 08/27 1600 08/27 0800 08/27 0000 Intake Total 500 700 Output Total Balance 500 700 Intake, Oral 500 700 Physical Exam General Appearance: Alert, Oriented X3, Cooperative, No Acute Distress Cardiovascular: Regular Rate, Normal S1, Normal S2 Lungs: Normal Air Movement Abdomen: Normal Bowel Sounds, Soft, No Tenderness Extremities: No Edema Current Medications: Current Medications Sig/Carlos Start time Last Medication Dose Route Stop Time Status Admin Albuterol Sulfate 3 ML BID 08/25 2199 AC 08/26 INH 2144 Clonazepam 0.5 MG BID 08/24 2199 AC 08/26 PO 08/31 215 2159 Enoxaparin Sodium 40 MG DAILY 08/25 1000 AC 08/26 SC 1036 Guaifenesin 600 MG Q12 08/25 1000 AC 08/26 PO 2159 Hydroxychloroquine 200 MG BID 08/24 2199 AC 08/26 Sulfate PO 215 Lamotrigine 200 MG DAILY 08/24 2245 AC 08/26 PO 1036 Leflunomide 20 MG BID 08/240 AC 08/26 PO 2159 Levothyroxine Sodium 0.05 MG DAILY AC 08/25 0700 AC 08/27 PO 0630 Methadone HCl 95 MG DAILY 08/25 1315 AC 08/26 PO 1035 Methylprednisolone 40 MG BID 08/25 1000 AC 08/26 IV 1035 Omeprazole 20 MG DAILY AC 08/25 0700 AC PO Oxycodone/ 1 TAB BID 08/25 1000 AC 08/26 Acetaminophen PO 2158 Sulfasalazine 500 MG BID 08/24 2200 AC 08/26 PO 215 Venlafaxine HCl 150 MG DAILY 08/24 2245 AC 08/26 PO 1036 Zolpidem Tartrate 5 MG QPM 08/24 220 AC 08/26 PO 215 Assessment/Plan Assessment: Patient is 61-year-old female with past medical history significant for asthma, anxiety, hypothyroidism, depression, severe rheumatoid arthritis recently treated at [facility] for pneumonia and asthma exacerbation came with persistent shortness of breath and respiratory distress along with wheezing most likely her symptoms are due to asthma [place] IV patient versus slowly resolving pneumonia. Problem list 1. Persistent wheezing/shortness of breath most likely asthma exacerbation 2. Right middle lobe infiltrate most likely from recent pneumonia 3. History of rheumatoid arthritis 4. History of anxiety and depression 5. History of GERD Plan 1. TRC and nebulization 2. currently on IV Solu-Medrol 40 mg q12 3. continue off antibiotics for now 4. We will continue all her home medications including levothyroxine, Effexor, zolpidem, sulfasalazine, hydroxychloroquine and methadone. 5. Pulmonology on board, appreciate recomendation, CT chest shows pul 6. Supplemental oxygen to keep oxygen saturation more than 90%. 7 dvt ppx with lovenox 8. full code Problem List: 1. Pneumonia 2. Asthma Pain Ratin Pain Location: na Pain Goal: Pain 4 or less Pain Plan: current regimen Tomorrow's Labs & Rationales: none required
--- NOTE | 2016-08-27 09:12 | PN- Pulmonary ---
See Addendum Subjective HPI/Critical Care Issues: pt seen and examined afebrile hemodynamically stable 96% room air Objective Vital Signs & I&O Last 24 Hrs of Vitals and I&O: Vital Signs Date Time Temp Pulse Resp B/P B/P Pulse O2 O2 Flow FiO2 Mean Ox Delivery Rate 08/27 0530 97.8 56 18 140/80 96 Room Air 08/26 2351 66 20 136/80 98 Room Air 08/26 2349 95 Room Air 08/26 2144 95 Room Air 08/26 2141 98.2 59 20 160/100 96 Room Air 08/26 1549 98.3 70 20 120/80 96 05/ 1024 95 Room Air Room Air Intake & Output 08/27 1600 08/27 0800 08/27 0000 Intake Total 500 700 Output Total Balance 500 700 Intake, Oral 500 700 Impression/Plan Impression/Plan Impression/Plan: Impression 41 year old woman * asthma exacerbation/bronchospasm * atelectasis * rheumatoid arthritis CT reviewed 1. The area of pulmonary airspace disease in the right middle lobe has a more retracted appearance on the current exam than the 08/06/2016 CT scan and could represent resolving pneumonia. Clinical correlation is advised. In an asymptomatic patient, follow-up chest CT scan in 3-4 months may be considered to ensure complete imaging resolution. 2. Interval development of a small subsegmental groundglass opacity in the lingula, could be atelectatic in nature. This area can also be followed by the follow-up CT scan. Plan - TRC/Nebs - solumedrol for another day and change to prednisone 40mg tomorrow with a 10mg taper every 3 days, until reach her rheumatological dose - will need f/u imaging within 8 wks - mucinex - cont RA drugs - DC planning within 24-48 hrs DVT prophylaxis at all times
[2016-08-27 14:02] VITALS: BP 140/80
[2016-08-27 22:33] VITALS: BP 114/82
[2016-08-28 06:56] VITALS: BP 142/86
--- NOTE | 2016-08-28 08:03 | PN- Housestaff ---
SLY ABDUL,MADALYN 08/28/16 0802: Subjective Follow-up For: Worsening shortness of breath, 2/2 asthma exacerbation Complaints: shortness of breath Subjective: I followed up and examined the patient today. She is resting in bed, without additional oxygen, still has some shortness of breath, and pain over lateral side of her chest on coughing; denies fevers/chills/chest pain/palpitation. She is bringing up greyish thin sputum with her coughs. Vitals have been stable, no issues overnight. Review of Systems Constitutional: Reports: see HPI. Objective Last 24 Hrs of Vital Signs/I&O Vital Signs Date Time Temp Pulse Resp B/P B/P Pulse O2 O2 Flow FiO2 Mean Ox Delivery Rate 08/29 823 95 Room Air 08/28 0656 97.9 55 20 142/86 98 Room Air 08/28 0000 98 Room Air 08/27 2233 98.0 58 18 114/82 98 08/27 2005 98 Room Air 08/27 1402 98.1 81 20 140/80 97 Part ReBreather Intake & Output 08/28 1600 08/28 0800 08/28 0000 Intake Total 50 Output Total Balance 50 Intake, IV 0 Intake, Oral 50 Number 0 Bowel Movements Physical Exam General Appearance: Alert, Oriented X3, Cooperative, Mild Distress Other Physical Findings: Cardiovascular: Regular Rate, Normal S1, Normal S2 Lungs: Bilateral wheezes heard, patient in mild respiratory distress Abdomen: Normal Bowel Sounds, Soft, No Tenderness Extremities: No Edema Current Medications: Current Medications Sig/Carlos Start time Last Medication Dose Route Stop Time Status Admin Adalimumab 40 MG ONCE ONE 08/27 1130 DC SC 08/27 1131 Albuterol Sulfate 3 ML BID 08/25 2199 AC 08/28 INH 0822 Clonazepam 0.5 MG BID 08/24 2199 AC 08/28 PO 08/31 215 1047 Enoxaparin Sodium 40 MG DAILY 08/25 1000 AC 08/28 SC 1048 Guaifenesin 600 MG Q12 08/25 1000 AC 08/28 PO 1049 Hydroxychloroquine 200 MG BID 08/24 2199 AC 08/28 Sulfate PO 1049 Lamotrigine 200 MG DAILY 08/24 2245 AC 08/28 PO 1049 Leflunomide 20 MG BID 08/24 2199 AC 08/28 PO 1050 Levothyroxine Sodium 0.05 MG DAILY AC 08/25 0700 AC 08/28 PO 0636 Lidocaine 1 PAT DAILY 08/28 1039 AC EXT Methadone HCl 95 MG DAILY 08/25 1315 AC 08/28 PO 1048 Methylprednisolone 40 MG BID 08/25 1000 AC 08/28 IV 1048 Omeprazole 20 MG DAILY AC 08/25 0700 AC PO Oxycodone/ 2 TAB BID 08/27 2200 AC 08/28 Acetaminophen PO 1048 Patient Medication 1 ED .STK-MED ONE 08/27 1406 MS Teaching ED 08/27 1407 Sulfasalazine 500 MG BID 08/24 2200 AC 08/28 PO 1050 Venlafaxine HCl 150 MG DAILY 08/24 2245 AC 08/28 PO 1049 Zolpidem Tartrate 5 MG QPM 08/24 2199 AC 08/27 PO 2056 Assessment/Plan Assessment: Patient is 61-year-old female with past medical history significant for asthma, anxiety, hypothyroidism, depression, severe rheumatoid arthritis recently treated at [facility] for pneumonia and asthma exacerbation came with persistent shortness of breath and respiratory distress along with wheezing. Most likely her symptoms are due to asthma exacerbation versus slowly resolving pneumonia. Patient is currently being managed in the general medical floor for the following issues: #Acute hypoxic respiratory failure, secondary to asthma exacerbation Patient shows signs of improvement but still has diffuse wheezes all over the lung nieves bilaterally. Patient received IV steroids until yesterday and initial plan was to change it to oral steroids from today. According to Hernán consultation, will continue IV steroids today and plan to start oral steroids with taper tomorrow. Continue total respiratory care, nebulizations, incentive spirometry, Mucinex. Continue to watch patient off antibiotic. Patient needs reimaging as a follow-up in 8 weeks. -Added Lidoderm patch for left lateral chest pain. -Increased dose of Percocet with 103 25 was started yesterday #History of rheumatoid arthritis Continue home medications and pain medications. Of note, patient does not have Humira as inpatient, needs to bring from home. She has agreed to bring it by someone else today. #Prolonged QTc interval -Avoid QTC prolonging medications, such as ondansetron, haloperidol. #Continue home medication for anxiety, depression, GERD #Regular diet #DVT prophylaxis with Lovenox #Full code Problem List: 1. Asthma exacerbation Pain Ratin Pain Location: Left lateral side of her chest, on coughing only Pain Goal: Pain 4 or less Pain Plan: When necessary pain medication plus Lidoderm patch added today Tomorrow's Labs & Rationales: - JING DUKE MDNATACHASTEPHANIE 08/28/16 1611: Attending MD Review Statement Attending Statement Attending MD Statement: examined this patient, discuss w/resident/PA/DAIRY TECHNICIAN, agreed w/resident/PA/DAIRY TECHNICIAN, discussed with family, reviewed EMR data (avail), discussed with nursing, discussed with case mgmt, amended to note Attending Assessment/Plan: Patient seen and examined. Resting comfortably not in any acute distress. She is maintaining saturation on room air. She is ambulating freely around the unit. On auscultation wheezing has improved significantly today. Pulmonology follow-up appreciated. She'll be switched to oral prednisone tomorrow. She may be discharged home tomorrow with outpatient follow-up if she is cleared by the pulmonology service.
--- NOTE | 2016-08-28 11:23 | PN- Pulmonary ---
Subjective HPI/Critical Care Issues: Patient seen and examined this morning. She is complaining of pain however improved. She is improving respiratory status but still wheezing and has scattered rhonchi. Objective Vital Signs & I&O Last 24 Hrs of Vitals and I&O: Vital Signs Date Time Temp Pulse Resp B/P B/P Pulse O2 O2 Flow FiO2 Mean Ox Delivery Rate 08/29 823 95 Room Air 08/28 0656 97.9 55 20 142/86 98 Room Air 08/28 0000 98 Room Air 08/27 2233 98.0 58 18 114/82 98 08/27 2005 98 Room Air 08/27 1402 98.1 81 20 140/80 97 Part ReBreather Intake & Output 08/28 1600 08/28 0800 08/28 0000 Intake Total 50 Output Total Balance 50 Intake, IV 0 Intake, Oral 50 Number 0 Bowel Movements Exam Other Physical Findings: Gen - alert and awake HEENT - NCAT CVS - S1, S2, no murmurs, rubs or gallops Lungs - bilateral scattered rhonchi Abdomen - soft, non-tender, bs+ Ext - no edema, no cyanosis Impression/Plan Impression/Plan Impression/Plan: Impression 41 year old woman * asthma exacerbation/bronchospasm * atelectasis * rheumatoid arthritis CT reviewed 1. The area of pulmonary airspace disease in the right middle lobe has a more retracted appearance on the current exam than the 08/06/2016 CT scan and could represent resolving pneumonia. Clinical correlation is advised. In an asymptomatic patient, follow-up chest CT scan in 3-4 months may be considered to ensure complete imaging resolution. 2. Interval development of a small subsegmental groundglass opacity in the lingula, could be atelectatic in nature. This area can also be followed by the follow-up CT scan. Plan - TRC/Nebs - solumedrol for another day - Can switch to by mouth prednisone on August 29 can start with 60 mg and taper every 2 days until reach her rheumatological dose - will need f/u imaging within 8 wks - mucinex - cont RA drugs - DC planning within 24-48 hrs DVT prophylaxis at all times
[2016-08-28 14:04] VITALS: BP 124/58
[2016-08-28 22:00] VITALS: BP 120/80
[2016-08-29 06:28] VITALS: BP 124/80
--- NOTE | 2016-08-29 07:24 | PN- Att Addend ---
Attending Addendum Attending Brief Note Patient seen and examined. Resting comfortably and not in acute distress. No issues overnight. She continues to maintain saturation on room air. She reports mild productive cough. Reports a pleuritic chest pain is controlled with her current regimen. She remains afebrile and hemodynamically stable. Gen. appearance: Well-developed, not in acute distress Lungs: Good entry bilaterally today. Mild diffuse rhonchi. Heart: S1-S2 regular Abdomen: Soft, nontender with normal bowel sounds Extremities: Bilateral lower extremity erythema has improved. Trace edema. Problems: 1. Acute asthma suspicion. 2. Recently treated for community-acquired pneumonia 3. Rheumatoid arthritis Plan: -Patient continues to maintain saturation on room air. She is ablated freely around the unit. -Patient has been transitioned to oral steroid therapy. -She may be discharged home today if cleared by the pulmonary service. -She will be discharged home on a prednisone taper and will follow-up with the pulmonology service as an outpatient.
--- NOTE | 2016-08-29 07:39 | PN- Housestaff ---
See Addendum Subjective Follow-up For: Worsening shortness of breath, 2/2 asthma exacerbation Complaints: no complaints Subjective: I followed up and examined the patient today. She is resting comfortably in her bed, not in distress, does not have any complaints, vitals stable overnight. Refused IV Solu-Medrol last night. This morning, she refused Mucinex and and Lidoderm. No overnight issues otherwise. She did not receive Humira dose yet because the person responsible to bring her Humira from home as not done so. Patient is eatger to go home today. Review of Systems Constitutional: Reports: no symptoms. Objective Last 24 Hrs of Vital Signs/I&O Vital Signs Date Time Temp Pulse Resp B/P B/P Pulse O2 O2 Flow FiO2 Mean Ox Delivery Rate 08/30 915 96 Room Air 08/29 0528 98.5 61 20 124/80 97 Room Air 08/28 2199 97.6 68 20 120/80 95 08/28 2021 96 Room Air 08/28 1404 97.4 84 20 124/58 98 Room Air Intake & Output 08/29 1600 08/29 0800 08/29 0000 Intake Total 240 450 Output Total Balance 240 450 Intake, Oral 240 450 Physical Exam General Appearance: Alert, Oriented X3, Cooperative, No Acute Distress Other Physical Findings: Cardiovascular: Regular Rate, Normal S1, Normal S2 Lungs: Bilateral mild wheezes heard anteriorly, no wheezes or crackles heard basally/posteriorly and laterally. Patient not in respiratory distress. Abdomen: Normal Bowel Sounds, Soft, No Tenderness Extremities: No Edema Current Medications: Current Medications Sig/Carlos Start time Last Medication Dose Route Stop Time Status Admin Adalimumab 40 MG ONCE ONE 08/28 1914 DC 08/28 SC 08/28 Albuterol Sulfate 3 ML BID 08/25 2199 AC 08/29 INH 905 Clonazepam 0.5 MG BID 08/24 2199 AC 08/29 PO 08/31 2158 0949 Enoxaparin Sodium 40 MG DAILY 08/25 999 AC 08/29 SC 947 Guaifenesin 600 MG Q12 08/25 999 AC 08/28 PO 215 Hydroxychloroquine 200 MG BID 08/24 2199 AC 08/29 Sulfate PO 947 Lamotrigine 200 MG DAILY 08/24 2245 AC 08/29 PO 947 Leflunomide 20 MG BID 08/24 2199 AC 08/29 PO 0948 Levothyroxine Sodium 0.05 MG DAILY AC 08/25 0700 AC 08/29 PO 0540 Lidocaine 1 PAT DAILY 08/28 1039 AC 08/28 EXT 1129 Methadone HCl 95 MG DAILY 08/25 1315 AC 05 PO 0949 Methylprednisolone 40 MG BID 08/25 1000 DC 08/28 IV 1048 Omeprazole 20 MG DAILY AC 08/25 0700 AC PO Oxycodone/ 2 TAB BID 08/27 2200 AC 08/29 Acetaminophen PO 0949 Patient Medication 1 ED .STK-MED ONE 08/28 1403 DC Teaching ED 08/28 1404 Prednisone 40 MG DAILY 08/29 1000 AC 08/29 PO 0947 Sulfasalazine 500 MG BID 08/24 2200 AC 08/29 PO 0948 Venlafaxine HCl 150 MG DAILY 08/24 2245 AC 08/29 PO 0948 Zolpidem Tartrate 5 MG QPM 08/24 2200 AC 08/28 PO 2155 Assessment/Plan Assessment: Patient is 61-year-old female with past medical history significant for asthma, anxiety, hypothyroidism, depression, severe rheumatoid arthritis recently treated at [facility] for pneumonia and asthma exacerbation came with persistent shortness of breath and respiratory distress along with wheezing. Most likely her symptoms are due to asthma exacerbation versus slowly resolving pneumonia. Patient is currently being managed in the general medical floor for the following issues: #Acute hypoxic respiratory failure, secondary to asthma exacerbation Patient shows signs of improvement and is much better than yesterday. She still has mild wheezes anteriorly but rest of her chest examination is near normal. IV steroids at this point can be stopped and she is to by mouth steroids. Awaiting pulmonary consultation for the final discharge disposition. Otherwise the plan is to send her home on a tapering oral steroids while maintaining the final steroid dose near her baseline for rheumatoid arthritis. At which point, she has to visit her rn hemodialysis charge and also discuss about steroid dose. Continue total respiratory care, nebulizations, incentive spirometry, Mucinex. Continue to watch patient off antibiotic. Patient needs reimaging as a follow- up in 8 weeks. #History of rheumatoid arthritis Continue home medications and pain medications. Of note, patient does not have Humira as inpatient, needs to bring from home. She had agreed to bring it by someone else but this has not been possible so far. #Prolonged QTc interval -Avoid QTC prolonging medications, such as ondansetron, haloperidol. #Continue home medication for anxiety, depression, GERD #Pain management: Increased dose of Percocet with 103 25 was started yesterday #Regular diet #DVT prophylaxis with Lovenox #Full code Problem List: 1. Asthma exacerbation 2. Rheumatoid arthritis Pain Ratin Pain Location: left lateral chest (under control) Pain Goal: Pain 4 or less Pain Plan: prn, meds revised yesterday Tomorrow's Labs & Rationales: -
[2016-08-29] MEDS ORDERED: PREDNISONE10 M2 PO ×2 (07:46→10:17)
[2016-08-29] MEDS ORDERED: PREDNISONE5 M1 PO (07:48)
--- NOTE | 2016-08-29 07:52 | Patient Discharge Instructions ---
Discharge Instructions General Discharge Information You were seen/treated for: Asthma exacerbation Watch for these problems: Shortness of breath, chest pain, palpitation Special Instructions: Please visite your primary care physician within 7 days of discharge. Please visit your hotel front desk clerk within 7 days of discharge. You need of follow- up imaging of the chest to check resolution within 8 weeks of discharge. Your steroids doses have been changed. Please take prednisone in a tapering manner as prescribed. Start taking your regular dose of prednisone 5 mg only after the tapering has stopped as prescribed. Please call us if you have any questions/confusion. Please return to emergency if symptoms worsen. Diet Continue normal diet: Yes Recommended Diet: Heart Healthy Activity Full Activity/No Limits: Yes Acute Coronary Syndrome Inclusion Criteria At DC or during hospital stay patient has or had the following: ACS DIAGNOSIS No Discharge Core Measures Meds if any: Prescribed or Continued at Discharge Meds if any: NOT Prescribed or Continued at Discharge Congestive Heart Failure Inclusion Criteria At DC or during hospital stay patient has or had the following: CHF DIAGNOSIS No Discharge Core Measures Meds if any: Prescribed or Continued at Discharge Meds if any: NOT Prescribed or Continued at Discharge Cerebrovascular accident Inclusion Criteria At DC or during hospital stay patient has or had the following: CVA/TIA Diagnosis No Discharge Core Measures Meds if any: Prescribed or Continued at Discharge Meds if any: NOT Prescribed or Continued at Discharge Venous thromboembolism Inclusion Criteria VTE Diagnosis No VTE Type NONE VTE Confirmed by (Test) NONE Discharge Core Measures - Per Current guidelines, there needs to be overlap - treatment for the first 5 days of Warfarin therapy. - If discharged on Warfarin prior to 5 days of - overlap therapy, the patient will need to be - assessed for post discharge needs including - *Post discharge parental anticoagulation - *Warfarin and/or parental anticoagulation education - *Follow up date to check INR post discharge At least 5 days overlap therapy as Inpatient No Meds if any: Prescribed or Continued at Discharge Note: Overlap Therapy is Warfarin and Anticoagulant Meds if any: NOT Prescribed or Continued at Discharge
--- NOTE | 2016-08-29 10:49 | PN- Pulmonary ---
Subjective HPI/Critical Care Issues: pt seen and examined improved pain resolving dyspnea improved as well Objective Current Medications: Current Medications Sig/Carlos Start time Last Medication Dose Route Stop Time Status Admin Adalimumab 40 MG ONCE ONE 08/28 1914 DC 08/28 SC 08/28 Albuterol Sulfate 3 ML BID 08/25 2199 AC 08/29 INH 0906 Clonazepam 0.5 MG BID 08/24 2199 AC 08/29 PO 08/31 215 0949 Enoxaparin Sodium 40 MG DAILY 08/25 1000 AC 08/29 SC 0948 Guaifenesin 600 MG Q12 08/25 1000 AC 08/28 PO 2154 Hydroxychloroquine 200 MG BID 08/24 2199 AC 08/29 Sulfate PO 0948 Lamotrigine 200 MG DAILY 08/24 2244 AC 08/29 PO 0948 Leflunomide 20 MG BID 08/24 2199 AC 08/29 PO 0948 Levothyroxine Sodium 0.05 MG DAILY AC 08/25 0700 AC 08/29 PO 0540 Lidocaine 1 PAT DAILY 08/28 1039 AC 08/28 EXT 1129 Methadone HCl 95 MG DAILY 08/25 1315 AC 08/29 PO 0949 Methylprednisolone 40 MG BID 08/25 1000 DC 08/28 IV 1048 Omeprazole 20 MG DAILY AC 08/25 0700 AC PO Oxycodone/ 1 TAB .STK-MED ONE 08/28 1105 DC Acetaminophen PO 08/28 1106 Oxycodone/ 2 TAB BID 08/27 2199 AC 08/29 Acetaminophen PO 0949 Patient Medication 1 ED .STK-MED ONE 08/28 1403 DC Teaching ED 08/28 1404 Prednisone 40 MG DAILY 08/29 1000 AC 08/29 PO 0947 Sulfasalazine 500 MG BID 08/24 220 AC 08/29 PO 0948 Venlafaxine HCl 150 MG DAILY 08/24 2244 AC 08/29 PO 0948 Zolpidem Tartrate 5 MG QPM 08/24 2199 AC 08/28 PO 2155 Vital Signs & I&O Last 24 Hrs of Vitals and I&O: Vital Signs Date Time Temp Pulse Resp B/P B/P Pulse O2 O2 Flow FiO2 Mean Ox Delivery Rate 08/30 915 96 Room Air 08/30 627 98.5 61 20 124/80 97 Room Air 08/28 2199 97.6 68 20 120/80 95 08/28 2020 96 Room Air 08/28 1404 97.4 84 20 124/58 98 Room Air Intake & Output 08/29 1600 08/29 0800 08/29 0000 Intake Total 240 450 Output Total Balance 240 450 Intake, Oral 240 450 Patient 165 lb Weight Exam Other Physical Findings: Gen - alert and awake HEENT - NCAT CVS - S1, S2, no murmurs, rubs or gallops Lungs - improved bilateral scattered rhonchi Abdomen - soft, non-tender, bs+ Ext - no edema, no cyanosis Impression/Plan Impression/Plan Impression/Plan: Impression 41 year old woman * asthma exacerbation/bronchospasm * atelectasis * rheumatoid arthritis CT reviewed 1. The area of pulmonary airspace disease in the right middle lobe has a more retracted appearance on the current exam than the 08/06/2016 CT scan and could represent resolving pneumonia. Clinical correlation is advised. In an asymptomatic patient, follow-up chest CT scan in 3-4 months may be considered to ensure complete imaging resolution. 2. Interval development of a small subsegmental groundglass opacity in the lingula, could be atelectatic in nature. This area can also be followed by the follow-up CT scan. Plan - TRC/Nebs - Can switch to by mouth prednisone 60 mg and taper every 3 days until reach her rheumatological dose (stop at 10mg and have balance sheet analyst f/u) - will need f/u imaging within 8 wks - mucinex - cont RA drugs - ok for dc from respiratory perspective DVT prophylaxis at all times
[2016-08-29] MEDS ORDERED: OMEPRAZOLE20 M2 PO (11:35)
--- NOTE | 2016-08-31 18:13 | Discharge Summary ---
Visit Information Visit Dates Admission Date: 08/24/16 Discharge Date: 08/29/16 Hospital Course Course Attending Physician: JANEE DUKE M.D Primary Care Physician: BETZY ABDUL,[facility] Hospital Course: Patient is 61-year-old female with past medical history significant for asthma, anxiety, hypothyroidism, depression, severe rheumatoid arthritis recently treated at [facility] for pneumonia and asthma exacerbation came with persistent shortness of breath and respiratory distress along with wheezing. Most likely her symptoms are due to asthma exacerbation versus slowly resolving pneumonia. Patient was managed in the general medical floor for the following issues: #Acute exacerbation of asthma Patient came in with complaints of shortness of breath, and was diagnosed with acute exacerbation of asthma. She received IV steroids, total respiratory care, nebulizations, per my consultation. Patient improved with all the medication/ care in hospital and was discharged on slow tapering dose of oral steroids. Of note, she takes 7.5 mg of oral prednisone daily for rheumatoid arthritis. Thus when her tapering steroid dose reaches 10 mg daily, she needs to visit her track laying supervisor to discuss about steroid dose. Patient was managed off antibiotic. She needs reimaging as a follow-up in 8 weeks per pulmonary consultation. She also requires a follow-up with pulmonary medicine after discharge. #History of rheumatoid arthritis Home medications for rheumatoid arthritis and pain were continued. Of note, patient did not have Humira as inpatient, informed us that someone whould bring it from her home, but did not until the day of discharge, so did not receive it during the stay in hospital. Medications for rheumatoid arthritis on her chart except for oral steroid which is being tapered due to asthma exacerbation. She needs follow-up with track laying supervisor after discharge. #Prolonged QTc interval -Avoided QTC prolonging medications, such as ondansetron, haloperidol. #Continued home medication for anxiety, depression, GERD #Pain management: Increased dose of Percocet with 10/325 #She received Regular diet #DVT prophylaxis was done with Lovenox #She holds a full code status. Allergies: Coded Allergies: cat dander (UNKNOWN 08/31/15) Significant Procedures: Chest CT: IMPRESSION: 1. The area of pulmonary airspace disease in the right middle lobe has a more retracted appearance on the current exam than the 08/06/2016 CT scan and could represent resolving pneumonia. Clinical correlation is advised. In an asymptomatic patient, follow-up chest CT scan in 3-4 months may be considered to ensure complete imaging resolution. 2. Interval development of a small subsegmental groundglass opacity in the lingula, could be atelectatic in nature. This area can also be followed by the follow-up CT scan. DICTATED BY: MIREILLE BARLOW MD DATE/TIME DICTATED:08/26/161858 TURRET PRESS OPERATOR:JACKELYN DATE/TIME TRANSCRIBED:08/26/161858 Disposition Summary Disposition Principal Diagnosis: Asthma exacerbation Additional Diagnosis: anxiety, hypothyroidism, depression, severe rheumatoid arthritis requiring prednisone 7.5 mg daily, recent admission at the hospital for pneumonia and asthma exacerbation Discharge Disposition: home or self care Discharge Instructions General Discharge Information Code Status: Full Code Patient's Diet: Regular diet, heart healthy Patient's Activity: As tolerated Follow-Up Instructions/Appts: Please visite your primary care physician within 7 days of discharge. Please visit your remodeler within 7 days of discharge. You need of follow- up imaging of the chest to check resolution within 8 weeks of discharge. Your steroids doses have been changed. Please take prednisone in a tapering manner as prescribed. Start taking your regular dose of prednisone 5 mg only after the tapering has stopped as prescribed. Please call us if you have any questions/confusion. Please return to emergency if symptoms worsen. Medications at Discharge Discharge Medications: Continue taking these medications: Clonazepam (Clonazepam) 0.5 MG TABLET 1 Tablet ORAL TWICE DAILY Qty = 7 Comments: Last Taken:08/29/13 Time: 0900AM Zolpidem Tartrate (Zolpidem Tartrate) 5 MG TABLET 1 Tablet ORAL Every night Qty = 30 Comments: Last Taken:08/28/16 Time:2100 Ranitidine (Ranitidine HCl) 150 MG TABLET 1 Tablet ORAL as needed for GI Qty = 30 Comments: NOT GIVEN Lamotrigine (Lamotrigine) 200 MG TABLET 1 Tablet ORAL DAILY Qty = 5 Comments: Last Taken: 08/29/16 Time:0900AM Venlafaxine HCl (Venlafaxine HCl ER) 225 MG TAB.ER.24 225 Milligram ORAL DAILY Qty = 30 Comments: Last Taken: 08/29/16 Time: 0900AM Adalimumab (Humira) 40 MG/0.8 ML SYRINGEKIT 40 Milligram Inject into fatty tissue EVERY 2 WEEKS Qty = 2 Comments: Last Taken:08/28/16 Time:2100 Hydroxychloroquine Sulfate (Hydroxychloroquine Sulfate) 200 MG TABLET 1 Tablet ORAL TWICE DAILY Qty = 60 Comments: Last Taken:08/29/16 Time:0900 Leflunomide (Arava) 20 MG TABLET 1 Tablet ORAL TWICE DAILY Qty = 30 Comments: Last Taken:08/29/16 Time:0900 Levothyroxine Sodium (Levothyroxine Sodium) 50 MCG TABLET 1 Tablet ORAL DAILY Qty = 30 Comments: Last Taken: 08/29/16 Time: 0600AM Sulfasalazine (Sulfasalazine) 500 MG TABLET 1 Tablet ORAL TWICE DAILY Qty = 60 Comments: Last Taken:08/29/16 Time: 0900 Methadone HCl (Methadone Intensol) 10 MG/ML ORAL.CONC 95 Milligram ORAL DAILY Comments: Last Taken: 08/29/16 Time: 0900 Albuterol Sulfate (Albuterol Sulfate) 2.5 MG/3 ML (0.083 %) VIAL.NEB 3 Milliliters Inhale through mouth EVERY SIX HOURS as needed for ASTHMA CONTROL Qty = 1 Instructions: TAKE 4X DAY DAILY FOR ONE WEEK AND THEN USE NECESSARY Comments: Last Taken;08/29/16 Time: 0800 Oxycodone HCl/Acetaminophen (Percocet 7.5-325 MG Tablet) 7.5 MG-325 MG TABLET 1 Tablet ORAL TWICE DAILY Qty = 30 Comments: Last Taken:08/29/16 Time:0900 Start taking the following new medications: Prednisone (Prednisone) 10 MG TABLET 1 Tablet ORAL SEE INSTRUCTIONS Qty = 65 No Refills Instructions: TAKE 6 TABS ON 08/30- 09/01, then TAKE 5 TABS ON 09/02- 09/04, then TAKE 4 TABS ON 09/05- 09/07, then TAKE 3 TABS ON 09/08- 09/10, then TAKE 2 TABS ON 09/11- 09/13, then TAKE 1 TAB FROM 09/14 ONWARDS DAILY, UNTIL YOU MEET YOUR COSTUME CUTTER. Comments: Last Taken:08/29/16 Time:1000 Omeprazole (Omeprazole) 20 MG CAPSULE. 20 Milligram ORAL DAILY BEFORE BREAKFAST Qty = 15 No Refills Comments: Last Taken:08/28/16 Time:0600 Copies To: BETZY ABDUL,GREGORY Nevarez MD Review Statement Documenting Attending: JANEE DUKE M.D Other Findings: I have reviewed the discharge summary
== END 2016-08-29 11:54 | DRG 141 ==
LOC: ERH 14:04 → 2NA 20:10 → ERHI 20:10 → 2NA 22:05
PROVIDERS: Internal Medicine; Physician Assistant; ADMIT Internal Medicine
DX: J45.901 Unspecified asthma with (acute) exacerbation (principal); E03.9 Hypothyroidism, unspecified; F41.9 Anxiety disorder, unspecified; F32.9 Major depressive disorder, single episode, unspecified; M06.9 Rheumatoid arthritis, unspecified; G89.29 Other chronic pain; K21.9 Gastro-esophageal reflux disease without esophagitis
CPT/HCPCS: 2NASP; 81025; 82436; 93005; 93010; 94644; 94645; 96374; 96375; J1650; J2920; J2930

== ENCOUNTER 2016-09-05 10:15 | Emergency (ER) | payer OTHER ==
[~2016-09-05] VITALS: Ht 160 cm; Wt 68.0 kg
[~2016-09-05 10:15] MED LIST changes: +OMEPRAZOLE20 M2 PO; +PREDNISONE5 M1 PO
[2016-09-05 10:18] VITALS: BP 136/94
--- NOTE | 2016-09-05 11:09 | ED GENERAL ADULT ---
History of Present Illness General Chief Complaint: General Adult Stated Complaint: BRUISING TO BUTTOCKS Source: patient Exam Limitations: no limitations Vital Signs & Intake/Output Vital Signs & Intake/Output Vital Signs Date Time Temp Pulse Resp B/P B/P Pulse O2 O2 Flow FiO2 Mean Ox Delivery Rate 09/05 1135 96 Room Air 09/05 1018 96.5 82 14 136/94 96 Room Air Allergies Coded Allergies: cat dander (UNKNOWN 08/31/15) Triage Note: 41 Y/O FEMALE C/O "BRUISING TO MY BUTTOCKS BUT LIKE INSIDE TO THE BACK"; PT DENIES ANY INJURIES OR TRAUMA STATING SHE FIRST NOTICED IT TODAY. DENIES PAIN. DENIES OTHER COMPLAINTS. Triage Nurses Notes Reviewed? yes Onset: Gradual Duration: day(s): (1) Timing: no prior history Injury Environment: home Severity: mild No Modifying Factors: none : No Patient currently breastfeeds: No HPI: Patient is a 41-year-old female presenting to the emergency department with chief complaint bruising to buttocks times one day. She percent she noticed it today. Denies any pain. Denies any known injury. She reports chronic issues with constipation and chronic external hemorrhoids. Denies any nausea vomiting fevers or chills chest pain or shortness of breath. No abdominal pain. Denies taking anything to help with symptoms. Denying any pain. No urinary or fecal incontinence or retention. (NIGEL COMER,JHON) Reconcile Medications Adalimumab (Humira) 40 MG/0.8 ML SYRINGEKIT 40 MG SC Q2W RA (Reported) Albuterol Sulfate 2.5 MG/3 ML (0.083 %) VIAL.NEB 3 ML INH Q6 PRN ASTHMA CONTROL TAKE 4X DAY DAILY FOR ONE WEEK AND THEN USE NECESSARY Clonazepam 0.5 MG TABLET 1 TAB PO BID ANXIETY (Reported) Hydrocortisone (Anusol-Hc) 2.5 % CREAM..G. 1 SHAMEKA TOP BID PRN hemorrhoid apply to affected area(s) Hydroxychloroquine Sulfate 200 MG TABLET 1 TAB PO BID RA (Reported) Lamotrigine 200 MG TABLET 1 TAB PO DAILY MENTAL HEALTH (Reported) Leflunomide (Arava) 20 MG TABLET 1 TAB PO BID RA (Reported) Levothyroxine Sodium 50 MCG TABLET 1 TAB PO DAILY AC THYROID (Reported) Methadone HCl (Methadone Intensol) 10 MG/ML ORAL.CONC 95 MG PO DAILY MAINTENCE (Reported) Omeprazole 20 MG CAPSULE.DR 20 MG PO DAILY AC GI, HYPERACIDITY Oxycodone HCl/Acetaminophen (Percocet 7.5-325 MG Tablet) 7.5 MG-325 MG TABLET 1 TAB PO BID RA (Reported) Ranitidine (Ranitidine HCl) 150 MG TABLET 1 TAB PO PRN GI (Reported) Sulfasalazine 500 MG TABLET 1 TAB PO BID RA (Reported) Venlafaxine HCl (Venlafaxine HCl ER) 225 MG TAB.ER.24 225 MG PO DAILY MENTAL HEALTH (Reported) Zolpidem Tartrate 5 MG TABLET 1 TAB PO QPM SLEEP (Reported) (JUNIE MELLO DO) Past History Travel History Traveled to [place] past 21 day No Medical History Any Pertinent Medical History? see below for history Neurological: NONE EENT: NONE Cardiovascular: NONE Respiratory: asthma Gastrointestinal: NONE Hepatic: NONE Renal: NONE Musculoskeletal: rheumatoid arthritis Psychiatric: NONE Endocrine: hypothyroidism Blood Disorders: NONE Cancer(s): NONE TELEPHONE DIAPHRAGM ASSEMBLER/Reproductive: NONE History of MRSA: No History of VRE: No History of CDIFF: No Surgical History Surgical History: appendectomy Psychosocial History Who do you live with Daughter Services at Home None What is your primary language [place]guillan Tobacco Use: Never used Family History Family History, If Any: Relation not specified for: *No pertinent family history Hx Contributory? No (JHON DIALLO) Review of Systems Review of Systems Constitutional: Reports: no symptoms. Comments Review of systems: See HPI, All other systems negative. Constitutional, no chills fever or weight loss HEENT: No visual changes no sore throat no congestion Cardiovascular: No chest pain ,palpitation , orthopnea or ankle swelling Skin, no jaundice no rashes Respiratory: No dyspnea cough sputum or hemoptysis GI: No nausea no vomiting : No dysuria No hematuria Muscle skeletal: no back pain, no neck pain, Neurologic: No numbness no confusion, no headaches Psych: No stress anxiety or depression,. Heme/endocrine: no polyuria or polydipsia, no history of bruising or bleeding easily Immunology: No splenectomy or history of AIDS (JHON DIALLO) Physical Exam Physical Exam General Appearance: well developed/nourished, no apparent distress, alert, awake , comfortable Comments: Well-developed well-nourished person in no acute distress HEENT: Pupils equally round and reactive to light and accommodation. Nose is atraumatic. Neck: Normal inspection Back: Nontender, no CVA tenderness. Cardiovascular: normal JVP Respiratory: No respiratory distress. Abdomen: Soft, nontender Rectal: External hemorrhoid approximately 1 cm in size noted at the 4 o'clock position. There is ecchymotic region approximate 4 cm and AMR noted on the right inner gluteal fold. Nontender to palpation. Flat. Non-blanchable. Extremity: No edema Neuro: Alert oriented x3 Skin: See rectal exam otherwise No appreciable rash on exposed skin, skin is warm and dry. Psych: Mood and affect is normal, memory and judgment is normal. Core Measures ACS in differential dx? No CVA/TIA Diagnosis: No Severe Sepsis Present: No Septic Shock Present: No (JHON DIALLO) Progress Differential Diagnoses I considered the following diagnoses in my evaluation of the patient: Contusion , external hemorrhoid, anemia, leukopenia Plan of Care: Likely isolated contusion. Patient will be treated symptomatically with warm compresses. Educated on using Anusol to help with external hemorrhoid. She'll follow up with PCP. Initial ED EKG: none (JHON DIALLO) Departure Departure Time of Disposition: 1120 Disposition: HOME OR SELF CARE Condition: Stable Clinical Impression Primary Impression: Contusion Qualifiers: Encounter type: initial encounter Contusion area: thoracic wall Contusion of thoracic wall detail: unspecified area of thoracic wall Qualified Code: S20.20XA - Contusion of thorax, unspecified, initial encounter Referrals: GREGORY BO MD (PCP/Family) Additional Instructions: Follow-up with your primary care physician called me appointment. Apply warm compresses to affected area. Apply Anusol to external hemorrhoids. Return for worsening symptoms or concerns. Departure Forms: Customer Survey General Discharge Information Prescriptions: Current Visit Scripts Hydrocortisone (Anusol-Hc) 1 SHAMEKA TOP BID PRN hemorrhoid #30 GM apply to affected area(s) (JHON DIALLO) PA/ACTING TEACHER Co-Sign Statement Statement: ED Attending supervision documentation- [] I saw and evaluated the patient. I have also reviewed all the pertinent lab results and diagnostic results. I agree with the findings and the plan of care as documented in the PA's/ACTING TEACHER's documentation. [X] I have reviewed the ED Record and agree with the PA's/ACTING TEACHER's documentation. [] Additions or exceptions (if any) to the PAs/ACTING TEACHER's note and plan are summarized below: [] (FUNMILAYO SUNSHINE,JUNIE Carpenter) Critical Care Note Critical Care Note Critical Care Time: non-applicable (NIGEL COMER,JHON)
[2016-09-05] MEDS ORDERED: ANUSOL-HC30 GM TOP (11:22)
== END 2016-09-05 11:40 ==
LOC: ERH 10:15
DX: S30.0XXA Contusion of lower back and pelvis, initial encounter (principal); K64.4 Residual hemorrhoidal skin tags; X58.XXXA Exposure to other specified factors, initial encounter; Y93.9 Activity, unspecified; Y92.009 Unspecified place in unspecified non-institutional (private) residence as the place of occurrence of the external cause

== ENCOUNTER 2017-04-29 10:15 | Emergency (ER) | payer OTHER ==
[~2017-04-29] VITALS: Ht 160 cm; Wt 63.5 kg
[~2017-04-29 10:15] MED LIST changes: +ANUSOL-HC30 GM TOP; +CLONAZEPAM1 M2 PO; +GUAIFENESIN ER600 MG PO; +HYDROCORTISO453.6 G1 TOP; +LAMICTAL200 M1 PO; +LAMOTRIGINE25 M3 PO; +OXYCODONE HCL5 M1 PO; +VENLAFAXINE HC150 MG PO
[2017-04-29 10:56] VITALS: BP 166/88
--- NOTE | 2017-04-29 11:54 | ED SKIN/ALLERGY COMPLAINT ---
History of Present Illness General Chief Complaint: Skin Rash/ Abcess Stated Complaint: RASH ALL OVER Source: patient Exam Limitations: no limitations Vital Signs & Intake/Output Vital Signs & Intake/Output Vital Signs Date Time Temp Pulse Resp B/P B/P Pulse O2 O2 Flow FiO2 Mean Ox Delivery Rate 04/29 1056 97.9 80 18 166/88 98 Room Air Allergies Coded Allergies: cat dander (UNKNOWN 08/31/15) Reconcile Medications Albuterol Sulfate 2.5 MG/3 ML (0.083 %) VIAL.NEB 3 ML INH Q6 PRN ASTHMA CONTROL TAKE 4X DAY DAILY FOR ONE WEEK AND THEN USE NECESSARY Clobetasol Propionate 0.05 % CREAM..G. 1 SHAMEKA TOP BID ATOPIC DERM apply to affected area(s) Clonazepam 1 MG TABLET 1 TAB PO BID PRN ANXIETY (Reported) Folic Acid 1 MG TABLET 1 TAB PO DAILY SUPPLEMENT (Reported) Guaifenesin (Guaifenesin ER) 600 MG TAB.ER.12H 1 TAB PO Q12 CHEST CONGESTION . Hydrocortisone 1 % CREAM..G. 1 SHAMEKA TOP BID ECZEMA .apply to affected area(s) Hydroxychloroquine Sulfate 200 MG TABLET 1 TAB PO BID RA (Reported) Lamotrigine 25 MG TABLET 1 TAB PO DAILY MENTAL HEALTH (Reported) Lamotrigine (Lamictal) 25 MG TABLET 1 TAB PO BID PSYCH Leflunomide (Arava) 20 MG TABLET 1 TAB PO BID RA (Reported) Levothyroxine Sodium 50 MCG TABLET 1 TAB PO DAILY AC THYROID (Reported) Methadone HCl (Methadone Intensol) 10 MG/ML ORAL.CONC 45 MG PO DAILY MAINTENCE (Reported) Oxycodone HCl 5 MG TABLET 1 TAB PO TID PRN PAIN (Reported) Prednisone 10 MG TABLET 1 TAB PO D ATOPIC DERM Prednisone 10 MG TABLET 1 TAB PO DAILY ASTHMA . Venlafaxine HCl (Venlafaxine HCl ER) 150 MG CAP.ER.24H 1 CAP PO DAILY MENTAL HEALTH (Reported) last taken 02/22 9am Venlafaxine HCl (Venlafaxine HCl ER) 150 MG CAP.ER.24H 1 CAP PO DAILY PSYCH Zolpidem Tartrate 5 MG TABLET 1 TAB PO QPM SLEEP (Reported) Triage Note: PT COMPLAINS OF BLISTERS AND DRY PATCHES OF SKIN RASH WITH PAIN TO MULTIPLE AREA OF BODY, STTAES THAT SHE HAS A LOT OF PAIN TO HER FEET WHEN SHE WALKS , DECLINES MEDS AT TRIAGE, TOOK TYLENOL AT HOME. ALSO STATES THAT HER HANDS ARE PEELING FROM IT , STATES THAT THEY START BLISTERS SHE POPS THEM AND THEY KEEP CPMING BACK . Triage Nurses Notes Reviewed? yes Onset: Gradual Duration: week(s): (few) Timing: recent history Severity: mild, moderate No Modifying Factors: none Associated Symptoms: itching : No Patient currently breastfeeds: No HPI: This is a 41 year old female presents to the ER for evaluation of rash and legs that won't go away, also requesting a refill for her psychiatric medications. She states that the rash it itchy and embarassing and she ran out of the previous medicine for it. SHe denies any fever, chills, recent travel or IV drug use. Denies any immune compromise. Past History Travel History Traveled to [place] past 21 day No Medical History Any Pertinent Medical History? see below for history Neurological: NONE EENT: NONE Cardiovascular: NONE Respiratory: asthma Gastrointestinal: NONE Hepatic: NONE Renal: NONE Musculoskeletal: rheumatoid arthritis Psychiatric: anxiety, depression Endocrine: hypothyroidism Blood Disorders: NONE Cancer(s): NONE NURSE CLINICAL/Reproductive: NONE History of MRSA: No History of VRE: No History of CDIFF: No Surgical History Surgical History: appendectomy Psychosocial History Who do you live with Daughter Services at Home None What is your primary language Comoran Tobacco Use: Never used ETOH Use: denies use Illicit Drug Use: denies illicit drug use Family History Family History, If Any: MOTHER Unknown family medical history, Onset: left as child. FATHER FH: chronic renal insufficiency FH: diabetes mellitus Relation not specified for: *No pertinent family history Hx Contributory? No Review of Systems Review of Systems Constitutional: Denies: chills, fever. EENTM: Reports: no symptoms. Respiratory: Denies: cough, short of breath. Cardiovascular: Denies: chest pain, palpitations. GI: Denies: abdominal pain, nausea, vomiting. Genitourinary: Reports: no symptoms. Musculoskeletal: Reports: no symptoms. Skin: Reports: rash. Neurological/Psychological: Reports: anxiety, emotional problems. Denies: confusion. Hematologic/Endocrine: Denies: bruising, bleeding, polyuria, polydipsia. Immunologic/Allergic: Denies: splenectomy. All Other Systems: Reviewed and Negative Physical Exam Physical Exam General Appearance: alert, awake, anxious, mild distress, thin Head: atraumatic Eyes: Bilateral: PERRL, EOMI. Ears, Nose, Throat: normal pharynx, normal ENT inspection, hearing grossly normal Neck: normal inspection, supple Respiratory: normal breath sounds Cardiovascular: regular rate/rhythm Peripheral Pulses: 2+ radial (R), 2+ radial (L) Gastrointestinal: soft, non-tender Back: normal inspection Extremities: normal inspection, normal range of motion, no edema Neurologic/Psych: no motor/sensory deficits, awake, alert, oriented x 3, ANXIOUS , FLIGHT OF IDEAS Skin: intact, normal color, warm/dry Skin Problem Location: lower extremities, SOLES, PALMS Skin Problem Character: patchy, scales, thickening Lymphatic: no anterior cervical jerry Progress Differential Diagnosis: allergic reaction, contact dermatitis, PSORIASIS, SYPHYLLIS Plan of Care: Orders Procedure Date/time Status VDRL 04/29 120 Active COMPREHENSIVE METABOLIC PANEL 04/29 120 Complete CBC WITHOUT DIFFERENTIAL 04/29 1202 Complete Laboratory Tests 04/29/17 1220: Anion Gap 14, Estimated GFR > 60, BUN/Creatinine Ratio 13.3, Glucose 118 H, Calcium 9.4, Total Bilirubin 0.6, AST 26, ALT 32, Alkaline Phosphatase 93, Total Protein 7.5, Albumin 4.0, Globulin 3.5, Albumin/Globulin Ratio 1.1, CBC w Diff NO MAN DIFF REQ, RBC 5.32, MCV 84.5, MCH 28.2, RDW 13.0, MPV 8.4, Gran % 68.5, Lymphocytes % 23.0, Monocytes % 5.0, Eosinophils % 3.0, Basophils % 0.5, Absolute Granulocytes 5.1, Absolute Lymphocytes 1.7, Absolute Monocytes 0.4, Absolute Eosinophils 0.2, Absolute Basophils 0, PUBS MCHC 33.3, RPR Titer/FTA Pending RASH CONSISTENT WITH CONTACT DERMATITIS/? PSORIAIS. LABS DONE WNL. VDRL/RPR PENDING. MEDICATIONS REFILLED. TOLD TO FOLLOW UP WITH APPLICATION PACKAGING SPECIALIST THROUGH HER INSURANCE. Departure Departure Time of Disposition: 1316 Disposition: HOME OR SELF CARE Condition: Stable Clinical Impression Primary Impression: Dermatitis Referrals: Bryan Chris APRN (PCP/Family) Additional Instructions: WAITER/WAITRESS ROOM SERVICE YOUR MEDICATIONS FROM THE PHARMACY AND FOLLOW UP WITH A PSYCHIATRIST AND ALSO REQUEST A REFERRAL TO A APPLICATION PACKAGING SPECIALIST WHICH YOUR STATE INSURANCE ACCEPTS YOU WILL GET A CALL BACK FOR ANY FURTHER POSITIVE TESTING Departure Forms: Customer Survey General Discharge Information Prescriptions: Current Visit Scripts Venlafaxine HCl (Venlafaxine HCl ER) 1 CAP PO DAILY #30 CAP Lamotrigine (Lamictal) 1 TAB PO BID #30 TAB Prednisone 1 TAB PO D #10 TAB Clobetasol Propionate 1 SHAMEKA TOP BID #60 GM apply to affected area(s)
[2017-04-29] MEDS ORDERED: LAMICTAL25 M1 PO (12:09)
[2017-04-29] MEDS ORDERED: VENLAFAXINE HC150 MG PO (12:09)
[2017-04-29] MEDS ORDERED: PREDNISONE10 M2 PO (12:09)
[2017-04-29] MEDS ORDERED: CLOBETASOL PROP15 GM TOP (12:09)
[2017-04-29 12:26] LABS: ABSOLUTE BASOPHIL COUNT 0 /CUMM (0.0-0.2); ABSOLUTE EOSINOPHIL COUNT 0.2 /CUMM (0.0-0.7); ABSOLUTE GRANULOCYTE CT 5.1 /CUMM (1.4-6.5); ABSOLUTE LYMPH COUNT 1.7 /CUMM (1.2-3.4); ABSOLUTE MONOCYTE COUNT 0.4 /CUMM (0.10-0.60); BASOPHIL % 0.5 % (0.0-2.0); GRANULOCYTE % 68.5 % (42.2-75.2); MEAN CORPUSCULAR HGB 28.2 PG (27.0-31.0); MEAN CORPUSCULAR HGB CONC 33.3 G/DL (33.0-37.0); MEAN CORPUSCULAR VOLUME 84.5 FL (81.0-99.0); MEAN PLATELET VOLUME 8.4 FL (7.4-10.4); PLATELET COUNT 339 /CUMM (130-400); RED BLOOD CELL CT 5.32 /CUMM (4.20-5.40); WHITE BLOOD CELL COUNT 7.4 /CUMM (4.8-10.8)
== END 2017-04-29 13:26 ==
LOC: ERH 10:15
PROVIDERS: Emergency Medicine
DX: L30.9 Dermatitis, unspecified (principal)
CPT/HCPCS: 96372; J1885

== ENCOUNTER 2017-05-27 05:33 | Inpatient (IN) | payer OTHER ==
[~2017-05-27] VITALS: Ht 160 cm; Wt 64.4 kg
[~2017-05-27 05:33] MED LIST changes: +CLOBETASOL PROP15 GM TOP; +LAMICTAL25 M1 PO
--- NOTE | 2017-05-27 05:41 | ED DYSPNEA/ASTHMA COMPLAINT ---
History of Present Illness General Chief Complaint: Wheezing/Asthma Stated Complaint: DIFF BREATHING, HX OF ASTHMA Source: patient Exam Limitations: no limitations Vital Signs & Intake/Output Vital Signs & Intake/Output Vital Signs Date Time Temp Pulse Resp B/P B/P Pulse O2 O2 Flow FiO2 Mean Ox Delivery Rate 05/27 818 98.4 80 26 130/68 96 Aerosol Mask 05/27 814 94 Nasal 2.0L Cannula 05/27 602 91 05/27 553 93 Room Air 05/27 549 98.4 90 18 150/40 94 Room Air Allergies Coded Allergies: cat dander (UNKNOWN 08/31/15) Reconcile Medications Albuterol Sulfate 2.5 MG/3 ML (0.083 %) VIAL.NEB 3 ML INH Q6 PRN ASTHMA CONTROL TAKE 4X DAY DAILY FOR ONE WEEK AND THEN USE NECESSARY Clobetasol Propionate 0.05 % CREAM..G. 1 SHAMEKA TOP BID ATOPIC DERM apply to affected area(s) Clonazepam 1 MG TABLET 1 TAB PO BID PRN ANXIETY (Reported) Folic Acid 1 MG TABLET 1 TAB PO DAILY SUPPLEMENT (Reported) Guaifenesin (Guaifenesin ER) 600 MG TAB.ER.12H 1 TAB PO Q12 CHEST CONGESTION . Hydrocortisone 1 % CREAM..G. 1 SHAMEKA TOP BID ECZEMA .apply to affected area(s) Hydroxychloroquine Sulfate 200 MG TABLET 1 TAB PO BID RA (Reported) Lamotrigine 25 MG TABLET 1 TAB PO DAILY MENTAL HEALTH (Reported) Lamotrigine (Lamictal) 25 MG TABLET 1 TAB PO BID PSYCH Leflunomide (Arava) 20 MG TABLET 1 TAB PO BID RA (Reported) Levothyroxine Sodium 50 MCG TABLET 1 TAB PO DAILY AC THYROID (Reported) Methadone HCl (Methadone Intensol) 10 MG/ML ORAL.CONC 45 MG PO DAILY MAINTENCE (Reported) Oxycodone HCl 5 MG TABLET 1 TAB PO TID PRN PAIN (Reported) Prednisone 10 MG TABLET 1 TAB PO D ATOPIC DERM Prednisone 10 MG TABLET 1 TAB PO DAILY ASTHMA . Venlafaxine HCl (Venlafaxine HCl ER) 150 MG CAP.ER.24H 1 CAP PO DAILY MENTAL HEALTH (Reported) last taken 02/22 9am Venlafaxine HCl (Venlafaxine HCl ER) 150 MG CAP.ER.24H 1 CAP PO DAILY PSYCH Zolpidem Tartrate 5 MG TABLET 1 TAB PO QPM SLEEP (Reported) Triage Nurses Notes Reviewed? yes Onset: Gradual Duration: day(s): Timing: recent history Severity: moderate Activities at Onset: none Prior Episodes/Possible Cause: occasional episodes Modifying Factors: Improves With: rest. Associated Symptoms: cough, wheezing HPI: 41 yo woman h/o asthma, presents with cough, wheezing, scant phlegm x 3 days. "I've been using my albuterol puffers but it hasn't been helping." She notes her cough has mostly been dry. She has no fever, chills, dizziness. She is otherwise well. (Lana ABDUL,Nate Forte) Past History Travel History Traveled to [place] past 21 day No Medical History Any Pertinent Medical History? see below for history Neurological: NONE EENT: NONE Cardiovascular: NONE Respiratory: asthma Gastrointestinal: NONE Hepatic: NONE Renal: NONE Musculoskeletal: rheumatoid arthritis Psychiatric: anxiety, depression Endocrine: hypothyroidism Blood Disorders: NONE Cancer(s): NONE PLUMBING DRAFTER/Reproductive: NONE History of MRSA: No History of VRE: No History of CDIFF: No Surgical History Surgical History: appendectomy Psychosocial History Who do you live with Daughter Services at Home None What is your primary language Brazilian Family History Family History, If Any: MOTHER Unknown family medical history, Onset: left as child. FATHER FH: chronic renal insufficiency FH: diabetes mellitus Relation not specified for: *No pertinent family history Hx Contributory? No (Lana ABDUL,Nate Forte) Review of Systems Review of Systems Constitutional: Reports: no symptoms. EENTM: Reports: no symptoms. Respiratory: Reports: no symptoms. Cardiovascular: Reports: no symptoms. GI: Reports: no symptoms. Genitourinary: Reports: no symptoms. Musculoskeletal: Reports: no symptoms. Skin: Reports: no symptoms. Neurological/Psychological: Reports: no symptoms. Hematologic/Endocrine: Reports: no symptoms. Immunologic/Allergic: Reports: no symptoms. All Other Systems: Reviewed and Negative (Lana ABDUL,Nate Forte) Physical Exam Physical Exam General Appearance: well developed/nourished, moderate distress Head: atraumatic, normal appearance Eyes: Bilateral: normal appearance, PERRL, EOMI. Ears, Nose, Throat: normal pharynx, normal ENT inspection Neck: normal inspection, supple, full range of motion, JVD Respiratory: wheezing, respiratory distress, prolonged expiratory phase Cardiovascular: regular rate/rhythm Gastrointestinal: normal bowel sounds, soft, non-tender Extremities: normal inspection, normal capillary refill Neurologic/Psych: no motor/sensory deficits, awake, alert, oriented x 3 Skin: intact, normal color, warm/dry Core Measures ACS in differential dx? No CVA/TIA Diagnosis No Sepsis Present: No Sepsis Focused Exam Completed? No (Lana ABDUL,Nate Forte) Progress Differential Diagnosis: asthma, bronchitis, CHF, COPD, pneumonia Plan of Care: Orders Procedure Date/time Status Regular Diet 05/27 L Active Patient Data 05/27 846 Active ED Holding Orders 05/27 841 Active Admit to inpatient 05/27 841 Active Vital Signs 05/27 841 Active Code Status 05/27 841 Active URINALYSIS 05/27 803 Active RAPID VIRAL INFLUENZA A 05/27 755 Complete Intake & Output 05/27 720 Active TROPONIN LEVEL 05/27 547 Complete HUMAN BETA HCG SCREEN 05/27 547 Complete D-DIMER 05/27 547 Complete COMPREHENSIVE METABOLIC PANEL 05/27 547 Complete CBC WITHOUT DIFFERENTIAL 05/27 547 Complete EKG 05/27 547 Active Current Medications Sig/Carlos Start time Last Medication Dose Stop Time Status Admin Magnesium Sulfate 1 GM ONCE ONE 05/27 0800 AC 05/27 (Mag Sulfate in D5) 05/27 1159 0758 Dextrose/Water 100 ML (D5W) Magnesium Sulfate 1 GM Q2H 05/27 0715 AC 05/27 (Mag Sulfate in D5) 05/27 1114 0749 Dextrose/Water 100 ML (D5W) Laboratory Tests 05/27/17 0600: Anion Gap 14, Estimated GFR > 60, BUN/Creatinine Ratio 11.7, Glucose 84, Calcium 9.3, Total Bilirubin 0.7, AST 19, ALT 26, Alkaline Phosphatase 98, Troponin I < 0.01, Total Protein 6.9, Albumin 3.6, Globulin 3.3, Albumin/Globulin Ratio 1.1, Total Beta HCG NEGATIVE, D-Dimer High Sensitivty 218, CBC w Diff NO MAN DIFF REQ , RBC 5.11, MCV 84.4, MCH 27.7, MCHC 32.8 L, RDW 13.6, MPV 8.3, Gran % 57.6, Lymphocytes % 25.3, Monocytes % 7.8, Eosinophils % 8.7 H, Basophils % 0.6, Absolute Granulocytes 5.7, Absolute Lymphocytes 2.5, Absolute Monocytes 0.8 H, Absolute Eosinophils 0.9, Absolute Basophils 0.1 Microbiology 05/27 829 NASOPHARYN: Influenza Virus A & B Rapid Smear - COMP 7:10 am patient signed out to me pending labs, reevaluation. 7:48 AM Patient still in distress, magnesium infusing. Respiratory called to start urgent treatment. Patient will require admission to the hospital. 8:30 AM HOSPITALIST PAGED. (Laura Roca MD) Diagnostic Imaging: Viewed by Me: Radiology Read. Discussed w/RAD: Radiology Read. Initial ED EKG: normal axis, normal intervals, normal p-waves, normal QRS complex, normal sinus rhythm Hand-Off Endorsed To: Laura Roca MD Endorsed Time: 0700 Pending: labs, Xray (Lana ABDUL,Nate Forte) CXR Impression: PATIENT: BRENDA ANGULO PRESENT AGE: 41 PATIENT ACCOUNT NO: [id number] : 77 LOCATION: [facility] ORDERING PHYSICIAN: Nate Schwartz MD SERVICE DATE: 05/27/17 EXAM TYPE: RAD - XRY-CHEST XRAY, TWO VIEWS EXAMINATION: XR CHEST CLINICAL INFORMATION: Hypoxia, wheezing. COMPARISON: 02/21/2017 TECHNIQUE: 2 views of the chest were obtained. FINDINGS: Cardiac and mediastinal silhouette is stable. There is peribronchial thickening in right lower lobe, unchanged from previous. No new focal consolidation. No effusion, edema pneumothorax. No acute osseous abnormality. IMPRESSION: Peribronchial thickening in the right lower lobe, similar to previous. No significant interval change. No evidence of acute process. DICTATED BY: Royal Dubose MD DATE/TIME DICTATED:05/27/17723 BARREL POLISHER INSIDE:JACKELYN DATE/TIME TRANSCRIBED:05/27/17723 CONFIDENTIAL, DO NOT COPY WITHOUT APPROPRIATE AUTHORIZATION. <Electronically signed in Other Vendor System> SIGNED BY: Royal Dubose MD 05/27/17815 (Laura Roca MD) Departure Departure Disposition: STILL A PATIENT Condition: Stable Referrals: Bryan Chris APRN (PCP/Family) Departure Forms: Customer Survey General Discharge Information (Lana ABDUL,Nate Forte) Departure Time of Disposition: 925 Clinical Impression Primary Impression: Status asthmaticus Admission Note Spoke With: Billie ABDUL,Wallace Akhtar Documentation of Exam: Documentation of any treatments & extenuating circumstances including Concerns Regarding Discharge (functional status, medication knowledge or non-compliance, living conditions, etc.) that warrant an admission rather than observation: [TRC /NEBS, IV SOLUMEDROL, OXYGEN SUPPORT, PULMONARY CONSULTATION, MONITOR I/O] (Abelino ABDUL,Laura) Critical Care Note Critical Care Note Critical Care Time: non-applicable (Lana ABDUL,Nate Forte) Critical Care Note Critical Care Time: 30-74 min (Laura Roca MD)
[2017-05-27 06:30] LABS: ABSOLUTE BASOPHIL COUNT 0.1 /CUMM (0.0-0.2); ABSOLUTE EOSINOPHIL COUNT 0.9 /CUMM (0.0-0.7); ABSOLUTE GRANULOCYTE CT 5.7 /CUMM (1.4-6.5); ABSOLUTE LYMPH COUNT 2.5 /CUMM (1.2-3.4); ABSOLUTE MONOCYTE COUNT 0.8 /CUMM (0.10-0.60); BASOPHIL % 0.6 % (0.0-2.0); EOSINOPHIL % 8.7 % (0-5); GRANULOCYTE % 57.6 % (42.2-75.2); HEMATOCRIT 43.1 % (37-47); MEAN CORPUSCULAR HGB 27.7 PG (27.0-31.0); MEAN CORPUSCULAR HGB CONC 32.8 G/DL (33.0-37.0); MEAN CORPUSCULAR VOLUME 84.4 FL (81.0-99.0); MEAN PLATELET VOLUME 8.3 FL (7.4-10.4); PLATELET COUNT 291 /CUMM (130-400); RBC DISTRIBUTION WIDTH 13.6 % (11.5-14.5); RED BLOOD CELL CT 5.11 /CUMM (4.20-5.40); WHITE BLOOD CELL COUNT 9.8 /CUMM (4.8-10.8)
--- NOTE | 2017-05-27 08:16 | RADIOLOGY REPORT ---
EXAMINATION: XR CHEST CLINICAL INFORMATION: Hypoxia, wheezing. COMPARISON: 02/21/2017 TECHNIQUE: 2 views of the chest were obtained. FINDINGS: Cardiac and mediastinal silhouette is stable. There is peribronchial thickening in right lower lobe, unchanged from previous. No new focal consolidation. No effusion, edema pneumothorax. No acute osseous abnormality. IMPRESSION: Peribronchial thickening in the right lower lobe, similar to previous. No significant interval change. No evidence of acute process.
--- NOTE | 2017-05-27 10:03 | History & Physical ---
MelvinManohar 05/27/17 0942: General Information and HPI MD Statement: I have seen and personally examined BRENDA ANGULO and documented this H&P. The patient is a 41 year old F who presented with a patient stated chief complaint of shortness of breath. Source of Information: patient Exam Limitations: no limitations History of Present Illness: 41 year old woman with history of asthma, frequent exacerbations, last in 2016, history of rheumatoid arthritis (previously on chronic glucocorticoids, stopped recently), hypothyroidism on levothyroxine, anxiety and depression presents to [facility] ED with 3 day history of worsening shortness of breath. Patient uses only albuterol inhaler at home, and over the course of last 3 days she almost finished her inhaler. She denies any recent exposure to animal dander or any other allergens. She does endorse to regular exposure to secondhand smoke (boyfriend), but she herself denies smoking. She denies any recent exposure to sick contacts or any recent upper respiratory symptoms. She denies any cough, no expectoration. No recent fevers or chills. 3 asthma exacerbations over the course of last 8 months. Never intubated. After her last exacerbation in February, patient was supposed to see Dr. Rowell, however, she missed the appointment and never saw him. Asthma history - Well controlled since February. During that time, no frequent nocturnal awakenings and no more than 2 episodes a week, perhaps less. Upon arrival to the ED, her lowest documented O2 sats were 91%. During the interview, she is able to speak in full sentences; although does intermittently use her accessory muscles. Other systems reviewed and negative except as above. Allergies/Medications Allergies: Coded Allergies: cat dander (UNKNOWN 08/31/15) Home Med list Albuterol Sulfate 2.5 MG/3 ML (0.083 %) VIAL.NEB 3 ML INH Q6 PRN ASTHMA CONTROL TAKE 4X DAY DAILY FOR ONE WEEK AND THEN USE NECESSARY Clobetasol Propionate 0.05 % CREAM..G. 1 SHAMEKA TOP BID ATOPIC DERM apply to affected area(s) Clonazepam 1 MG TABLET 1 TAB PO BID PRN ANXIETY (Reported) Folic Acid 1 MG TABLET 1 TAB PO DAILY SUPPLEMENT (Reported) Guaifenesin (Guaifenesin ER) 600 MG TAB.ER.12H 1 TAB PO Q12 CHEST CONGESTION . Hydrocortisone 1 % CREAM..G. 1 SHAMEKA TOP BID ECZEMA .apply to affected area(s) Hydroxychloroquine Sulfate 200 MG TABLET 1 TAB PO BID RA (Reported) Lamotrigine 25 MG TABLET 1 TAB PO DAILY MENTAL HEALTH (Reported) Lamotrigine (Lamictal) 25 MG TABLET 1 TAB PO BID PSYCH Leflunomide (Arava) 20 MG TABLET 1 TAB PO BID RA (Reported) Levothyroxine Sodium 50 MCG TABLET 1 TAB PO DAILY AC THYROID (Reported) Methadone HCl (Methadone Intensol) 10 MG/ML ORAL.CONC 45 MG PO DAILY MAINTENCE (Reported) Oxycodone HCl 5 MG TABLET 1 TAB PO TID PRN PAIN (Reported) Prednisone 10 MG TABLET 1 TAB PO D ATOPIC DERM Prednisone 10 MG TABLET 1 TAB PO DAILY ASTHMA . Venlafaxine HCl (Venlafaxine HCl ER) 150 MG CAP.ER.24H 1 CAP PO DAILY MENTAL HEALTH (Reported) last taken 02/22 9am Venlafaxine HCl (Venlafaxine HCl ER) 150 MG CAP.ER.24H 1 CAP PO DAILY PSYCH Zolpidem Tartrate 5 MG TABLET 1 TAB PO QPM SLEEP (Reported) Past History Travel History Traveled to [place] past 21 day No Medical History Neurological: NONE EENT: NONE Cardiovascular: NONE Respiratory: asthma Gastrointestinal: NONE Hepatic: NONE Renal: NONE Musculoskeletal: rheumatoid arthritis Psychiatric: anxiety, depression Endocrine: hypothyroidism Blood Disorders: NONE Cancer(s): NONE TRANSPORTATION DESIGN ENGINEER/Reproductive: NONE History of MRSA: No History of VRE: No History of CDIFF: No Surgical History Surgical History: appendectomy Past Family/Social History Family History Relations & Conditions if any MOTHER Unknown family medical history, Onset: left as child. FATHER FH: chronic renal insufficiency FH: diabetes mellitus Relation not specified for: *No pertinent family history Psychosocial History Services at Home: None Primary Language: Kyrgyz Functional Ability ADLs Independent: dressing, eating, toileting, bathing. Ambulation: independent IADLs Independent: shopping, housework, finances, food prep, telephone, transportation , medication admin. Review of Systems Review of Systems Constitutional: Reports: see HPI. Exam & Diagnostic Data Last 24 Hrs of Vital Signs/I&O Vital Signs Date Time Temp Pulse Resp B/P B/P Pulse O2 O2 Flow FiO2 Mean Ox Delivery Rate 05/27 0819 98.4 80 26 130/68 96 Aerosol Mask 05/27 0815 94 Nasal 2.0L Cannula 05/27 0603 91 05/27 0554 93 Room Air 05/27 0550 98.4 90 18 150/40 94 Room Air Intake & Output 05/27 1600 05/27 0800 05/27 0000 Intake Total 0 Output Total Balance 0 Intake, Oral 0 Patient 140 lb Weight Weight Reported by Patient Measurement Method Physical Exam General Appearance Alert, Oriented X3, Cooperative, Mild Distress Skin Temp/Moisture Exam: Warm/Dry HEENT Atraumatic, PERRLA, EOMI Neck Supple, No JVD Cardiovascular Regular Rate, Normal S1, Normal S2 Lungs diffuse inspiratory and expiratory wheezes. Coarse breath sounds likely secondary to retained tracheal secretions. Abdomen Normal Bowel Sounds, Soft Extremities No Clubbing, No Cyanosis, No Edema Last 24 Hrs of Labs/Shreyas: Laboratory Tests 05/27/17 0600: Anion Gap 14, Estimated GFR > 60, BUN/Creatinine Ratio 11.7, Glucose 84, Calcium 9.3, Total Bilirubin 0.7, AST 19, ALT 26, Alkaline Phosphatase 98, Troponin I < 0.01, Total Protein 6.9, Albumin 3.6, Globulin 3.3, Albumin/Globulin Ratio 1.1, Total Beta HCG NEGATIVE, D-Dimer High Sensitivty 218, CBC w Diff NO MAN DIFF REQ , RBC 5.11, MCV 84.4, MCH 27.7, MCHC 32.8 L, RDW 13.6, MPV 8.3, Gran % 57.6, Lymphocytes % 25.3, Monocytes % 7.8, Eosinophils % 8.7 H, Basophils % 0.6, Absolute Granulocytes 5.7, Absolute Lymphocytes 2.5, Absolute Monocytes 0.8 H, Absolute Eosinophils 0.9, Absolute Basophils 0.1 Microbiology 05/27 829 NASOPHARYN: Influenza Virus A & B Rapid Smear - COMP Diagnostic Data EKG Results Sinus rhythm. Normal QTC. CXR Results IMPRESSION: Peribronchial thickening in the right lower lobe, similar to previous. No significant interval change. No evidence of acute process. Assessment/Plan Assessment: 41-year-old woman with childhood asthma, recent frequent exacerbations, nonsmoker here with 3 day history of asthma exacerbation to be admitted to general medicine floor. Low probabilty for PE; Well's = 0. 1. Asthma exacerbation: TRC nebs, inhaled beta agonists. Flu swab negative. Sputum culture if able. IV glucocorticoids, transition to PO soon. Antitussives when necessary. Peak flow measurement. Supplemental oxygen to keep oxygen sats per the 92%. Patient needs outpatient follow-up with conveyor operator to better billing manager frequent exacerbations and have an asthma action plan. Of note, patient has failed to maintain an outpatient appointment with Dr. Rowell in the past. 2. Rheumatoid arthritis. Not currently on chronic glucocorticoid therapy. Continue current medications-hydroxychloroquine, Arava for rheumatoid disease. 3. Hypothyroidism. Continue levothyroxine. 4. Opiate dependence. Continue methadone. As Ranked By This Provider Problem List: 1. Asthma exacerbation Core Measures/Misc (01/06) Acute Coronary Syndrome ACS Diagnosis: No Congestive Heart Failure Congestive Heart Failure Diagnosis No Cerebrovascular Accident CVA/TIA Diagnosis: No VTE (View Protocol) VTE Risk Factors No risk factors No Mechanical VTE Prophylaxis d/t N/A MechProphylax Ordered No VTE Pharm Prophylaxis d/t NA PharmProphylax ordered Sepsis (View protocol) Sepsis Present: No Sundeep Ray 05/27/17 1533: Attending MD Review Statement Attending Statement Attending MD Statement: examined this patient, discuss w/resident/PA/IBM WEBSPHERE PORTAL DEVELOPER, agreed w/resident/PA/[employer] WEBSPHERE PORTAL DEVELOPER, discussed with family, reviewed EMR data (avail), discussed with nursing, discussed with case mgmt, reviewed images, amended to note Attending Assessment/Plan: Patient admitted for asthma exacerbation. Patient started on iv steroids, bronchodilators, oxygen supplementation prn, resume home meds. gi/dvt prophylaxis full code.
[2017-05-27 19:51] VITALS: BP 130/84
[2017-05-28 05:26] VITALS: BP 122/60
--- NOTE | 2017-05-28 08:42 | PN- Housestaff ---
JoseRadha Bert Ware 05/28/17 0835: Subjective Follow-up For: #Asthma exacerbation #RA #Hypothyroidism #Opiate dependence Subjective: No overnight event. Patient was sleeping under room air when I entered. Review of Systems Constitutional: Reports: see HPI. Objective Last 24 Hrs of Vital Signs/I&O Vital Signs Date Time Temp Pulse Resp B/P B/P Pulse O2 O2 Flow FiO2 Mean Ox Delivery Rate 05/28 0526 97.4 92 22 122/60 98 Room Air 05/28 0024 Nasal 2.0L Cannula 05/27 2230 Nasal 2.0L Cannula 05/27 1951 98.2 81 20 130/84 92 Room Air 05/27 1827 98.6 77 16 120/81 92 Room Air 05/27 1616 97.2 75 18 122/83 92 Room Air 05/27 1413 98.0 80 20 118/78 96 Room Air / 1237 97.2 80 20 152/84 95 Room Air 05/27 1042 98.4 84 22 124/76 94 Nasal 2.0L Cannula Intake & Output 05/28 1600 05/28 0800 05/28 0000 Intake Total 480 480 Output Total Balance 480 480 Intake, Oral 480 480 Patient 64.41 kg Weight Weight Reported by Patient Measurement Method Physical Exam General Appearance: Alert, Oriented X3, Cooperative, No Acute Distress Cardiovascular: Regular Rate Lungs: Normal Air Movement, Bilateral expiratory wheeze. Current Medications: Current Medications Sig/Carlos Start time Last Medication Dose Route Stop Time Status Admin Acetaminophen 650 MG Q6P PRN 05/27 0930 AC PO Albuterol Sulfate 3 ML TID 05/28 1000 AC 05/27 INH 2100 Albuterol Sulfate 3 ML Q6P PRN 05/27 0945 AC INH Clobetasol Propionate 1 SHAMEKA BID 05/27 1000 AC 05/27 TOP 2224 Clonazepam 0 .STK-MED ONE 05/27 1316 DC PO Clonazepam 1 MG BID PRN 05/27 0945 AC 05/27 PO 06/03 0944 2222 Enoxaparin Sodium 40 MG DAILY 05/27 1000 AC SC Folic Acid 1 MG DAILY 05/27 1000 AC 05/27 PO 1133 Guaifenesin 600 MG Q12 05/27 1000 AC 05/27 PO 2223 Hydrocortisone 1 SHAMEKA BID 05/27 1000 AC 05/27 TOP 2224 Hydroxychloroquine 200 MG BID 05/27 1000 AC Sulfate PO Ibuprofen 600 MG Q6P PRN 05/27 0930 AC PO Lamotrigine 200 MG DAILY 05/27 2359 AC 05/28 PO 0137 Lamotrigine 25 MG DAILY 05/27 1000 CAN PO Lamotrigine 25 MG BID 05/27 1000 DC 05/27 PO 1133 Leflunomide 20 MG DAILY 05/27 1100 AC 05/27 PO 1133 Levothyroxine Sodium 0.05 MG DAILY AC 05/27 0939 AC 05/28 PO 0437 Magnesium Sulfate 1 GM ONCE ONE 05/27 0800 DC 05/27 Dextrose/Water 100 ML IV 05/27 1159 0758 Magnesium Sulfate 1 GM Q2H 05/27 0715 DC 05/27 Dextrose/Water 100 ML IV 05/27 1114 0749 Methadone HCl 65 MG DAILY 05/28 1000 AC PO Methadone HCl 0 .STK-MED ONE 05/27 1317 DC PO Methadone HCl 0 .STK-MED ONE 05/27 1317 DC PO Methadone HCl 65 MG ONCE ONE 05/27 1245 DC 05/27 PO 05/27 1246 1326 Methadone HCl 45 MG DAILY 05/27 1000 CAN PO Methylprednisolone 40 MG Q12 05/27 1000 AC 05/27 IV 06/01 2201 2223 Non-Formulary 0 SEE ADMIN CRITERIA 05/27 0845 CAN Medication ANY Oxycodone HCl 5 MG TIDPRN PRN 05/27 0945 AC 05/27 PO 2222 Oxycodone/ 1 TAB Q6P PRN 05/27 0930 DC Acetaminophen PO Prednisone 10 MG DAILY 05/27 1000 DC 05/27 PO 1133 Venlafaxine HCl 150 MG 0800 05/28 0800 DC PO Venlafaxine HCl 150 MG 0800 05/28 0800 CAN PO Venlafaxine HCl 300 MG 0800 05/28 0800 DC PO Venlafaxine HCl 150 MG 0800 05/28 0800 AC PO Zolpidem Tartrate 5 MG QPM 05/27 2200 AC 05/28 PO 0137 Assessment/Plan Assessment: 41-year-old woman with childhood asthma, recent frequent exacerbations, nonsmoker here with 3 day history of asthma exacerbation to be admitted to general medicine floor. Low probabilty for PE; Well's = 0. Patient was admitted to general medicine for following managements. #Asthma exacerbation: Flu swab negative. - TRC nebs, inhaled beta agonists, under RA now. - Sputum culture if able. - Switched to PO Prednisone 60mg qd, will taper per clinical conditions. - Peak flow measurement pending. - Patient needs outpatient follow-up with police radio dispatcher to better manager trust frequent exacerbations and have an asthma action plan. - Of note, patient has failed to maintain an outpatient appointment with Dr. Rowell in the past. #Rheumatoid arthritis. Not currently on chronic glucocorticoid therapy. - Continue current medications-hydroxychloroquine, Arava for rheumatoid disease. #Hypothyroidism. - Continue levothyroxine. #Opiate dependence. - Continue methadone. DVT PPX Lovenox + ALPS Regular Diet Full Code Problem List: 1. Status asthmaticus 2. Rheumatoid arthritis 3. Asthma exacerbation Pain Ratin Pain Location: NA Pain Goal: Remain pain free Pain Plan: see AP Tomorrow's Labs & Rationales: Sundeep Barragan 05/28/17 1526: Attending MD Review Statement Attending Statement Attending MD Statement: examined this patient, discuss w/resident/PA/TEXTILE COLORIST FORMULATOR, agreed w/resident/PA/TEXTILE COLORIST FORMULATOR, discussed with family, reviewed EMR data (avail), discussed with nursing, discussed with case mgmt, reviewed images, amended to note Attending Assessment/Plan: Patient seen/examined bedside. Patient still have b/l wheezing, minimal use of accessory muscles, O2 supplementation prn. Continue taper PO steroids, needs ENT referral as outpatient. Patient is ambualtory for dvt prophyalxis.
[2017-05-28 09:43] LABS: ABSOLUTE BASOPHIL COUNT 0 /CUMM (0.0-0.2); ABSOLUTE EOSINOPHIL COUNT 0 /CUMM (0.0-0.7); ABSOLUTE GRANULOCYTE CT 11.2 /CUMM (1.4-6.5); ABSOLUTE LYMPH COUNT 0.9 /CUMM (1.2-3.4); ABSOLUTE MONOCYTE COUNT 0.3 /CUMM (0.10-0.60); BASOPHIL % 0.1 % (0.0-2.0); EOSINOPHIL % 0 % (0-5); HEMATOCRIT 40.3 % (37-47); MEAN CORPUSCULAR HGB 27.8 PG (27.0-31.0); MEAN CORPUSCULAR VOLUME 84.4 FL (81.0-99.0); MEAN PLATELET VOLUME 8.6 FL (7.4-10.4); PLATELET COUNT 267 /CUMM (130-400); RBC DISTRIBUTION WIDTH 13.8 % (11.5-14.5); RED BLOOD CELL CT 4.77 /CUMM (4.20-5.40); WHITE BLOOD CELL COUNT 12.4 /CUMM (4.8-10.8)
--- NOTE | 2017-05-28 14:06 | Event Note ---
Event Note Event Note: Patient was concerned regarding methadone detox inpatient in seek of shorter detox duration. I've discussed patient's case with Psych consult over the phone, and agreed that we could not proceed inpatient methadone detox here. Patient was explained regarding this outcome. A list of outpatient detox facility was provided to her from CRISIS team. Would appreciate social sciences professor consult.
[2017-05-28 14:23] VITALS: BP 140/82
[2017-05-28] MEDS ORDERED: LAMICTAL100 M2 PO (14:51)
[2017-05-28] MEDS ORDERED: PREDNISONE10 M2 PO (14:51)
--- NOTE | 2017-05-28 14:53 | Patient Discharge Instructions ---
Discharge Instructions General Discharge Information You were seen/treated for: #Asthma exacerbation #Rheumatoid Arthritis #Hypothyroidism #Opiate dependence on Methadone 65mg daily Special Instructions: - Please follow up with outpatient psych service for Methadone detox within 1-2 week of discharge. - Please follow up with your primary care physician within 1-2 week of discharge. Inform your primary care physician of this admission to [facility]. - Continue your current medications per discharge instructions. - Please watch for these problems: Fever, Chills, Nausea, Vomiting, Shortness of Breath, Productive Cough, Chest Pain/Discomfort, Abdominal Pain, Active Bleeding or Bloody urine/stool. Diet Continue normal diet: Yes Activity Full Activity/No Limits: Yes Acute Coronary Syndrome Inclusion Criteria At DC or during hospital stay patient has or had the following: ACS DIAGNOSIS No Discharge Core Measures Meds if any: Prescribed or Continued at Discharge Meds if any: NOT Prescribed or Continued at Discharge Congestive Heart Failure Inclusion Criteria At DC or during hospital stay patient has or had the following: CHF DIAGNOSIS No Discharge Core Measures Meds if any: Prescribed or Continued at Discharge Meds if any: NOT Prescribed or Continued at Discharge Cerebrovascular accident Inclusion Criteria At DC or during hospital stay patient has or had the following: CVA/TIA Diagnosis No Discharge Core Measures Meds if any: Prescribed or Continued at Discharge Meds if any: NOT Prescribed or Continued at Discharge Venous thromboembolism Inclusion Criteria VTE Diagnosis No VTE Type NONE VTE Confirmed by (Test) NONE Discharge Core Measures - Per Current guidelines, there needs to be overlap - treatment for the first 5 days of Warfarin therapy. - If discharged on Warfarin prior to 5 days of - overlap therapy, the patient will need to be - assessed for post discharge needs including - *Post discharge parental anticoagulation - *Warfarin and/or parental anticoagulation education - *Follow up date to check INR post discharge At least 5 days overlap therapy as Inpatient No Meds if any: Prescribed or Continued at Discharge Note: Overlap Therapy is Warfarin and Anticoagulant Meds if any: NOT Prescribed or Continued at Discharge
--- NOTE | 2017-05-28 14:54 | Discharge Summary ---
Visit Information Visit Dates Admission Date: 05/27/17 Discharge Date: 05/30/2017 Hospital Course Course Attending Physician: Sundeep Ray MD Primary Care Physician: Bryan Chris APRN Hospital Course: 41-year-old woman with childhood asthma, recent frequent exacerbations, nonsmoker here with 3 day history of asthma exacerbation to be admitted to general medicine floor. Patient uses only albuterol inhaler at home, and over the course of last 3 days she almost finished her inhaler without much improvement. She denied any recent exposure to animal dander or any other allergens. She endorsed to regular exposure to secondhand smoke (boyfriend), but she herself denied smoking. She denied any recent exposure to sick contacts or any recent upper respiratory symptoms, cough, expectoration, fever, or chills. Patient had 3 asthma exacerbations over the course of last 8 months, but she was never intubated. After her last exacerbation in February, patient was supposed to see Dr. Rowell, however, she missed the appointment and had never seen him. Upon admission, patient remained afebrile without leukocytosis, no acute interval change on CXR compared to last, and unremarkable lab findings. Patient was put on TRC/Neb/Supplemental O2 receieved IV steroid in ER. Patient's dose of Methadone was confired to be at 65mg daily with [employer]. Patient was admitted to general medicine for following managements. #Asthma exacerbation: Patient had rapid Flu negative on admission. Patient was started on TRC nebs, inhaled beta agonists, and supplemental oxygen. Patient was given IV solumedrol and then transitioned to oral prednisone 60mg and continued on tapering per clinical conditions. Patient would need outpatient follow-up with winding inspector and tester to better marketing intelligence manager frequent exacerbations and have an asthma action plan. Of note, patient has failed to maintain an outpatient appointment with Dr. Rowell in the past. #Rheumatoid arthritis. Patient is not currently on chronic glucocorticoid therapy. Patient was continued on current medications including home dose of hydroxychloroquine, Arava for rheumatoid disease. #Hypothyroidism. Patient was continued on home dose of Levothyroxine. #Opiate dependence. Patient was continued methadone 65mg daily confirmed by [employer] on admission. Patient was given a list for outpatient methadone detox facilities for further outpatient follow up.. #ENT complaint Patient was referred to [facility] for ENT follow up. DVT PPX Lovenox + ALPS Regular Diet Full Code Allergies: Coded Allergies: cat dander (UNKNOWN 08/31/15) Pertinent Lab Results: SERVICE DATE: 05/27/17 EXAM TYPE: RAD - XRY-CHEST XRAY, TWO VIEWS IMPRESSION: Peribronchial thickening in the right lower lobe, similar to previous. No significant interval change. No evidence of acute process. Disposition Summary Disposition Principal Diagnosis: #Asthma exacerbation #Rheumatoid Arthritis #Hypothyroidism #Opiate dependence on Methadone 65mg daily Additional Diagnosis: As Above Discharge Disposition: home or self care Discharge Instructions General Discharge Information Code Status: Full Code Patient's Diet: Regular Patient's Activity: As tolerated Follow-Up Instructions/Appts: - Please follow up with outpatient psych service for Methadone detox within 1-2 week of discharge. - Please follow up with your primary care physician within 1-2 week of discharge. Inform your primary care physician of this admission to [facility]. - Continue your current medications per discharge instructions. - Please watch for these problems: Fever, Chills, Nausea, Vomiting, Shortness of Breath, Productive Cough, Chest Pain/Discomfort, Abdominal Pain, Active Bleeding or Bloody urine/stool. Medications at Discharge Discharge Medications: Stop taking the following medications: Oxycodone HCl (Oxycodone HCl) 5 MG TABLET ORAL THREE TIMES DAILY as needed for PAIN Qty = 21 Venlafaxine HCl (Venlafaxine HCl ER) 150 MG CAP.ER.24H ORAL DAILY Qty = 30 Lamotrigine (Lamotrigine) 25 MG TABLET ORAL DAILY Qty = 30 Prednisone (Prednisone) 10 MG TABLET ORAL DAILY Qty = 10 Lamotrigine (Lamictal) 25 MG TABLET ORAL TWICE DAILY Qty = 30 Continue taking these medications: Zolpidem Tartrate (Zolpidem Tartrate) 5 MG TABLET 1 Tablet ORAL Every night Qty = 30 Comments: Last Taken: 05/29/17 Time: 930 PM Hydroxychloroquine Sulfate (Hydroxychloroquine Sulfate) 200 MG TABLET 1 Tablet ORAL TWICE DAILY Qty = 60 Comments: NOT GIVEN IN HOSPITAL Leflunomide (Arava) 20 MG TABLET 1 Tablet ORAL TWICE DAILY Qty = 30 Comments: Last Taken: 05/30/17 Time: 1000 AM Levothyroxine Sodium (Levothyroxine Sodium) 50 MCG TABLET 1 Tablet ORAL DAILY BEFORE BREAKFAST Qty = 30 Comments: Last Taken: 05/30/17 Time: 600 AM Methadone HCl (Methadone Intensol) 10 MG/ML ORAL.CONC 45 Milligram ORAL DAILY Comments: Last Taken: 05/30/17 Time: 1000 AM Albuterol Sulfate (Albuterol Sulfate) 2.5 MG/3 ML (0.083 %) VIAL.NEB 3 Milliliters Inhale through mouth EVERY SIX HOURS as needed for ASTHMA CONTROL Qty = 1 Instructions: TAKE 4X DAY DAILY FOR ONE WEEK AND THEN USE NECESSARY Comments: Last Taken: 02/22 Time: 9am Clonazepam (Clonazepam) 1 MG TABLET 1 Tablet ORAL TWICE DAILY as needed for ANXIETY Comments: Last Taken: 05/30/17 Time: 1000 AM Folic Acid (Folic Acid) 1 MG TABLET 1 Tablet ORAL DAILY Comments: Last Taken: 05/30/17 Time: 1000 AM Guaifenesin (Guaifenesin ER) 600 MG TAB.ER.12H 1 Tablet ORAL EVERY 12 HOURS Qty = 15 Instructions: . Comments: Last Taken: 05/30/17 Time: 1000 AM Hydrocortisone (Hydrocortisone) 1 % CREAM..G. 1 Application On the skin TWICE DAILY Qty = 2 Instructions: .apply to affected area(s) Comments: Last Taken: 05/30/17 Time: 1000 AM Venlafaxine HCl (Venlafaxine HCl ER) 150 MG CAP.ER.24H 1 Capsule ORAL DAILY Qty = 30 Comments: Last Taken: 05/30/17 Time: 1000 AM Clobetasol Propionate (Clobetasol Propionate) 0.05 % CREAM..G. 1 Application On the skin TWICE DAILY Qty = 60 Instructions: apply to affected area(s) Comments: Last Taken: 05/30/17 Time: 1000 AM Start taking the following new medications: Lamotrigine (Lamictal) 100 MG TABLET 200 Milligram ORAL DAILY Qty = 20 No Refills Instructions: .. Comments: Last Taken: 05/30/17 Time: 1000 AM Prednisone (Prednisone) 10 MG TABLET 1 Tablet ORAL SEE INSTRUCTIONS Qty = 30 No Refills Instructions: . Comments: 05/31-06/01: Take 5 tablets, once daily 06/02-06/03: Take 4 tablets, once daily 06/04-06/05: Take 3 tablets, once daily 06/06-06/07: Take 2 tablets, once daily 06/08-06/09: Take 1 tablet, once daily Last Taken: 05/30/17 Time: 1000 AM Budesonide/Formoterol Fumarate (Symbicort 80-4.5 Mcg Inhaler) 80 MCG-4.5 MCG/ ACTUATION HFA.AER.AD 2 Puff Inhale through mouth TWICE DAILY Qty = 10.2 No Refills Comments: NOT GIVEN IN HOSPITAL Copies To: Bryan Chris APRN Attending MD Review Statement Documenting Attending: Sundeep Ray MD
[2017-05-28 21:58] VITALS: BP 124/90
[2017-05-29 07:01] VITALS: BP 140/86
--- NOTE | 2017-05-29 07:30 | PN- Housestaff ---
See Addendum Subjective Follow-up For: #Asthma exacerbation #RA #Hypothyroidism #Opiate dependence Subjective: No overnighte event. Patient denied any specific complaint or difficulty breathing overnight, currently on room air. Review of Systems Constitutional: Reports: see HPI. Objective Last 24 Hrs of Vital Signs/I&O Vital Signs Date Time Temp Pulse Resp B/P B/P Pulse O2 O2 Flow FiO2 Mean Ox Delivery Rate 05/29 700 97.5 66 20 140/86 96 05/29 0000 Room Air 05/28 2158 97.8 73 20 124/90 97 Room Air 05/28 1953 97 Room Air 05/28 1600 Room Air 05/28 1423 98.1 75 20 140/82 93 Room Air 05/28 0920 93 Room Air Intake & Output 05/29 1600 05/29 0800 05/29 0000 Intake Total 240 800 Output Total Balance 240 800 Intake, Oral 240 800 Physical Exam General Appearance: Alert, Oriented X3, Cooperative, No Acute Distress Cardiovascular: Regular Rate Lungs: Clear to Auscultation, Normal Air Movement Abdomen: Soft, No Tenderness Extremities: No Edema, Normal Pulses Current Medications: Current Medications Sig/Carlos Start time Last Medication Dose Route Stop Time Status Admin Acetaminophen 650 MG Q6P PRN 05/27 0930 AC PO Albuterol Sulfate 3 ML TID 05/28 1000 AC 05/28 INH 1949 Albuterol Sulfate 3 ML Q6P PRN 05/27 0945 AC INH Clobetasol Propionate 1 SHAMEKA BID 05/27 1000 AC 05/28 TOP 2110 Clonazepam 1 MG BID PRN 05/27 0945 AC 05/28 PO 06/03 0944 1704 Enoxaparin Sodium 40 MG DAILY 05/27 1000 AC SC Folic Acid 1 MG DAILY 05/27 1000 AC 05/28 PO 0851 Guaifenesin 600 MG Q12 05/27 1000 AC 05/28 PO 2109 Hydrocortisone 1 SHAMEKA BID 05/27 1000 AC 05/28 TOP 2110 Hydroxychloroquine 200 MG BID 05/27 1000 AC 05/28 Sulfate PO 0851 Ibuprofen 600 MG Q6P PRN 05/27 0930 AC PO Lamotrigine 200 MG DAILY 05/27 2359 AC 05/28 PO 0852 Leflunomide 20 MG DAILY 05/27 1100 AC 05/28 PO 0856 Levothyroxine Sodium 0.05 MG DAILY AC 05/27 0939 AC 05/29 PO 0641 Methadone HCl 65 MG DAILY 05/28 1000 AC 05/28 PO 0855 Methylprednisolone 40 MG Q12 05/27 1000 DC 05/28 IV 06/01 2200 0854 Oxycodone HCl 5 MG TIDPRN PRN 05/27 0945 AC 05/29 PO 0643 Patient Medication 1 ED ONE ONE 05/28 1245 DC Teaching ED 05/28 1246 Prednisone 60 MG DAILY 05/28 1000 AC PO 05/30 2300 Venlafaxine HCl 150 MG 0800 05/28 0800 AC 05/28 PO 0851 Zolpidem Tartrate 5 MG QPM 05/27 2200 AC 05/28 PO 2109 Last 24 Hrs of Lab/Shreyas Results Last 24 Hrs of Labs/Mics: Laboratory Tests 05/28/17 0835: Anion Gap 13, Estimated GFR > 60, BUN/Creatinine Ratio 32.0 H, CBC w Diff NO MAN DIFF REQ, RBC 4.77, MCV 84.4, MCH 27.8, MCHC 33.0, RDW 13.8, MPV 8.6, Gran % 90.0 H, Lymphocytes % 7.4 L, Monocytes % 2.5, Eosinophils % 0, Basophils % 0.1 , Absolute Granulocytes 11.2 H, Absolute Lymphocytes 0.9 L, Absolute Monocytes 0.3, Absolute Eosinophils 0, Absolute Basophils 0 Assessment/Plan Assessment: 41-year-old woman with childhood asthma, recent frequent exacerbations, nonsmoker here with 3 day history of asthma exacerbation to be admitted to general medicine floor. Low probabilty for PE; Well's = 0. Patient was admitted to general medicine for following managements. #Asthma exacerbation: Flu swab negative. - TRC nebs, inhaled beta agonists, under RA now. - Sputum culture if able. - Switched to PO Prednisone 60mg qd, will continue taper after discharge. - Peak flow measurement pending. - Patient needs outpatient follow-up with hydraulic press operator to better integrated logistics operations manager frequent exacerbations and have an asthma action plan. - Of note, patient has failed to maintain an outpatient appointment with Dr. Rowell in the past. #Rheumatoid arthritis. Not currently on chronic glucocorticoid therapy. - Continue current medications-hydroxychloroquine, Arava for rheumatoid disease. #Hypothyroidism. - Continue levothyroxine. #Opiate dependence. - Continue methadone. DVT PPX Lovenox + ALPS Regular Diet Full Code Problem List: 1. Rheumatoid arthritis 2. Asthma exacerbation Pain Ratin Pain Location: NA Pain Goal: Remain pain free Pain Plan: see AP Tomorrow's Labs & Rationales: NA
[2017-05-29] MEDS ORDERED: PREDNISONE10 M2 PO (14:52)
[2017-05-29] MEDS ORDERED: LAMICTAL100 M2 PO (14:52)
[2017-05-29 14:54] VITALS: BP 144/80
[2017-05-29 22:07] VITALS: BP 162/98
--- NOTE | 2017-05-30 07:35 | PN- Housestaff ---
Radha Garcia Bert Ware 05/30/17 0734: Subjective Follow-up For: Asthma Exacerbation Rhematoid arthritis Methadone dependence. Subjective: No overnight event. Patient felt improved today overall. Review of Systems Constitutional: Reports: see HPI. Objective Last 24 Hrs of Vital Signs/I&O Vital Signs Date Time Temp Pulse Resp B/P B/P Pulse O2 O2 Flow FiO2 Mean Ox Delivery Rate 05/30 0000 Room Air 05/29 2207 97.8 60 18 162/98 95 Room Air 05/29 1902 97 Room Air Room Air 05/29 1454 97.8 70 20 144/80 94 Room Air 05/29 1056 97 Room Air 05/29 0800 Room Air Intake & Output 05/30 0800 05/30 0000 05/29 1600 Intake Total 240 240 500 Output Total Balance 240 240 500 Intake, Oral 240 240 500 Physical Exam General Appearance: Alert, Oriented X3, Cooperative, No Acute Distress Cardiovascular: Regular Rate Lungs: Clear to Auscultation, Normal Air Movement Abdomen: Normal Bowel Sounds, Soft, No Tenderness Neurological: Normal Speech Extremities: No Edema, Normal Pulses Current Medications: Current Medications Sig/Carlos Start time Last Medication Dose Route Stop Time Status Admin Acetaminophen 650 MG Q6P PRN 05/27 0930 AC PO Albuterol Sulfate 3 ML TID 05/28 1000 AC 05/29 INH 1900 Albuterol Sulfate 3 ML Q6P PRN 05/27 0945 AC INH Clobetasol Propionate 1 SHAMEKA BID 05/27 1000 AC 05/29 TOP 2131 Clonazepam 1 MG BID PRN 05/27 0945 AC 05/29 PO 06/03 0944 2136 Enoxaparin Sodium 40 MG DAILY 05/27 1000 AC SC Folic Acid 1 MG DAILY 05/27 1000 AC 05/29 PO 0936 Guaifenesin 600 MG Q12 05/27 1000 AC 05/29 PO 2131 Hydrocortisone 1 SHAMEKA BID 05/27 1000 AC 05/29 TOP 2131 Hydroxychloroquine 200 MG BID 05/27 1000 AC 05/28 Sulfate PO 0851 Ibuprofen 600 MG Q6P PRN 05/27 0930 AC PO Lamotrigine 200 MG DAILY 05/27 2359 AC 05/29 PO 0935 Leflunomide 20 MG DAILY 05/27 1100 AC 05/29 PO 0937 Levothyroxine Sodium 0.05 MG DAILY AC 05/27 0939 AC 05/30 PO 0601 Methadone HCl 65 MG DAILY 05/28 1000 AC 05/29 PO 0935 Oxycodone HCl 5 MG TIDPRN PRN 05/27 0945 AC 05/29 PO 2136 Prednisone 60 MG DAILY 05/28 1000 AC 05/29 PO 05/30 2300 0935 Venlafaxine HCl 150 MG 0800 05/28 0800 AC 05/29 PO 0936 Zolpidem Tartrate 5 MG QPM 05/27 2200 AC 05/29 PO 2139 Assessment/Plan Assessment: 41-year-old woman with childhood asthma, recent frequent exacerbations, nonsmoker here with 3 day history of asthma exacerbation to be admitted to general medicine floor. Low probabilty for PE; Well's = 0. Patient was admitted to general medicine for following managements. #Asthma exacerbation: Flu swab negative. - TRC nebs, inhaled beta agonists, under RA now. - Sputum culture if able. - Switched to PO Prednisone 60mg qd, will continue taper w/ Prednisoneafter discharge. Pending discharge today. - Patient needs outpatient follow-up with process improvement specialist Dr. Rowell to better resort manager frequent exacerbations and have an asthma action plan. - Of note, patient has failed to maintain an outpatient appointment with Dr. Rowell in the past. #Rheumatoid arthritis. Not currently on chronic glucocorticoid therapy. - Continue current medications-hydroxychloroquine, Arava for rheumatoid disease. #Hypothyroidism. - Continue levothyroxine. #Opiate dependence. - Continue methadone. DVT PPX Lovenox + ALPS Regular Diet Full Code Problem List: 1. Status asthmaticus 2. Rheumatoid arthritis Pain Ratin Pain Location: NA Pain Goal: Remain pain free Pain Plan: see AP Tomorrow's Labs & Rationales: Sundeep Barragan 05/30/17 1202: Attending MD Review Statement Attending Statement Attending MD Statement: examined this patient, discuss w/resident/PA/DIRECTOR OF SALES, agreed w/resident/PA/DIRECTOR OF SALES, discussed with family, reviewed EMR data (avail), discussed with nursing, discussed with case mgmt, reviewed images, amended to note Attending Assessment/Plan: Patient seen/examined bedside. Patient still have b/l wheezing with much improvement, minimal use of accessory muscles, Continue taper PO steroids, needs ENT referral and pulmonary referral as outpatient. Patient is ambualtory for dvt prophyalxis. Anticipate dc soon.
[2017-05-30 07:42] VITALS: BP 152/96
[2017-05-30] MEDS ORDERED: SYMBICORT 80-10.2 GM INH (09:11)
[2017-05-30] MEDS ORDERED: PREDNISONE10 M2 PO ×3 (10:41→14:12)
[2017-05-30] MEDS ORDERED: LAMICTAL100 M2 PO (10:46)
[2017-05-30 14:04] VITALS: BP 120/82
== END 2017-05-30 14:20 | DRG 141 ==
LOC: DELPENDDIS → ERH 05:33 → ERHI 08:42 → 2NB 08:42 → ENRESERV 16:33 → 2NB 19:05 → ENTRNSPT 19:14 → CMPTRNSPT 19:16 → 2NB 05-28 09:58 → ENPENDDIS 05-29 15:35 → 2NB 05-30 14:20
PROVIDERS: Internal Medicine Hematology & Oncology; Pediatrics
DX: J45.901 Unspecified asthma with (acute) exacerbation (principal); E03.9 Hypothyroidism, unspecified; F11.20 Opioid dependence, uncomplicated; M06.9 Rheumatoid arthritis, unspecified
CPT/HCPCS: 2NBSP; 36415; 71046; 82436; 87804; 87804-59; 93005; 93010; 94644; 94645; 96365; 96375; 99291; J1650; J2920; J2930; J3490; J7512